=== PATIENT | male | born 1950 | race Caucasian/White ===

== ENCOUNTER 2020-03-05 15:23 | Outpatient (REF) | payer MEDICARE, SELFPAY | END 2020-03-05 15:24 | disposition home or self-care (01) | LOC: HO.BBR 15:23 | PROVIDERS: PCP Internal Medicine; Visit Provider Internal Medicine | DX: D45 Polycythemia vera (principal) | CPT/HCPCS: 36415 ==

== ENCOUNTER 2020-06-04 15:24 | Outpatient (REF) | payer MEDICARE, SELFPAY | END 2020-06-04 15:25 | disposition home or self-care (01) | LOC: HO.BBR 15:24 | PROVIDERS: Visit Provider Internal Medicine | DX: D45 Polycythemia vera (principal) | CPT/HCPCS: 85014; 85018; 99195 ==

== ENCOUNTER 2020-09-24 12:55 | Outpatient (REF) | payer MEDICARE, SELFPAY | END 2020-09-24 12:56 | disposition home or self-care (01) | LOC: HO.BBR 12:55 | PROVIDERS: Visit Provider Internal Medicine | DX: D45 Polycythemia vera (principal) | CPT/HCPCS: 85014; 85018; 99195 ==

== ENCOUNTER 2021-08-13 15:18 | Outpatient (REF) | payer MEDICARE, SELFPAY | END 2021-08-13 15:19 | disposition home or self-care (01) | LOC: HO.BBR 15:18 | PROVIDERS: Visit Provider Internal Medicine | DX: D45 Polycythemia vera (principal) | CPT/HCPCS: 85014; 85018; 99195 ==

== ENCOUNTER 2022-03-05 15:14 | Outpatient (REF) | payer MEDICARE, SELFPAY ==
[2022-03-05 17:00] LABS: Prostate Specific Antigen 0.72 ng/mL (<0.05-4.0)
== END 2022-03-05 15:15 | disposition home or self-care (01) ==
LOC: HO.BBR 15:14
PROVIDERS: Urology; Visit Provider Internal Medicine
DX: R97.20 Elevated prostate specific antigen [PSA] (principal); D45 Polycythemia vera; Z12.5 Encounter for screening for malignant neoplasm of prostate
CPT/HCPCS: 36415; 84153; 85014; 85018; 99195

== ENCOUNTER 2022-05-31 15:28 | Outpatient (REF) | payer MEDICARE, SELFPAY | END 2022-05-31 15:29 | disposition home or self-care (01) | LOC: HO.BBR 15:28 | PROVIDERS: Visit Provider Internal Medicine | DX: D45 Polycythemia vera (principal) | CPT/HCPCS: 85014; 85018; 99195 ==

== ENCOUNTER 2022-09-22 15:15 | Outpatient (REF) | payer MEDICARE, SELFPAY | END 2022-09-22 15:16 | disposition home or self-care (01) | LOC: HO.BBR 15:15 | PROVIDERS: Visit Provider Internal Medicine | DX: D45 Polycythemia vera (principal) | CPT/HCPCS: 85014; 85018; 99195 ==

== ENCOUNTER 2023-01-07 15:17 | Outpatient (REF) | payer MEDICARE, SELFPAY | END 2023-01-07 15:18 | disposition home or self-care (01) | LOC: HO.BBR 15:17 | PROVIDERS: PCP Internal Medicine; Visit Provider Internal Medicine | DX: D45 Polycythemia vera (principal) | CPT/HCPCS: 85018; 99195 ==

== ENCOUNTER 2023-10-17 15:11 | Outpatient (REF) | payer MEDICARE, SELFPAY | END 2023-10-17 15:12 | disposition home or self-care (01) | LOC: HO.BBR 15:11 | PROVIDERS: PCP Internal Medicine; Visit Provider Internal Medicine | DX: D45 Polycythemia vera (principal) | CPT/HCPCS: 85018; 99195 ==

== ENCOUNTER 2024-04-18 11:07 | Outpatient (AMB) | payer MEDICARE, SELFPAY ==
--- NOTE | 2024-04-18 11:47 | HO.NEPHOV ---
Vital Signs 04/18/24 11:51 Height 5 ft 5 in Weight 145 lb 6 oz BMI 24.2 BP 120/60 Blood Pressure Location Rt brachial Position Sitting Pulse 77 Pulse Source Pulse Oximeter Pulse Oximetry (%) 97 Oxygen Delivery Method Room Air Intake Visit Reasons: ENP: ETELVINA - Urgent Referral/ LVM Slubber Tender Required: No Accompanied by: Self / Same As Patient Allergies No Known Allergies Allergy (Verified 04/18/24 11:51) HPI Comments Details: Thank you for referring this delightful gentleman for evaluation of ETELVINA on CKD. He is known to have CAD needing PCI. He also has H/O ischemic cardiomyopathy and has been closely followed up by Dr Vizcaino. He has been on anti platelet medication as well as jardiance as well as Entresto. Recently he had diarrhea with development of hyperkalemia as well as ETELVINA. He was taking Entresto as well as Jardiance at that time. 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 He also has been having edema without any other signs of heart failure. Urine studies at that time showed protein. He has H/O nephritis in the past. He denies hematuria, dysuria, hemoptysis, hemetemesis, melena, sinusitis, recent antibiotics, regular NSAID's, hypercalcemia, new bone pain, H/O malignancies. He continues to have significantly lower GFR and was sent over to me for evaluation. 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 He is concerned about his drop in renal function. [facility] Medical History (Updated 04/18/24 @ 12:18 by Sridhar Hawkins MD) Ischemic cardiomyopathy Atherosclerosis of pilot station coronary artery of pilot station heart without angina pectoris Acne rosacea Elevated serum creatinine Primary osteoarthritis of right knee Right hand weakness Onychomycosis of toenail BPH with obstruction/lower urinary tract symptoms Polycythemia vera Surgical History (Updated 04/18/24 @ 11:48 by Yara Adame MA) H/O repair of rotator cuff Family History (Updated 04/18/24 @ 11:48 by Yara Adame MA) Mother Heart attack Father Colon cancer Social History (Updated 04/18/24 @ 11:47 by Yara Adame MA) Alcohol intake: never Patient Tobacco Use Status: Never used Tobacco Review of Systems Const All systems reviewed & are unremarkable except as noted in HPI and below Physical Exam Vital Signs: Last Vital Signs Pulse 77 04/18/24 11:51 BP 120/60 04/18/24 11:51 Pulse Ox 97 04/18/24 11:51 Oxygen Delivery Method Room Air 04/18/24 11:51 BMI result Body Mass Index 24.2 Const General: comfortable and no acute distress Orientation/consciousness: patient oriented x3 HEENT Head: Yes normocephalic Mouth: Normal oral and palatal mucosa present Eyes EOM: EOMs intact bilaterally Neck Neck: Yes supple Resp Auscultation: clear to auscultation bilaterally Cardio Jugular venous distension: no JVD Rate: regular rate GI Palpation (GI): Soft to palpation Auscultation: normal bowel sounds General: Yes no CVA tenderness Back/Spine/Pelvis Back: no CVA tenderness Skin General skin exam: no rashes or lesions noted Neuro General: patient oriented x3 and moves all extremities Results Reviewed Nephrology Results: Sodium 139 mmol/L (135-145) 05/02/24 Potassium 6.2 mmol/L (3.3-5.1) H* 05/02/24 Chloride 113 mmol/L (96-108) H 05/02/24 Carbon Dioxide 16 mmol/L (22-29) L 05/02/24 BUN 69 mg/dL (9-16) H 05/02/24 Creatinine 4.33 mg/dL (0.5-1.4) H* 05/02/24 Calcium 8.5 mg/dL (8.4-10.2) 05/02/24 Phosphorus 4.9 mg/dL (2.7-4.5) H 05/02/24 PTH Intact 276.0 pg/mL (8.7-77.1) H 05/02/24 Urine Creatinine 56.10 mg/dL 05/02/24 Protein/Creatinin Ratio 6.70 (<0.2) H 05/02/24 Assessment & Plan Assessment & Plan (1) Acute kidney injury superimposed on stage 3a chronic kidney disease: Code(s): N17.9 - Acute kidney failure, unspecified; N18.31 - Chronic kidney disease, stage 3a Category: Medical Plan Pat has CKD likely due to H/O recurrent nephritis as well as vascular disease. He has ETELVINA likely due to a possible combination of exacerbation of GN as well as development of tubular injury due to diarrhea while taking Entresto and Jardiance. His urine output is good. He recently did not have any recent vascular procedures. Cholesterol embolism is unlikely even though he has been on blood thinner. I have ordered detailed work up. He will need renal biopsy. I encouraged him to remain off Entresto and Jardiance for now. He does not take NSAID's. He will need renal imaging if not done already. He does not need renal replacement now but should remain on a low K diet. All these have been explained in detail. Time spent retrieving and reviewing records, encounter and documentation 53 minutes. All questions answered and follow up given Orders: Orders Creatinine 1 Week N17.9 - Acute kidney failure, unspecified, N18.31 - Chronic kidney disease, stage 3a Blood Urea Nitrogen 1 Week N17.9 - Acute kidney failure, unspecified, N18.31 - Chronic kidney disease, stage 3a Immunofixation Pnl, Serum 1 Week N17.9 - Acute kidney failure, unspecified, N18.31 - Chronic kidney disease, stage 3a Vitamin D 25-OH Total 1 Week N17.9 - Acute kidney failure, unspecified, N18.31 - Chronic kidney disease, stage 3a Phosphorus 1 Week N17.9 - Acute kidney failure, unspecified, N18.31 - Chronic kidney disease, stage 3a Proteinase 3 PR3 Antibodies 1 Week N17.9 - Acute kidney failure, unspecified, N18.31 - Chronic kidney disease, stage 3a Anti Glomerular Basement Memb 1 Week N17.9 - Acute kidney failure, unspecified, N18.31 - Chronic kidney disease, stage 3a Complement C3 1 Week N17.9 - Acute kidney failure, unspecified, N18.31 - Chronic kidney disease, stage 3a Complement C4 1 Week N17.9 - Acute kidney failure, unspecified, N18.31 - Chronic kidney disease, stage 3a Electrolytes 1 Week N17.9 - Acute kidney failure, unspecified, N18.31 - Chronic kidney disease, stage 3a Calcium 1 Week N17.9 - Acute kidney failure, unspecified, N18.31 - Chronic kidney disease, stage 3a Immunofixation, Random Urine 1 Week N17.9 - Acute kidney failure, unspecified, N18.31 - Chronic kidney disease, stage 3a Parathyroid Hormone Intact 1 Week N17.9 - Acute kidney failure, unspecified, N18.31 - Chronic kidney disease, stage 3a Anti DNA DS Antibody 1 Week N17.9 - Acute kidney failure, unspecified, N18.31 - Chronic kidney disease, stage 3a Myeloperoxidase Antibody 1 Week N17.9 - Acute kidney failure, unspecified, N18.31 - Chronic kidney disease, stage 3a Phospholipase A2 Receptor Pnl 1 Week N17.9 - Acute kidney failure, unspecified, N18.31 - Chronic kidney disease, stage 3a Prothrombin Time INR 1 Week N17.9 - Acute kidney failure, unspecified, N18.31 - Chronic kidney disease, stage 3a Protein Creatinine Ratio, Ur 1 Week N17.9 - Acute kidney failure, unspecified, N18.31 - Chronic kidney disease, stage 3a Coding Level of Care Code New Pt Level 5 (06297) Diagnoses Acute kidney injury superimposed on stage 3a chronic kidney disease N17.9; N18.31
[2024-04-18 11:51] VITALS: BP 120/60; PULSE 77; O2SAT 97; BMI 24.2
--- OUTSIDE RECORDS SUMMARY | 2024-04-18 12:58 | XMS_ITS | Clinical Summary ---
Author Organization [facility] Facility Address [address] [address] Care Team Providers Care Placing Judge Name Role Phone Unavailable Primary Care Provider Unavailabl e Medications aspirin (ST KEENAN) 81 MG EC tablet Take 81 mg by mouth 1 (one) time each day Active atorvastatin (LIPITOR) 80 MG tablet Take 80 mg by mouth 1 (one) time each day Active finasteride (PROSCAR) 5 MG tablet Take 5 mg by mouth 1 (one) time each day Do not crush, chew, or split. Active metoprolol succinate XL (TOPROL XL) 25 MG 24 hr tablet Take 25 mg by mouth 1 (one) time each day Do not crush or chew. Active tamsulosin (FLOMAX) 0.4 MG 24 hr capsule Take 0.4 mg by mouth 1 (one) time each day Active ticagrelor (BRILINTA) 90 MG tablet Take 90 mg by mouth in the morning and 90 mg in the evening. Active acetaminophen (TYLENOL) 325 MG tablet Take by mouth every 6 (six) hours if needed for mild pain Active Melatonin 3 MG capsule Take by mouth Active ONDANSETRON HCL IJ Inject as directed Active sennosides-docu sate sodium (SENOKOT-S) 8.6-50 MG tablet Take 1 tablet by mouth 1 (one) time each day Active Active Problems Problem Noted Date Diagnosed Date Leukocytosis 12/02/2022 Polycythemia 12/02/2022 Thrombocytosis 12/02/2022 Ischemic cardiomyopathy 12/02/2022 Social History Tobacco Use Types Packs/Day Years Used Date Smoking Tobacco: Never Assessed Sex and Gender Information Value Date Recorded Sex Assigned at Not on file Legal Sex Male 10:46 AM EDT Gender Identity Not on file Sexual Orientation Not on file Plan of Treatment Health Maintenance Due Date Last Done Comments Colorectal Cancer Screening: Annual FOBT 1997 Colorectal Cancer Screening: Colonoscopy 1997 Colorectal Cancer Screening: Sigmoidoscopy 1997 Influenza Vaccine (#1) 2023 2, 01/05/2017, 12/27/2015, Additional history exists Pneumococcal Vaccine: 65+ Years Completed 01/05/2017, 12/27/2015 Hepatitis B Vaccine Aged Out No longe r eligible based on patient's age to complete this topic Insurance [facility]
--- OUTSIDE RECORDS SUMMARY | 2024-04-18 12:59 | XMS_ITS | Encounter Summary ---
Author Organization [facility] Address [phone] [place] [address] Care Team Providers Care Vibrating Screen Operator Name Role Phone Ken Kyle MD Primary Care Provider [phone] Tate Moulton MD Unavailable Tanisha Perkins MD Unavailable [phone] Harsh Ross MD Unavailable [phone] Suellen Mccann MD Unavailable [phone] Chante Vizcaino MD Unavailable [phone] Reason for Referral * Consultation (Within 3 days (urgent)) - Pending Review Specialty Diagnoses / Procedures Referred By Nona leon Referred To Contact Diagnoses Acute kidney injury Ken Kyle MD [address] [facility], [address] [place] [address] Email: Referral ID Status Reason Start Date Expiration Date V isits Requested Visits Authorized [id number] Pending Review 04/08/2024 04/07/2025 1 1 Scheduling Instructions [facility] Reason for Visit * Reason Onset Date Comments Triage 04/06/2024 Yellow - High Po tassium Encounter Details Date Type Department Care Team (Late st Contact Info) Description 04/06/2024 Telephone [employer] [address] [place] [address] Ken Kyle MD [address] [facility], [address] [place] [address] Triage (Yellow - High Potassium) Social History Tobacco Use Types Packs/Day Years Used Date Smoking Tobacco: Never Smokeless Tobacco: Never Alcohol Use Standard Drinks/Week Comments Yes 0 (1 standard drink = 0.6 oz pur e alcohol) occ Education Answer Date Recorded Are you interested in more education? Not on deep e 07/02/2022 Are you concerned about learning? Not on file 07/02/2022 No 07/02/2022 No 07/02/2022 Digital Access Answer Date Recorded No 08/02/2022 No 08/02/2022 Reliable internet access at home? Not on file 08/02/2022 Device with a working camera? Not on file Intimate Partner Violence Answer Date R ecorded Denied Basic Needs Not on file 02/24/2023 In the past 12 months have y ou been in a relationship with a person who hurts, threatens, or tries to control you? No 02/24/2023 Worried food would run out Not on file 02/24 In the past 12 months have y ou been in a relationship with a person who hurts, threatens, or tries to control you? No 02/24/2023 Sex and Gender Information Value Date Recorded Sex Assigned at Not on file Gender Identity Not on file Sexual Orientation Not on file documented as of this encounter Progress Notes * Ken Kyle MD - 04/08/2024 1:27 PM ESTAddended by: KEN KYLE on: 04/08/2024 01:27 PM Modules accepted: Orders * Kodi Sanchez RN - 04/06/2024 2:38 PM ESTAddended by: KODI SANCHEZ on: 04/06/2024 02:38 PM Modules accepted: Orders * Kodi Sanchez RN - 04/06/2024 2:24 PM EST Spoke to Pat, he denies any sx wouldn't even know it if he didn't have blood work . Patient notified of instructions per provider. Verbalizes understanding and agreement Requesting urgent neph referral be sent to [facility], pended. 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 He has appts already Tue and Tue. * Judy Negron - 04/06/2024 12:09 PM EST Pt calling the office per recommendation of Dr. Kyle, He was advised to call the office for triage. He states he is not having any current symptoms, but his Potassium level is high. Please advise. Central Support Director [employer] (Please do not reply to this user; this inbox is not monitored.) Thank you. * Ken Kyle MD - 04/06/2024 11:37 AM EST I called the patient to review his lab results. I left him a message to call back to talk to triage. His kidney function is still very poor and much worse than it was a few months ago, only slightly better than it was a couple days ago when he was in the emergency room. His potassium is also little bit high. This is most likely a side effect from medication. He should stop Entresto and Farxiga immediately. If he is having any trouble with shortness of breath or significant lower extremity edema, he should return to the emergency room immediately. Otherwise see my recommendations below. He can continue his other medication. He should not take any nonsteroidals. He should follow a low-sodium diet closely. He should also avoid high potassium foods such as fruits and fruit juices. He needs an appointment to see nephrology as soon as possible. I have entered a referral. See if wecan get him an appointment next week. You should also follow-up with me as planned next week. documented in this encounter Plan of Treatment Upcoming Encounters Date Type Department Care Team (Late st Contact Info) Description 08/01/2024 1:00 PM EDT Office Visit [address] [address] Ken Kyle MD [address] [place] [address], [address] [place] [address] [email or web address] Scheduled Referrals Name Type Priority Associated Diagnoses Order Schedule Ambulatory referral to External Nephrology Outpatient Referral Routine Acute kidney injury Ordered: 04/08/2024 documented as of this encounter Visit Diagnoses Diagnosis Acute kidney injury- Primary documented in this encounter Additional Health Concerns Assessment Noted Time PHQ-2 Depression Total Score: 0 02/25/20 23 2:54 PM EST documented as of this encounter Care Teams Vibrating Screen Operator Relationship Specialty Start Date End Date Ken Kyle MD [address] [place] [address], [address] [place] [address] PCP - General Internal Medicine 05/15/18 Tate Moulton MD [address] [place] [address], [address] [place] [address] [email or web address] Urology 06/19/18 Tanisha Perkins MD [address] [place] [id number] [email or web address] Oncology 06/19/18 Harsh Ross MD [facility] [address] [facility] [address] [place] [address] Orthopedic Surgery 10/15/19 Suellen Mccann MD [address] [facility] [address] [place] [address] Gastroenterology 10/23/20 Chante Vizcaino MD [address] [place] [id number] [email or web address] Cardiology 11/12/22 documented as of this encounter Additional Source Comments The information contained in this document represents components of the legal health record. It is not the complete legal health record.[facility]
--- OUTSIDE RECORDS SUMMARY | 2024-04-18 12:59 | XMS_ITS | Encounter Summary ---
Author Organization [facility] Address [phone] [facility] [place] [address] Care Team Providers Care Content Architect Name Role Phone Sherman Miller MD Primary Care Provider [phone] Tate Moulton MD Unavailable Tanisha Perkins MD Unavailable [phone] Harsh Ross MD Unavailable Suellen Mccann MD Unavailable [phone] Chante Vizcaino MD Unavailable [phone] Reason for Visit * Reason Onset Date Comments Referral 04/11/2024 Encounter Details Date Type Department Care Team (Late st Contact Info) Description 04/11/20[address] [facility] Medicine [address] [place] [address] [place] [address] Sherman Miller MD [address] [facility], [address] [place] [address] [email or web address] Referral Social History Tobacco Use Types Packs/Day Years [...] as of this encounter Progress Notes * Elle Sherman RN - 04/11/2024 2:46 PM EST This referral was signed by PCP on 04/08 * Lissette Viera - 04/11/2024 2:25 PM EST [facility] Top Smart Phrases: Referral Request Caller stated this is urgent and if an insurance authorization is not received the pt will have to be rescheduled. 1. Name of the office where the patient has been seen/requests to be seen: [facility] 2. Reason for referral/specialist appointment and the diagnosis code: N17.0 2A. Have you seen this provider before for this same problem? YES/NO: N/A 2B. If this is a new problem, is your PCP aware of your symptoms? YES/NO: N/A 3. Date of appointment(s):04/18/24 4. Name of specialist provider: Dr. Sridhar Hawkins 5. NPI number to enter for referral authorization (enter n/a if not available): [id number] 6. Number of visits requested for referral: 6 7. Fax number of specialist office to send referral authorization: [phone] Central Support Cork Cutter (Please do not reply to this user; this inbox is not monitored.) Thank you. documented in this encounter Plan of Treatment Upcoming Encounters Date Type Department Care Team (Late st Contact Info) Description 08/01/2024 1:00 PM EDT Office Visit [address] [address] Sherman Miller MD [address] [place] [address], [address] [place] [address] [email or web address] documented as of this encounter Visit Diagnoses Not on filedocumented in this encounter Additional Health Concerns Assessment Noted Time PHQ-2 Depression Total Score: 0 02/25/20 23 2:54 PM EST documented as of this encounter Care Teams Content Architect Relationship Specialty Start Date End Date Sherman Miller MD [address] [place] [address], [address] [place] [address] [email or web address] PCP - General Internal Medicine 05/15/18 Tate Moulton MD [address] [place] [address], [address] [place] [id number] [email or web address] Urology 06/19/18 Tanisha Perkins MD [address] [place] [id number] [email or web address] Oncology 06/19/18 Harsh Ross MD [facility] [address] [address] Orthopedic Surgery 10/15/19 Suellen Mccann MD [address] [facility] [address] [place] [address] Gastroenterology 10/23/20 Chante Vizcaino MD [address] [place] [address] [email or web address] Cardiology 11/12/22 documented as of this encounter Additional Source Comments The information contained in this document represents components of the legal health record. It is not the complete legal health record.[facility]
--- OUTSIDE RECORDS SUMMARY | 2024-04-18 12:59 | XMS_ITS | Encounter Summary ---
Author Organization [facility] Address [phone] [place] [address] Care Team Providers Care Rotogravure Press Operator Name Role Phone Sherman Miller MD Primary Care Provider [phone] Tate Moulton MD Unavailable Tanisha Perkins MD Unavailable [phone] Harsh Ross MD Unavailable Suellen Mccann MD Unavailable [phone] Chante Vizcaino MD Unavailable [phone] Reason for Visit * Reason Comments ER Encounter Details Date Type Department Care Team (Late st Contact Info) Description 04/10/2024 11:30 AM EST Office Visit [facility] Medicine [address] [place] [address] [place] [address] Sherman Miller MD 22 [facility], [address] [place] [address] [email or web address] Acute kidney injury (Primary Dx); BPH with obstruction/lower urinary tract symptoms; Ischemic cardiomyopathy; Polycythemia vera Social History Tobacco Use Types Packs/Day Years [...] on file documented as of this encounter Last Filed Vital Signs Vital Sign Reading Time Taken Comments Blood Pressure 147/75 04/10/2024 11:34 AM EST Pulse 73 04/10/2024 11:34 AM EST Temperature 36.8 ??C (98.2 ??F) 04/10/2024 11:[address] Respiratory Rate - - Oxygen Saturation 97% 04/10/2024 11:34 AM EST Inhaled Oxygen Concentration - - Weight 65.5 kg (144 lb 6.4 oz) 04/10/2024 11:34 AM EST Height 164.4 cm (5' 4.72 ) 04/10/2024 11:[address] Body Mass Index 24.23 04/10/2024 11:34 AM EST documented in this encounter Progress Notes * Sherman Miller MD - 04/10/2024 11:30 AM EST Subjective: Pauline Sandoval is a 73 y.o. male seen for follow-up of acute kidney injury. His creatinine had jumped up to 5 after he had an acute gastrointestinal illness associated with diarrhea. Recheck of his creatinine last week shows creatinine was down to 4.4. His baseline has been between 1.4 and 1.8. Last week Entresto and Farxiga were discontinued. He has been feeling well. No edema, chest pain, or shortness of breath. He has been feeling well. He has been eating and drinking normally. He is voiding normally. BPH: Ultrasound in the [place] emergency department showed a PVR 500 cc, then down to 200 cc when he tried to void again. He has been taking tamsulosin for over a year. Ultrasound at urology about a year ago showed a PVR of 36 cc per Heart failure has been doing well. No edema, orthopnea, or shortness of breath. Current Outpatient Medications Ordered in [facility] Medication Sig Abbreviated Dosage ascorbic acid, vitamin C, (VITAMIN C) 500 MG tablet Take 500 mg by mouth daily. See instructions for application aspirin 81 MG EC tablet Take 81 mg by mouth. See instructions for application atorvastatin (LIPITOR) 80 MG tablet Take 80 mg by mouth. See instructions for application BRILINTA 90 mg Tab Take 1 tablet by mouth 2 (two) times a day. See instructions for application cholecalciferol (VITAMIN D3) 25 MCG (1,000 unit) tablet Take 1,000 Units by mouth daily. See instructions for application finasteride (PROSCAR) 5 mg tablet Take 5 mg by mouth daily. See instructions for application metoprolol succinate (TOPROL-XL) 25 MG 24 hr tablet Take 25 mg by mouth. See instructions for application nitroglycerin (NITROSTAT) 0.[address] 0.4 mg under the tongue. See instructions for application tamsulosin (FLOMAX) 0.4 mg Cap Take 0.4 mg by mouth 2 (two) times a day. See instructions for application Patient Active Problem List Diagnosis Date Noted Acute kidney injury 10/23/2020 Ischemic cardiomyopathy 02/22/2023 Atherosclerosis of [place] coronary artery of [place] heart without angina pectoris 11/12/2022 Acne rosacea 02/24/2022 Primary osteoarthritis of right knee 10/23/2020 Onychomycosis of toenail 10/15/2019 Right hand weakness 10/15/2019 Polycythemia vera 06/19/2018 BPH with obstruction/lower urinary tract symptoms 06/19/2018 Past Medical History: Diagnosis Date BPH with obstruction/lower urinary tract symptoms 06/19/2018 Bunion of great toe of left foot Bunion of great toe of right foot Elevated blood pressure reading 2017 Resolved 2018, became orthostatic on SHANICE inhibitor. Onychomycosis bilateral Polycythemia vera 06/19/2018 Past Surgical History: Procedure Laterality Date BUNIONECTOMY Right PCI- DRUG ELUTING STENT 10/21/2022 LAD , 2 ARSALAN, Dr Vizcaino, [facility] ROTATOR CUFF REPAIR Right 2012 ROTATOR CUFF REPAIR Left 2008 (Not in a hospital admission) No Known Allergies Social History Tobacco Use Smoking status: Never Smokeless tobacco: Never Substance Use Topics Alcohol use: Yes Comment: occ Family History Problem Relation Age of Onset Aneurysm Mother Colon cancer Father No Known Problems Daughter teacher for [employer] No Known Problems Daughter teacher, [employer] No Known Problems Son IT for [employer] Review of Systems Review of Systems Vitals: 04/10/24 1134 BP: (!) 147/75 BP Location: Right arm Cuff Size: Medium Pulse: 73 Temp: 36.8 ??C (98.2 ??F) SpO2: 97% Weight: 65.5 kg (144 lb 6.4 oz) Height: 164.4 cm (5' 4.72 ) Body mass index is 24.23 kg/m??. Objective: Physical Exam Constitutional: General: He is not in acute distress. Appearance: He is well-developed. Cardiovascular: Rate and Rhythm: Normal rate and regular rhythm. Heart sounds: Normal heart sounds. No murmur heard. No gallop. Pulmonary: [place]: No respiratory distress. Breath sounds: Normal breath sounds. No rales. Musculoskeletal: Right lower leg: No edema. Left lower leg: No edema. Data Review Hospital Outpatient Visit on 04/05/2024 Component Date Value Ref Range Status SODIUM 04/05/2024 133 133 - 146 mmol/L Final CHLORIDE 04/05/2024 100 96 - 108 mmol/L Final POTASSIUM 04/05/2024 5.6 (H) 3.3 - 5.1 mmol/L Final CO2 04/05/2024 22 21 - 35 mmol/L Final BUN 04/05/2024 74 (H) 6 - 19 mg/dL Final CREATININE 04/05/2024 4.40 (H) 0.5 - 1.5 mg/dL Final GLUCOSE 04/05/2024 83 70 - 99 mg/dL Final CALCIUM 04/05/2024 8.0 (L) 8.4 - 10.3 mg/dL Final EGFR 04/05/2024 13 (L) >59 mL/min/1.73m2 Final Estimated glomerular filtration rate calculated using the CKD-EPI refit equation. ANION GAP 04/05/2024 17 10 - 20 mmol/L Final Hospital Outpatient Visit on 03/29/2024 Component Date Value Ref Range Status LIPASE 03/29/2024 42 16 - 63 U/L Final ALKALINE PHOSPHATASE 03/29/2024 146 (H) 39 - 117 U/L Final TOTAL BILIRUBIN 03/29/2024 0.4 0.0 - 1.2 mg/dL Final DIRECT BILIRUBIN 03/29/2024 <0.2 0 - 0.3 mg/dL Final Bilirubin (Indirect) 03/29/2024 NOT CALCULATED 0 - 1.5 mg/dL Final AST 03/29/2024 15 0 - 37 U/L Final ALT 03/29/2024 8 0 - 40 U/L Final TOTAL PROTEIN 03/29/2024 6.3 (L) 6.5 - 8.0 g/dL Final ALBUMIN 03/29/2024 3.3 (L) 3.9 - 4.8 g/dL Final GLOBULIN 03/29/2024 3.0 1 - 4.8 g/dL Final A/G Ratio 03/29/2024 1.10 1.00 - 4.80 RATIO Final SODIUM 03/29/2024 136 133 - 146 mmol/L Final CHLORIDE 03/29/2024 104 96 - 108 mmol/L Final POTASSIUM 03/29/2024 6.4 3.3 - 5.1 mmol/L Final Comment: Critical value: Results called to and read back by: null CO2 03/29/2024 17 (L) 21 - 35 mmol/L Final BUN 03/29/2024 76 (H) 6 - 19 mg/dL Final CREATININE 03/29/2024 5.00 (H) 0.5 - 1.5 mg/dL Final GLUCOSE 03/29/2024 73 70 - 99 mg/dL Final CALCIUM 03/29/2024 7.9 (L) 8.4 - 10.3 mg/dL Final EGFR 03/29/2024 11 (L) >59 mL/min/1.73m2 Final Estimated glomerular filtration rate calculated using the CKD-EPI refit equation. ANION GAP 03/29/2024 21 (H) 10 - 20 mmol/L Final WBC 03/29/2024 26.90 (H) 4.00 - 11.00 K/uL Final RBC 03/29/2024 8.72 (H) 4.50 - 5.90 M/uL Final HGB 03/29/2024 15.8 13.5 - 17.5 g/dL Final HCT 03/29/2024 59.2 (H) 41.0 - 53.0 % Final PLT 03/29/2024 576 (H) 150 - 450 K/uL Final MCV 03/29/2024 67.9 (L) 80.0 - 100.0 fL Final MCH 03/29/2024 18.1 (L) 27.0 - 31.0 pg Final MCHC 03/29/2024 26.7 (L) 32.0 - 36.0 g/dL Final RDW 03/29/2024 22.3 (H) 11.5 - 14.5 % Final MPV 03/29/2024 10.2 8.4 - 12.0 fL Final NRBC 03/29/2024 0.00 0.00 /100 WBCs Final ABSOLUTE NRBC 03/29/2024 0.00 0.00 K/uL Final DIFF METHOD 03/29/2024 Auto Final NEUTS 03/29/2024 87.2 (H) 48.0 - 76.0 % Final LYMPHS 03/29/2024 4.4 (L) 18.0 - 41.0 % Final MONOS 03/29/2024 3.6 (L) 4.0 - 11.0 % Final EOS 03/29/2024 3.7 0.0 - 5.0 % Final BASOS 03/29/2024 0.4 0.0 - 1.5 % Final Granulocytes, immature (%) 03/29/2024 0.7 0.0 - 0.9 % Final ABSOLUTE NEUTS 03/29/2024 23.44 (H) 1.92 - 7.60 K/uL Final ABSOLUTE LYMPHS 03/29/2024 1.18 0.72 - 4.10 K/uL Final ABSOLUTE MONOS 03/29/2024 0.96 0.16 - 1.10 K/uL Final ABSOLUTE EOS 03/29/2024 1.00 (H) 0.00 - 0.50 K/uL Final ABSOLUTE BASOS 03/29/2024 0.12 0.00 - 0.15 K/uL Final Granulocytes, immature 03/29/2024 0.20 (H) 0.00 - 0.09 K/uL Final No results found for any visits on 04/10/24. 1. Acute kidney injury (Primary) Assessment & Plan: Probably multifactorial. We should see a significant improvement since stopping Entresto. There clearly was a component of dehydration, but also may be due to his BPH since he did have a significantly elevated PVR. Referral was already sent to nephrology and the patient is going to schedule an appointment for initial consultation. He also will see urology to review his BPH and elevated PVR. He may need more medication or possibly surgery if his PVR remains high. Orders: - Basic metabolic panel 2. BPH with obstruction/lower urinary tract symptoms 3. Ischemic cardiomyopathy Assessment & Plan: Symptom martin he is doing well since stopping Entresto and farxiga. His blood pressure is a little higher since the medication change. He is going to see cardiology again tomorrow. I like to see what his metabolic panel looks like today. If he significantly better, he possibly could go on a lower dose of an ARB or SHANICE inhibitor. I will leave this up to cardiology. 4. Polycythemia vera Assessment & Plan: Hemoglobin has gone up a little bit. He will follow-up as planned with hematology next month. He islikely going to be due for another phlebotomy. Return in about 1 month (around 05/08/2024). There are no Patient Instructions on file for this visit. I have maintained a long-term longitudinal relationship with this patient, overseeing the care of their chronic medical conditions. This has significantly influenced my decision-making and treatment plans during today's encounter. documented in this encounter Miscellaneous Notes * Assessment & Plan Note - Sherman Miller MD - 04/10/2024 12:04 PM EST Associated Problem(s): Acute kidney injury Probably multifactorial. We should see a significant improvement since stopping Entresto. There clearly was a component of dehydration, but also may be due to his BPH since he did have a significantly elevated PVR. Referral was already sent to nephrology and the patient is going to schedule an appointment for initial consultation. He also will see urology to review his BPH and elevated PVR. He may need more medication or possibly surgery if his PVR remains high. * Assessment & Plan Note - Sherman Miller MD - 04/10/2024 12:03 PM EST Associated Problem(s): Ischemic cardiomyopathy Symptom martin he is doing well since stopping Entresto and farxiga. His blood pressure is a little higher since the medication change. He is going to see cardiology again tomorrow. I like to see what his metabolic panel looks like today. If he significantly better, he possibly could go on a lower dose of an ARB or SHANICE inhibitor. I will leave this up to cardiology. * Assessment & Plan Note - Sherman Miller MD - 04/10/2024 12:02 PM EST Associated Problem(s): Polycythemia vera Hemoglobin has gone up a little bit. He will follow-up as planned with hematology next month. He islikely going to be due for another phlebotomy. documented in this encounter Plan of Treatment Upcoming Encounters Date Type Department Care Team (Late st Contact Info) Description 08/01/2024 1:00 PM EDT Office Visit [facility] Medicine [address] [place] [address] [place] [address] Sherman Miller MD [address] [place] [address], [address] [place] [address] [email or web address] documented as of this encounter Results * (ABNORMAL) Basic metabolic panel (04/10/2024 12:14 PM EST) SODIUM 137 133 - 146 mmol/L [facility] CHLORIDE 105 96 - 108 mmol/L [facility] POTASSIUM 5.7(H) 3.3 - 5.1 mmol/L [facility] CO2 18(L) 21 - 35 mmol/L [facility] BUN 76(H) 6 - 19 mg/dL [facility] CREATININE 4.30(H) 0.5 - 1.5 mg/dL [facility] GLUCOSE 85 70 - 99 mg/dL [facility] CALCIUM 8.0(L) 8.4 - 10.3 mg/dL [facility] EGFR 14(L) >59 mL/min/1.7 3m2 [facility] Comment:Estimated glomerular filtration rate calculated using the CKD-EPI refit equation. ANION GAP 20 10 - 20 mmol/L [facility] Blood 04/10/2024 12:1 4 PM EST 04/10/2024 12:25 PM EST Sherman Miller MD LAB BLOOD ORDERABL ES Performing Organization Address City/State/[facility] [[email or web address]] Co de Phone Number [facility] [address] [place] [address] documented in this encounter Visit Diagnoses Diagnosis Acute kidney injury- Primary BPH with obstruction/lower urinary tract symptoms Ischemic cardiomyopathy Other specified forms of chronic ischemic heart disease Polycythemia vera documented in this encounter Additional Health Concerns Assessment Noted Time PHQ-2 Depression Total Score: 0 02/25/20 23 2:54 PM EST documented as of this encounter Care Teams Rotogravure Press Operator Relationship Specialty Start Date End Date Sherman Miller MD [address] [place] [address], [address] [place] [address] [email or web address] PCP - General Internal Medicine 05/15/18 Tate Moulton MD [address] [place] [address], [address] [place] [address] [email or web address] 06/19/18 Tanisha Perkins MD [address] [place] [address] [email or web address] Oncology 06/19/18 Harsh Ross MD [address] [address] Orthopedic Surgery 10/15/19 Suellen Mccann MD [address] [facility] [address] [place] [address] Gastroenterology 10/23/20 Chante Vizcaino MD [address] [place] [address] Cardiology 11/12/22 documented as of this encounter Additional Source Comments The information contained in this document represents components of the legal health record. It is not the complete legal health record.[facility]
--- OUTSIDE RECORDS SUMMARY | 2024-04-18 12:59 | XMS_ITS | Encounter Summary ---
Author Organization [facility] Address [phone] [email or web address] [address] Care Team Providers Care Solid Waste Landfill Technician Name Role Phone Sherman Miller MD Primary Care Provider [phone] Tate Moulton MD Unavailable Tanisha Perkins MD Unavailable [phone] Harsh Ross MD Unavailable Suellen Mccann MD Unavailable [phone] Chante Vizcaino MD Unavailable [phone] Encounter Details Date Type Department Care Team (Latest Contact Info) Description 04/10/2024 12:01 PM EST - 04/10/2024 11:59 PM EST Hospital Encounter [facility] [address] [place] [address] [place], [place] [id number] Sherman Miller MD [address] [facility] [place] [address] [email or web address] Discharge Disposition: Home or Self Care Social History Tobacco Use Types Packs/Day Years [...] on file documented as of this encounter Medications at Time of Discharge Medication Sig Dispensed Refills Start Date End Date ascorbic acid, vitamin C, (VITAMIN C) 500 MG tablet Take 500 mg by mouth daily. aspirin 81 MG EC tablet Take 81 mg by mouth. atorvastatin (LIPITOR) 80 MG tablet Take 80 mg by mouth. 10/27/2022 BRILINTA 90 mg Tab Take 1 tablet by mouth 2 (two) times a day. 10/27/2022 cholecalciferol (VITAMIN D3) 25 MCG (1,000 unit) tablet Take 1,000 Units by mouth daily. finasteride (PROSCAR) 5 mg tablet Take 5 mg by mouth daily. metoprolol succinate (TOPROL-XL) 25 MG 24 hr tablet Take 25 mg by mouth. 10/27/2022 nitroglycerin (NITROSTAT) 0.[address] 0.4 mg under the tongue. 10/27/2022 tamsulosin (FLOMAX) 0.4 mg Cap Take 0.4 mg by mouth 2 (two) times a day. documented as of this encounter Plan of Treatment Upcoming Encounters Date Type Department Care Team (Late st Contact Info) Description 08/01/2024 1:00 PM EDT Office Visit [facility] [address] [place] [address] [place] [address] Sherman Miller MD [address] [facility] [address] [place] [address] [email or web address] documented as of this encounter Procedures Procedure Name Priority Date/Time Associated Diagnosis Comments BASIC METABOLIC PANEL Routine 04/10/2024 12:14 PM EST Acute kidney injury documented in this encounter Results * (ABNORMAL) Basic metabolic panel (04/10/2024 12:14 PM EST) SODIUM 137 133 - 146 mmol/L [facility] CHLORIDE 105 96 - 108 mmol/L [facility] POTASSIUM 5.7(H) 3.3 - 5.1 mmol/L [facility] CO2 18(L) 21 - 35 mmol/L [facility] BUN 76(H) 6 - 19 mg/dL [facility] CREATININE 4.30(H) 0.5 - 1.5 mg/dL [facility] GLUCOSE 85 70 - 99 mg/dL [facility] CALCIUM 8.0(L) 8.4 - 10.3 mg/dL [facility] EGFR 14(L) >59 mL/min/1.7 3m2 [facility] Comment:Estimated glomerular filtration rate calculated using the CKD-EPI refit equation. ANION GAP 20 10 - 20 mmol/L [facility] Blood 04/10/2024 12:1 4 PM EST 04/10/2024 12:25 PM EST Sherman Miller MD LAB BLOOD ORDERABL ES [address] [address] documented in this encounter Visit Diagnoses Diagnosis Acute kidney injury documented in this encounter Additional Health Concerns Assessment Noted Time PHQ-2 Depression Total Score: 0 02/25/20 23 2:54 PM EST documented as of this encounter Care Teams Solid Waste Landfill Technician Relationship Specialty Start Date End Date Sherman Miller MD [address] [place] [address], [address] [place] [address] [email or web address] PCP - General Internal Medicine 05/15/18 Tate Moulton MD [address] [facility], [address] [place] [address] [email or web address] Urology 06/19/18 Tanisha Perkins MD [address] [place] [address] [email or web address] Oncology 06/19/18 Harsh Ross MD [address] [place] [address] Orthopedic Surgery 10/15/19 Suellen Mccann MD [address] [facility] [address] [place] [address] Gastroenterology 10/23/20 Chante Vizcaino MD [address] [place] [address] [email or web address] Cardiology 11/12/22 documented as of this encounter Additional Source Comments The information contained in this document represents components of the legal health record. It is not the complete legal health record.[facility]
--- OUTSIDE RECORDS SUMMARY | 2024-04-18 12:59 | XMS_ITS | Encounter Summary ---
Author Organization [facility] Address [phone] [place] [address] Care Team Providers Care Skein Yard Drier Name Role Phone Sherman Miller MD Primary Care Provider [phone] Tate Moulton MD Unavailable Tanisha Perkins MD Unavailable [phone] Harsh Ross MD Unavailable [phone] Suellen Mccann MD Unavailable [phone] Chante Vizcaino MD Unavailable [phone] Reason for Referral * Consultation (Within 3 days (urgent)) - Pending Review Specialty Diagnoses / Procedures Referred By Nona leon Referred To Contact Diagnoses Acute kidney injury Sherman Miller MD [address] [facility] [place] [address] Email: [facility] [address] [facility] [place] [address] Referral ID Status Reason Start Date Expiration Date V isits Requested Visits Authorized [id number] Pending Review 04/06/2024 04/06/2025 6 6 Encounter Details Date Type Department Care Team (Late st Contact Info) Description 04/06/2024 Orders Only [address] [place] [address] Sherman Miller MD [address] [place] [address], [address] [place] [address] [email or web address] Acute kidney injury (Primary Dx) Social History Tobacco Use Types Packs/Day Years [...] on file documented as of this encounter Plan of Treatment Upcoming Encounters Date Type Department Care Team (Late st Contact Info) Description 08/01/2024 1:00 PM EDT Office Visit [address] [place] [address] Sherman Miller MD [address] [place] [address], [address] [place] [address] [email or web address] Scheduled Referrals Name Type Priority Associated Diagnoses Order Schedule Ambulatory referral to External Nephrology Outpatient Referral Routine Acute kidney injury Ordered: 04/06/2024 documented as of this encounter Visit Diagnoses Diagnosis Acute kidney injury- Primary documented in this encounter Additional Health Concerns Assessment Noted Time PHQ-2 Depression Total Score: 0 02/25/20 23 2:54 PM EST documented as of this encounter Care Teams Skein Yard Drier Relationship Specialty Start Date End Date Sherman Miller MD [address] [place] [address], [address] [place] [address] [email or web address] PCP - General Internal Medicine 05/15/18 Tate Moulton MD [address] [place] [address], [address] [place] [address] [email or web address] 06/19/18 Tanisha Perkins MD [address] [place] [address] [email or web address] Oncology 06/19/18 Harsh Ross MD [address] [place] [address] Orthopedic Surgery 10/15/19 Suellen Mccann MD [address] [place] [address] Gastroenterology 10/23/20 Chante Vizcaino MD [address] [place] [address] [email or web address] Cardiology 11/12/22 documented as of this encounter Additional Source Comments The information contained in this document represents components of the legal health record. It is not the complete legal health record.[facility]
--- OUTSIDE RECORDS SUMMARY | 2024-04-18 12:59 | XMS_ITS | Encounter Summary ---
Author Organization [facility] Address [phone] [facility] [place] [address] Care Team Providers Care Blind Escort Name Role Phone Sherman Miller MD Primary Care Provider [phone]- [phone] Tate Moulton MD Unavailable Tanisha Perkins MD Unavailable [phone] Harsh Ross MD Unavailable [phone] Suellen Mccann MD Unavailable [phone] Chante Vizcaino MD Unavailable [phone] Reason for Visit * Reason Onset Date Comments Referral 04/02/2024 Kidney care spec ialist question 04/02/2024 Encounter Details Date Type Department Care Team (Late st Contact Info) Description 04/02/2024 Telephone [facility] [address] [place], [place] [phone] Sherman Miller MD [address] [place] [address], [address] [place], [place] [phone] [email or web address] Referral (Kidney manager intensive care ); question Social History Tobacco Use Types Packs/Day Years [...] as of this encounter Progress Notes * Sherman Miller MD - 04/05/2024 2:27 PM EST Will review results to determine if need for nephrology referral. Will discuss with patient at appointment next week * Carolina Corey RN - 04/05/2024 2:17 PM ESTAddended by: CAROLINA COREY on: 04/05/2024 02:17 PM Modules accepted: Orders * Carolina Corey RN - 04/05/2024 2:07 PM EST Spoke to patient, please see PG as there has been updated communication regarding this call. Patient is aware that provider was awaiting documentation from the ED visit, however this was not [facility] ED so it was not clear where to request the documents. Patient states he has already been communicating via [facility] [place], advised to have his labs rechecked before referral to kidney care associated with [facility]. Requested referral be queued regardless and if he does not need to followup with them, he will just cancel. Queued and routed to provider for review and recommendation. * May Huerta - 04/04/2024 2:19 PM EST Pt called in regarding this Pt called kidney assistants and they have not gotten any referral. Please contact and advise pt. Central Support Centrifugal Casting Machine Tender (Please do not reply to this user; this inbox is not monitored.) Thank you. * Sherman Miller MD - 04/03/2024 2:03 PM EST I attempted to call patient and left him a message. Please contact him and see where he is at in terms of getting his acute renal failure and hyperkalemia assessed. It sounds like he went to the emergency department, but was not at [facility]. Please get a copy of the emergency room evaluation. He does have acute renal failure. I am surprised he was not hospitalized unless his renal function was much better in the emergency department. He does need an urgent evaluation by nephrology. * Alva Carpenter - 04/02/2024 9:50 AM EST Pt called stating went to Emergency room over high levels of creatine and potassium over weekend and recommended to kidney specialist.Pt wanted clinical advise from PCP on how to go about this for kidney group [facility] .Please contact and advise. Central Support Centrifugal Casting Machine Tender (Please do not reply to this user; this inbox is not monitored.) Thank you. documented in this encounter Plan of Treatment Upcoming Encounters Date Type Department Care Team (Late st Contact Info) Description 08/01/2024 1:00 PM EDT Office Visit [address] [place] [address] Sherman Miller MD [address] [place] [address], [address] [place] [address] [email or web address] documented as of this encounter Visit Diagnoses Diagnosis Acute kidney injury- Primary documented in this encounter Additional Health Concerns Infection Onset Date Last Indicated Resolved Time CDiff-Risk 03/28/2024 03/28/2024 04/04/2024 1:22 AM EST Assessment Noted Time PHQ-2 Depression Total Score: 0 02/25/20 23 2:54 PM EST documented as of this encounter Care Teams Blind Escort Relationship Specialty Start Date End Date Sherman Miller MD [address] [place] [address], [address] [place] [address] [email or web address] PCP - General Internal Medicine 05/15/18 Tate Moulton MD [address] [place] [address], [address] [place] [address] [email or web address] Urology 06/19/18 Tanisha Perkins MD [address] [place] [address] [email or web address] Oncology 06/19/18 Harsh Ross MD [address] [facility] [address] [place] [address] Orthopedic Surgery 10/15/19 Suellen Mccann MD [address] [facility] [address] [place] [address] Gastroenterology 10/23/20 Chante Vizcaino MD [address] [place] [address] Cardiology 11/12/22 documented as of this encounter Additional Source Comments The information contained in this document represents components of the legal health record. It is not the complete legal health record.[facility]
--- OUTSIDE RECORDS SUMMARY | 2024-04-18 12:59 | XMS_ITS | Encounter Summary ---
Author Organization [facility] Address [phone] [facility] [place] [address] Care Team Providers Care Dispensary Technician Name Role Phone Sherman Miller MD Primary Care Provider [phone] Tate Moulton MD Unavailable Tanisha Perkins MD Unavailable [phone] Harsh Ross MD Unavailable [phone] Suellen Mccann MD Unavailable [phone] Chante Vizcaino MD Unavailable [phone] Encounter Details Date Type Department Care Team (Late st Contact Info) Description 02/23/2024 Orders Only [place] [address] [place], [place] [phone] Provider, MD Eduardo [address] [place] [address] Social History Tobacco Use Types Packs/Day Years [...] Description 08/01/2024 1:00 PM EDT Office Visit [facility] [address] [place] [address] [place] [address] Sherman Miller MD [address] [place] [address], [address] [place] [address] documented as of this encounter Procedures Procedure Name Priority Date/Time Associated Diagnosis Comments OUTSIDE ECHO Routine 02/22/2024 11:27 AM EST documented in this encounter Results * Outside Echo Report Only (02/22/2024 11:27 AM EST) Historical Provider MD ERICA GOODWIN ORDERABLE S documented in this encounter Visit Diagnoses Not on filedocumented in this encounter Additional Health Concerns Assessment Noted Time PHQ-2 Depression Total Score: 0 02/25/20 23 2:54 PM EST documented as of this encounter Care Teams Dispensary Technician Relationship Specialty Start Date End Date Sherman Miller MD [address] [place] [address], [address] [place] [address] PCP - General Internal Medicine 05/15/18 Tate Moulton MD [address] [place] [address], [address] [place] [address] [email or web address] Urology 06/19/18 Tanisha Perkins MD [address] [place] [address] [email or web address] Oncology 06/19/18 Harsh Ross MD [address] [address] Orthopedic Surgery 10/15/19 Suellen Mccann MD [address] [facility] [employer] [address] Gastroenterology 10/23/20 Chante Vizcaino MD [address] [place] [address] [email or web address] Cardiology 11/12/22 documented as of this encounter Additional Source Comments The information contained in this document represents components of the legal health record. It is not the complete legal health record.[facility]
--- OUTSIDE RECORDS SUMMARY | 2024-04-18 12:59 | XMS_ITS | Encounter Summary ---
Author Organization [facility] Address [phone] [facility] [place] [address] Care Team Providers Care Hyster Machine Operator Name Role Phone Sherman Miller MD Primary Care Provider [phone] Tate Moulton MD Unavailable Tanisha Perkins MD Unavailable [phone] Harsh Ross MD Unavailable [phone] Suellen Mccann MD Unavailable [phone] Chante Vizcaino MD Unavailable [phone] Reason for Visit * Reason Onset Date Comments NeuroVirus? 03/23/2024 Encounter Details Date Type Department Care Team (Late st Contact Info) Description 03/23/2024 [address] [facility] [address] [place] [address] Sherman Miller MD [address] [facility], [address] [place] [address] [email or web address] NeuroVirus? Social History Tobacco Use Types Packs/Day Years [...] as of this encounter Progress Notes * Anu Davis RN - 03/23/2024 12:12 PM EST Spoke with Pat, the symptoms are getting better. He states he only vomited once because he drank the gatorade too quick. The stool is now loose, no longer liquid and he is feeling better. Discussed BRAT diet, bland, easily digestible foods, etc. No fever. If symptoms worsen or return, he will call back. * Brenda Parish - 03/23/2024 10:56 AM EST Pt called and LVM requesting a call back. He stated that he thinks he had the Neurovirus for the last few days. Vomiting and Diarrhea for hours and hours. He wants to know if he should make an appointment, if there is something he should be prescribed orif he should just ride it out ? Please call when able and he gave permission for a detailed VM if he does not pickle sorter. Thank you. documented in this encounter Plan of Treatment Upcoming Encounters Date Type Department Care Team (Late st Contact Info) Description 08/01/2024 1:00 PM EDT Office Visit [facility] [address] [place] [address] Sherman Miller MD [address] [facility], [address] [place] [address] [email or web address] documented as of this encounter Visit Diagnoses Not on filedocumented in this encounter Additional Health Concerns Assessment Noted Time PHQ-2 Depression Total Score: 0 02/25/20 23 2:54 PM EST documented as of this encounter Care Teams Hyster Machine Operator Relationship Specialty Start Date End Date Sherman Miller MD [address] [facility], [address] [place] [address] [email or web address] PCP - General Internal Medicine 05/15/18 Tate Moulton MD [address] [place] [address], [address] [place] [address] [email or web address] Urology 06/19/18 Tanisha Perkins MD [address] [place] [phone] [email or web address] Oncology 06/19/18 Harsh Ross MD [address] [address] Orthopedic Surgery 10/15/19 Suellen Mccann MD [address] [facility] [address] [place] [address] Gastroenterology 10/23/20 Chante Vizcaino MD [address] [place] [address] [email or web address] Cardiology 11/12/22 documented as of this encounter Additional Source Comments The information contained in this document represents components of the legal health record. It is not the complete legal health record.[facility]
--- OUTSIDE RECORDS SUMMARY | 2024-04-18 12:59 | XMS_ITS | Encounter Summary ---
Author Organization [facility] Address [phone] [facility] [place] [address] Care Team Providers Care Finished Cloth Checker Name Role Phone Sherman Miller MD Primary Care Provider [phone] Tate Moulton MD Unavailable Tanisha Perkins MD Unavailable [phone] Harsh Ross MD Unavailable [phone] Suellen Mccann MD Unavailable [phone] Chante Vizcaino MD Unavailable [phone] Encounter Details Date Type Department Care Team (Latest Contact Info) Description 04/05/2024 12:27 PM EST - 04/05/2024 11:59 PM EST Hospital Encounter [facility] [address] [place] [address] [place], [place] [phone] Sherman Miller MD [address] [place] [address], [address] [place] [address] [email or web address] Discharge Disposition: Home or Self [...] by mouth 2 (two) times a day. dapagliflozin propanediol (FARXIGA) 5 mg tablet Take 5 mg by mouth daily. 04/06/2024 sacubitril-valsartan 24-26 mg per tablet Take by mouth. 10/27/20222024 documented as of this encounter Plan of Treatment Upcoming Encounters Date Type Department Care Team (Late st Contact Info) Description 08/01/2024 1:00 PM EDT Office Visit [address] [address] Sherman Miller MD [address] [place] [address], [address] [place] [address] [email or web address] documented as of this encounter Procedures Procedure Name Priority Date/Time Associated Diagnosis Comments BASIC METABOLIC PANEL Routine 04/05/2024 1:32 PM EST Acute kidney injury documented in this encounter Results * (ABNORMAL) Basic metabolic panel (04/05/2024 1:32 PM EST) SODIUM 133 133 - 146 mmol/L [facility] CHLORIDE 100 96 - 108 mmol/L [facility] POTASSIUM 5.6(H) 3.3 - 5.1 mmol/L [facility] CO2 22 21 - 35 mmol/L [facility] BUN 74(H) 6 - 19 mg/dL [facility] CREATININE 4.40(H) 0.5 - 1.5 mg/dL [facility] GLUCOSE 83 70 - 99 mg/dL [facility] CALCIUM 8.0(L) 8.4 - 10.3 mg/dL [facility] EGFR 13(L) >59 mL/min/1.7 3m2 [facility] Comment:Estimated glomerular filtration rate calculated using the CKD-EPI refit equation. ANION GAP 17 10 - 20 mmol/L [facility] Blood 04/05/2024 1:32 PM EST 04/05/2024 1:40 PM EST Sherman Miller MD LAB BLOOD ORDERABL ES [facility] [address] [place] [address] documented in this encounter Visit Diagnoses Diagnosis Acute kidney injury documented in this encounter Additional Health Concerns Assessment Noted Time PHQ-2 Depression Total Score: 0 02/25/20 23 2:54 PM EST documented as of this encounter Care Teams Finished Cloth Checker Relationship Specialty Start Date End Date Sherman Miller MD [address] [place] [address], [address] [place] [address] [email or web address] PCP - General Internal Medicine 05/15/18 Tate Moulton MD [facility], [address] [place] [address] [email or web address] Urology 06/19/18 Tanisha Perkins MD [address] [place] [address] [email or web address] Oncology 06/19/18 Harsh Ross MD [address] [facility] [address] [place] [address] Orthopedic Surgery 10/15/19 Suellen Mccann MD [address] [facility] [address] [place] [address] Gastroenterology 10/23/20 Chante Vizcaino MD [address] [place] [address] [email or web address] Cardiology 11/12/22 documented as of this encounter Additional Source Comments The information contained in this document represents components of the legal health record. It is not the complete legal health record.[facility]
--- OUTSIDE RECORDS SUMMARY | 2024-04-18 13:00 | XMS_ITS | Encounter Summary ---
Author Organization [facility] Address [phone] [facility] [place] [address] Care Team Providers Care Principal Java Software Engineer Name Role Phone Sherman Miller MD Primary Care Provider [phone] Tate Moulton MD Unavailable Tanisha Perkins MD Unavailable [phone] Harsh Ross MD Unavailable Suellen Mccann MD Unavailable [phone] Chante Vizcaino MD Unavailable [phone] Reason for Visit * Reason Onset Date Comments Test Results 03/29/2024 After hours call Encounter Details Date Type Department Care Team (Late st Contact Info) Description 03/29/2024 Telephone [facility] [employer] [address] [address] Jess Rausch PA-C 2 [facility] [address] [place] [address] Test Results (After hours call) Social History Tobacco Use Types Packs/Day Years [...] as of this encounter Progress Notes * Jess Rausch PA-C - 03/29/2024 9:10 PM EST After Hours Call Note 03/29/2024 9:10 PM Caller: lab Chief complaint: critical potassium 6.4 HPI: Paged by lab reporting critical K 6.4. No evidence of hemolyzation per tech. Remaining labs including BMP, LFTs, Lipase are pending. Pt seen in office yesterday for h/o diarrhea x2 weeks. Plan: I called pt at home this evening. He continues to endorse intermittent abdominal cramping andloose stool but otherwise feels well. Denies muscle weakness, cramping, palpitations. Reviewed K of6.4. Pt states he is planning to travel out of state tomorrow morning to visit his grandchildren for the weekend. Given degree of hyperkalemia I advised him that this needs to be addressed prior to travel. [facility] and [facility]. Medications prescribed: none documented in this encounter Plan of Treatment Upcoming Encounters Date Type Department Care Team (Late st Contact Info) Description 08/01/2024 1:00 PM EDT Office Visit [facility] [address] [place] [address] Sherman Miller MD [address] [place] [address], [address] [place] [address] [email or web address] documented as of this encounter Visit Diagnoses Not on filedocumented in this encounter Additional Health Concerns Infection Onset Date Last Indicated Resolved Time CDiff-Risk 03/28/2024 03/28/2024 04/04/2024 1:22 AM EST Assessment Noted Time PHQ-2 Depression Total Score: 0 02/25/20 2:54 PM EST documented as of this encounter Care Teams Principal Java Software Engineer Relationship Specialty Start Date End Date Sherman Miller MD [address] [place] [address], [address] [place] [address] [email or web address] PCP - General Internal Medicine 05/15/18 Tate Moulton MD [address] [place] [address], [address] [place] [address] [email or web address] Urology 06/19/18 Tanisha Perkins MD [address] [place] [address] [email or web address] Oncology 06/19/18 Harsh Ross MD [address] [place] [address] Orthopedic Surgery 10/15/19 Suellen Mccann MD [address] [place] [address] Gastroenterology 10/23/20 Chante Vizcaino MD [address] [place] [phone] [email or web address] Cardiology 11/12/22 documented as of this encounter Additional Source Comments The information contained in this document represents components of the legal health record. It is not the complete legal health record.[facility]
--- OUTSIDE RECORDS SUMMARY | 2024-04-18 13:00 | XMS_ITS | Encounter Summary ---
Author Organization [facility] Address [phone] [place] [address] Care Team Providers Care Shoe Shanker Name Role Phone Sherman Miller MD Primary Care Provider [phone] Tate Moulton MD Unavailable Tanisha Perkins MD Unavailable [phone] Harsh Ross MD Unavailable Suellen Mccann MD Unavailable [phone] Chante Vizcaino MD Unavailable [phone] Reason for Visit * Reason Comments Diarrhea Encounter Details Date Type Department Care Team (Late st Contact Info) Description 03/28/2024 3:00 PM EST Office Visit [facility] Medicine [address] [place] [address] [place], [place] [id number] Ga Zapata NP [address] [facility], [address] [place] [address] [email or web address] Diarrhea, unspecified type (Primary Dx) Social History Tobacco Use Types [...] Sign Reading Time Taken Comments Blood Pressure 112/64 03/28/2024 3:04 PM EST Pulse 71 03/28/2024 3:04 PM EST Temperature 36.7 ??C (98.1 ??F) 03/28/2024 3:04 PM ES T Respiratory Rate - - Oxygen Saturation 96% 03/28/2024 3:04 PM EST Inhaled Oxygen Concentration - - Weight 62.1 kg (137 lb) 03/28/2024 3:04 PM EST Height 164.4 cm (5' 4.72 ) 03/28/2024 3:04 PM ES T Body Mass Index 23 03/28/2024 3:04 PM EST documented in this encounter Progress Notes * Ga Zapata NP - 03/28/2024 3:00 PM EST HPI: Pauline is a patient of Dr. Miller who presents for evaluation of diarrhea. Symptoms started 2 weeksago with significant fatigue, loose stool and abdominal cramping. He describes cramping discomfort in the upper abdomen which improves after having BM. Stool has been loose, mostly, but occasionally liquid. There has been no blood or mucus. He has hadbelching and flatus; no bloating. No heartburn. He is urinating normally. No h/o abdominal surgeries. He denies fever or chills or respiratory symptoms. He had a single episode of vomiting 2 days ago after quickly drinking electrolytes. 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 He checked his blood sugar at home a few times and it was, most recently, 98 fasting. Energy has improved slightly. No recent antibiotics. No close contacts who are ill. No recent travel except within [place] for [place]. He has tried to increase his intake of bread, oatmeal, bananas, rice. He has continued to have 4 cups of coffee/day. He does not drink alcohol. 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 He had a closer to formed stool yesterday morning; today it was loosely formed. He had [place] in October of 2022. He has polycythemia vera monitored through [facility] and has regular phlebotomy. Vitals: 03/28/24 1504 BP: 112/64 Pulse: 71 Temp: 36.7 ??C (98.1 ??F) SpO2: 96% Weight: 62.1 kg (137 lb) Height: 164.4 cm (5' 4.72 ) Patient Active Problem List Diagnosis Polycythemia vera BPH with obstruction/lower urinary tract symptoms Onychomycosis of toenail Right hand weakness Primary osteoarthritis of right knee Elevated serum creatinine Acne rosacea Atherosclerosis of [place] coronary artery of [place] heart without angina pectoris Ischemic cardiomyopathy Exam: General appearance: Alert, pleasant, in no acute distress. HEENT: NC/AT. EOMI. Conjunctiva clear. Tongue is slightly dry. Neck: Supple, no adenopathy. Lungs: Clear to auscultation throughout, no wheezes/rhonchi/rales, regular breathing rate and effort. Cardiac: Regular rate and rhythm, no murmurs. Abdomen: +BS x 4. Soft. No guarding. No masses or tenderness. No organomegaly. No rash on the abdomen. Musculoskeletal: Normal gait without assistive devices. Skin: No rash or worrisome skin lesions on exposed skin. Psychological: Affect is normal. Appropriate eye contact. Thought process and insight are normal. A/P: Assessment & Plan Diarrhea, unspecified type Two week history of loose to liquid stool with single episode of vomiting associated with rapid ingestion of water. Check labs today to evaluate for electrolyte/renal abnormalities from GI track losses. Given his work in the ER, check stool culture and c diff tests. Ensure adequate hydration. I asked him to eat a more bland diet, avoid large meals, fatty or acidicfoods, and to reduce caffeine intake. If work up is unremarkable and symptoms persist consider O&P testing, GI consult. Consider Immodium for a couple of days if c diff is negative. Orders: CBC and differential; Future Basic metabolic panel; Future LFTs (hepatic panel); Future Lipase; Future Stool culture; Future Clostridioides (Clostridium) difficile, PCR; Future documented in this encounter Plan of Treatment Upcoming Encounters Date Type Department Care Team (Late st Contact Info) Description 08/01/2024 1:00 PM EDT Office Visit [address] [place] [address] Sherman Miller MD [address] [place] [address], [address] [place], [place] [phone] [email or web address] Scheduled Orders Name Type Priority Associated Diagnoses Orde r Schedule Stool culture Microbiology Routine Diarrhea, unspecified type Expected: 03/28/2024, Expires: 03/28/2025 Clostridioides (Clostridium) difficile, PCR Microbiology Routine Diarrhea, unspecified type Expected: 03/28/2024, Expires: 03/28/2025 documented as of this encounter Results * Lipase (03/29/2024 3:51 PM EST) LIPASE 42 16 - 63 U/L [facility] Blood 03/29/2024 3:51 PM EST 03/29/2024 6:59 PM EST Ga Zapata NP LAB BLOOD ORDERABL ES [facility] [address] [place] [address] * (ABNORMAL) LFTs (hepatic panel) (03/29/2024 3:51 PM EST) ALKALINE PHOSPHATASE 146(H) 39 - 117 U/L [facility] TOTAL BILIRUBIN 0.4 0.0 - 1.2 mg/dL [facility] DIRECT BILIRUBIN <0.2 0 - 0.3 mg/dL [facility] Bilirubin (Indirect) NOT CALCULATED 0 - 1.5 mg/dL [facility] AST 15 0 - 37 U/L [facility] ALT 8 0 - 40 U/L [facility] TOTAL PROTEIN 6.3(L) 6.5 - 8.0 g/dL [facility] ALBUMIN 3.3(L) 3.9 - 4.8 g/dL [facility] GLOBULIN 3.0 1 - 4.8 g/dL [facility] A/G Ratio 1.10 1.00 - 4.80 RATIO [facility] Blood 03/29/2024 3:51 PM EST 03/29/2024 6:59 PM EST Ga Zapata NP LAB BLOOD ORDERABL ES Performing Organization Address City/State/[facility] Co de Phone Number [address] [address] * (ABNORMAL) Basic metabolic panel (03/29/2024 3:51 PM EST) SODIUM 136 133 - 146 mmol/L [facility] CHLORIDE 104 96 - 108 mmol/L [facility] POTASSIUM 6.4 3.3 - 5.1 mmol/L [facility] Comment: Critical value: Results called to and read back by: null CO2 17(L) 21 - 35 mmol/L [facility] BUN 76(H) 6 - 19 mg/dL [facility] CREATININE 5.00(H) 0.5 - 1.5 mg/dL [facility] GLUCOSE 73 70 - 99 mg/dL [facility] CALCIUM 7.9(L) 8.4 - 10.3 mg/dL [facility] EGFR 11(L) >59 mL/min/1.7 3m2 [facility] Comment:Estimated glomerular filtration rate calculated using the CKD-EPI refit equation. ANION GAP 21(H) 10 - 20 mmol/L [facility] Blood 03/29/2024 3:51 PM EST 03/29/2024 6:59 PM EST Ga Covarrubiasivonetran FOUND[facility] DIRECTOR LAB BLOOD ORDERABL ES [address] [address] * (ABNORMAL) CBC and differential (03/29/2024 3:51 PM EST) WBC 26.90(H) 4.00 - 11.00 K/uL [facility] RBC 8.72(H) 4.50 - 5.90 M/uL [facility] HGB 15.8 13.5 - 17.5 g/dL [facility] HCT 59.2(H) 41.0 - 53.0 % [facility] PLT 576(H) 150 - 450 K/uL [facility] MCV 67.9(L) 80.0 - 100.0 fL [facility] MCH 18.1(L) 27.0 - 31.0 pg [facility] MCHC 26.7(L) 32.0 - 36.0 g/dL [facility] RDW 22.3(H) 11.5 - 14.5 % [facility] MPV 10.2 8.4 - 12.0 fL [facility] NRBC 0.00 0.00 /100 WBCs [facility] ABSOLUTE NRBC 0.00 0.00 K/uL [facility] DIFF METHOD Auto [facility] NEUTS 87.2(H) 48.0 - 76.0 % [facility] LYMPHS 4.4(L) 18.0 - 41.0 % [facility] MONOS 3.6(L) 4.0 - 11.0 % [facility] EOS 3.7 0.0 - 5.0 % [facility] BASOS 0.4 0.0 - 1.5 % [facility] Granulocytes, immature (%) 0.7 0.0 - 0.9 % [facility] ABSOLUTE NEUTS 23.44(H) 1.92 - 7.60 K/uL [facility] ABSOLUTE LYMPHS 1.18 0.72 - 4.10 K/uL [facility] ABSOLUTE MONOS 0.96 0.16 - 1.10 K/uL [facility] ABSOLUTE EOS 1.00(H) 0.00 - 0.50 K/uL [facility] ABSOLUTE BASOS 0.12 0.00 - 0.15 K/uL [facility] Granulocytes, immature 0.20(H) 0.00 - 0.09 K/uL [facility] Blood 03/29/2024 3:51 PM EST 03/29/2024 6:59 PM EST Ga Zapata FOUNDATION DIRECTOR LAB BLOOD ORDERABL ES [facility] [address] [place] [address] documented in this encounter Visit Diagnoses Diagnosis Diarrhea, unspecified type- Primary documented in this encounter Additional Health Concerns Infection Onset Date Last Indicated Resolved Time CDiff-Risk 03/28/2024 03/28/2024 04/04/2024 1:22 AM EST Assessment Noted Time PHQ-2 Depression Total Score: 0 02/25/20 23 2:54 PM EST documented as of this encounter Care Teams Shoe Shanker Relationship Specialty Start Date End Date Sherman Miller MD [address] [place] [address], [address] [place] [address] [email or web address] PCP - General Internal Medicine 05/15/18 Tate Moulton MD [address] [place] [address], [address] [place] [address] [email or web address] [email or web address] 06/19/18 Tanisha Perkins MD [address] [place] [phone] [email or web address] Oncology 06/19/18 Harsh Ross MD [address] [place], [place] [address]max Viviane [facility] [email or web address] [address] [place] [address] Orthopedic Surgery 10/15/19 Suellen Mccann MD [facility] Salena Pan [address] [address] Gastroenterology 10/23/20 Chante Vizcaino MD [address] [place] [address] [email or web address] Cardiology 11/12/22 documented as of this encounter Additional Source Comments The information contained in this document represents components of the legal health record. It is not the complete legal health record.[facility]
--- OUTSIDE RECORDS SUMMARY | 2024-04-18 13:00 | XMS_ITS | Encounter Summary ---
Author Organization [facility] Address [phone] [place] [address] Care Team Providers Care Metallurgical Technician Name Role Phone Sherman Miller MD Primary Care Provider [phone] Tate Moulton MD Unavailable Tanisha Perkins MD Unavailable [phone] Harsh Ross MD Unavailable [phone] Suellen Mccann MD Unavailable [phone] Chante Vizcaino MD Unavailable [phone] Encounter Details Date Type Department Care Team (Late st Contact Info) Description 03/26/2024 Nurse Triage [address] [id number] Sherman Miller MD 22 [facility], [address] [place], [place] [phone] [email or web address] Social History Tobacco Use Types Packs/Day Years [...] Progress Notes * Anu Davis RN - 03/28/2024 11:28 AM EST Spoke with Pat, states he has had diarrhea for 2 weeks now. No nausea, vomiting or fever. He has cramping, bloating and a lot of gas. The stool is more loose than diarrhea. Scheduled to be seen todayat 3 p.m. * Judy Negron - 03/28/2024 11:11 AM EST Pt returning call again. He states he is able to come in at 3pm today and will wait by his phone for a return call. He apologizes for missing the calls. Central Support Aircraft Structural Repairer (Please do not reply to this user; this inbox is not monitored.) Thank you. * Anu Davis RN - 03/28/2024 9:11 AM EST Attempted to reach, no answer, lvm for call back with best time to reach Judy Hodges - 03/28/2024 8:47 AM EST Pt returned call. He states he is now available to speak with. Please return call at [phone]. Central Support Aircraft Structural Repairer (Please do not reply to this user; this inbox is not monitored.) Thank you. * Candace Stafford RN - 03/28/2024 8:33 AM EST Attempted to reach patient. LVM to return call for triage. * Judy Negron - 03/27/2024 12:34 PM EST Pt states he just missed a call from the office. Please return call at [phone]. Central Support Aircraft Structural Repairer (Please do not reply to this user; this inbox is not monitored.) Thank you. * Nathan Sosa - 03/27/2024 10:33 AM EST Pt called in, he would like an OV today or tomorrow, please contact and advise. Central Support Aircraft Structural Repairer (Please do not reply to this user; this inbox is not monitored.) Thank you. documented in this encounter Plan of Treatment Upcoming Encounters Date Type Department Care Team (Late st Contact Info) Description 08/01/2024 1:00 PM EDT Office Visit [facility] [address] [place] [address] Sherman Miller MD [address] [place] [address], [address] [place] [address] [email or web address] documented as of this encounter Visit Diagnoses Not on filedocumented in this encounter Additional Health Concerns Assessment Noted Time PHQ-2 Depression Total Score: 0 1221/20 23 2:54 PM EST documented as of this encounter Care Teams Metallurgical Technician Relationship Specialty Start Date End Date Sherman Miller MD [address] [place] [address], [address] [place] [address] [email or web address] PCP - General Internal Medicine 05/15/18 Tate Moulton MD [address] [place] [address], [address] [place] [address] [email or web address] Urology 06/19/18 Tanisha Perkins MD [address] [place] [address] [email or web address] Oncology 06/19/18 Harsh Ross MD [address] [place] [address] Orthopedic Surgery 10/15/19 Suellen Mccann MD [address] [place] [address] Gastroenterology 10/23/20 Chante Vizcaino MD [address] [place] [address] [email or web address] Cardiology 11/12/22 documented as of this encounter Additional Source Comments The information contained in this document represents components of the legal health record. It is not the complete legal health record.[facility]
--- OUTSIDE RECORDS SUMMARY | 2024-04-18 13:00 | XMS_ITS | Clinical Summary ---
Author Organization [facility] Address [address] [place] [address] Phone Care Team Providers Care Forensic Sergeant Name Role Phone Sherman Miller MD Primary Care Provider [phone] Medications finasteride (PROSCAR) 5 mg tablet Take 5 mg by mouth daily. Active tamsulosin (FLOMAX) 0.4 mg 24 hr capsule Take 0.4 mg by mouth daily. Take 30 mins after same meal every day. Active multivitamin (Multiple Vitamins) tablet Take 1 Tab by mouth daily. Active Vitamin-B complex split tablet Take 1 Tab by mouth daily. Active ascorbic acid, vitamin C, 500 mg capsule Take 1 tablet by mouth 1 (one) time each day. Active cholecalciferol (VITAMIN D-3) 25 mcg (1,000 unit) tablet Take 1 tablet (1,000 Units total) by mouth 1 (one) time each day. Active ed0-xab-yam-cod liver-vit A-D3 240-1,000 mg capsule Take 1 Cap by mouth daily. Active magnesium 200 mg tablet Take 1 Tab by mouth daily. Active aspirin 81 mg EC tablet Take 81 mg by mouth daily. Active polyethylene glycol (GoLYTELY) 236-22.74-6.74 -5.86 gram solution Take 4,000 mL by mouth once for 1 dose. Drink half of solution, and rest 4 hours then complete the remaning. 09/27/2018 Active Immunizations Name Administration Dates Next Due Moderna SARS-CoV-2 COVID-19, mRNA, LNP-S, preservative free 04/16/2020,03/19/2020 Surgical History Surgery Date Site/Laterality Comments ANGIOPLASTY PROCEDURE:ANGIOPLASTY Medical History Medical History Date Comments Heart attack (CMS/HCC) DX:Heart attack (HCC) Social History Tobacco Use Types Packs/Day Years Used Date Smoking Tobacco: Never Assessed Sex and Gender Information Value Date Recorded Sex Assigned at Not on file Legal Sex Male 10:42 PM EST Gender Identity Not on file Sexual Orientation Not on file Obstetrics History Last Filed Vital Signs Vital Sign Reading Time Taken Comments Blood Pressure 124/67 01/26/2023 10:03 AM EST Sitting Right arm Pulse 67 01/26/2023 10:03 AM EST Temperature - - Respiratory Rate - - Oxygen Saturation - - Inhaled Oxygen Concentration - - Weight 63.8 kg (140 lb 9.6 oz) 01/26/2023 10:03 AM EST Height - - Body Mass Index - - Plan of Treatment Health Maintenance Due Date Last Done Comments DTaP,Tdap,and Td Vaccines (1 - Tdap) 05/26/1967 Pneumococcal Vaccine: 50+ Years (1 of 2 - PCV) 05/26/1967 Zoster Vaccines (1 of 2) 05/26/1967 COVID-19 Vaccine (3 - Modern a risk series) 05/14/2020 04/16/2020, 03/19/2020 Abdominal Aortic Aneurysm (AAA) Screen 02/07/2022 Cholesterol Screening (Lipid Panel) 02/07/2022 Colorectal Cancer Screening: Colonoscopy 02/07/2022 Depression Screening 02/07/2022 Falls Risk Assessment 02/07/2022 Hepatitis C Screening 02/07/2022 Social Influencers of Health Screening 02/07/2022 RSV Immunization Patients 60 + Years Old (1 - 1-dose 75+ series) 05/26/2023 Influenza Vaccine (#1) 2023 HIB Vaccines Aged Out No longer eligi ble based on patient's age to complete this topic HPV Vaccines Aged Out No longer eligi ble based on patient's age to complete this topic Hepatitis A Vaccines Aged Out No long er eligible based on patient's age to complete this topic Hepatitis B Vaccines Aged Out No long er eligible based on patient's age to complete this topic IPV Vaccines Aged Out No longer eligi ble based on patient's age to complete this topic MMR Vaccines Aged Out No longer eligi ble based on patient's age to complete this topic Meningococcal ACWY Vaccine Aged Out N o longer eligible based on patient's age to complete this topic Meningococcal B Vacine Aged Out No lo nger eligible based on patient's age to complete this topic RSV Immunization Patients Under 20 months Aged Out No longer eligible b ased on patient's age to complete this topic Varicella Vaccines Aged Out No longer eligible based on patient's age to complete this topic Insurance [facility] Care Teams Forensic Sergeant Relationship Specialty Start Date End Date Sherman Miller MD [address] [place] [address] PCP - General Pediatrics 09/19/18
--- OUTSIDE RECORDS SUMMARY | 2024-04-18 13:00 | XMS_ITS | Encounter Summary ---
Author Organization [facility] Address [phone] [facility] [place] [address] Care Team Providers Care Contract Programmer Name Role Phone Sherman Miller MD Primary Care Provider [phone] Tate Moulton MD Unavailable Tanisha Perkins MD Unavailable [phone] Harsh Ross MD Unavailable Suellen Mccann MD Unavailable [phone] Chante Vizcaino MD Unavailable [phone] Reason for Visit * Reason Onset Date Comments Results 03/30/2024 Needs ED eval 03/30/2024 Encounter Details Date Type Department Care Team (Late st Contact Info) Description 03/30/2024 Telephone [facility] [address] [place] [id number] Candace Stafford, RN [address] [place] [address] [email or web address] Results; Needs ED eval Social History Tobacco Use Types Packs/Day Years [...] as of this encounter Progress Notes * Ga Zapata NP - 03/30/2024 2:27 PM EST Chart reviewed. K 5.1 in the ER at [facility]. He was admitted. K today 5.6. Consulted with Dr. Gayle MAIN. Creatinine 4.00 today. * Candace Stafford RN - 03/30/2024 8:03 AM EST Spoke with (on reg and consent). Pat did go to the [facility] ED last night. They took a blood test and said his potassium was not that high but his creatinine was. They have hydrated him and were going to repeat his labs. She does not know the results as she went home to rest. They told her they think his kidneys are failing. She will call in with updates. * Candace Stafford RN - 03/30/2024 7:34 AM EST Images from the original note were not included. Attempted to reach patient at both phone numbers. Left message to return call as he needs to be evaluated in ED based on lab results. Message Received: Today Ga Zapata, DISTRICT MEDICAL EXAMINER P [facility] Rn Please call Pat. Creatinine maximus to 5.00, BUN 76, GFR 11, K 6.4. Results were conveyed to secondary special education teacher provider last night and they recommended ER evaluation. He works at [employer] and polycythemia is managed there and he may have gone there. Please check on him this morning. I do NOT recommend travel. eed documented in this encounter Plan of Treatment Upcoming Encounters Date Type Department Care Team (Late st Contact Info) Description 08/01/2024 1:00 PM EDT Office Visit [address] [place] [address] Sherman Miller MD [address] [place] [address], [address] [place] [address] [email or web address] documented as of this encounter Visit Diagnoses Not on filedocumented in this encounter Additional Health Concerns Infection Onset Date Last Indicated Resolved Time CDiff-Risk 03/28/2024 03/28/2024 04/04/2024 1:22 AM EST Assessment Noted Time PHQ-2 Depression Total Score: 0 02/25/20 23 2:54 PM EST documented as of this encounter Care Teams Contract Programmer Relationship Specialty Start Date End Date Sherman Miller MD [address] [place] [address], [address] [place] [address] PCP - General Internal Medicine 05/15/18 Tate Moulton MD [address] [place] [address], [address] [place] [address] [email or web address] 06/19/18 Tanisha Perkins MD [address] [place] [address] [email or web address] Oncology 06/19/18 Harsh Ross MD [facility] [address] [address] Orthopedic Surgery 10/15/19 Su[facility]ccann MD [facility] [address] [address] Gastroenterology 10/23/20 Chante Vizcaino MD [address] [place] [address] Cardiology 11/12/22 documented as of this encounter Additional Source Comments The information contained in this document represents components of the legal health record. It is not the complete legal health record.[facility]
--- OUTSIDE RECORDS SUMMARY | 2024-04-18 13:01 | XMS_ITS | Encounter Summary ---
Author Organization [employer] Address [address] [place] [address] Care Team Providers Care Dynamicist Name Role Phone Sherman Miller MD Primary Care Provider [phone]- [phone] Encounter Details Date Type Department Care Team (Late st Contact Info) Description 01/09/2024 Telephone [facility] Hematology Oncology [address] [place] [address] Tanisha Perkins MD [address] [place] [address] Social History Tobacco Use Types Packs/Day Years Used Date Smoking Tobacco: Never Assessed Sex and Gender Information Value Date Recorded Sex Assigned at Not on file Legal Sex Male 10:42 PM EST Gender Identity Not on file Sexual Orientation Not on file documented as of this encounter Progress Notes * Hafsa Ahumada MA - 04/11/2024 11:59 AM EST I called and spoke with Lizeth at [facility]. I advised her to please cancel future phlebotomy orders until patient is seen by [facility]/. She is going to note patients chart. * Tanisha Perkins MD - 04/11/2024 9:44 AM EST Please send an order to [facility], canceled ongoing phlebotomy order. Patient was supposedto be seen in the office for an appointment and canceled it. No further phlebotomy orders unless patient is seen in clinic please let them know * Hafsa Ahumada MA - 01/13/2024 1:28 PM EST Phlebotomy order faxed to [facility]. I called patient to let him know and confirmed his follow up appointment with next month. * Jana Becerra - 01/09/2024 4:18 PM EST Patient states its ok to wait until Tuesday when returns * Gretchen Amaro - 01/09/2024 4:14 PM EST Pt states he just missed a call from someone and immediately called back. States he will check to see if a voicemail was left with a name * Jana Becerra - 01/09/2024 2:21 PM EST Patient requesting a new phlebotomy order to [facility] documented in this encounter Plan of Treatment Not on file documented as of this encounter Visit Diagnoses Not on filedocumented in this encounter Care Teams Dynamicist Relationship Specialty Start Date End Date Sherman Miller MD [address] [place] [address] PCP - General Pediatrics 09/19/18 documented as of this encounter
--- OUTSIDE RECORDS SUMMARY | 2024-04-18 13:01 | XMS_ITS | Clinical Summary ---
Author Organization [employer] Address [address] [place] [address] [address] [place] [address] Care Team Providers Care Airfield Manager Name Role Phone Sherman Miller MD Primary Care Provider [phone]- [phone] Allergies No known active allergies Medications Aspirin 81 MG capsule Take 81 mg by mouth. 3 Active ascorbic acid (Vitamin C) 500 MG tablet 1 tablet in the morning and 1 tablet in the evening. Active atorvastatin (Lipitor) 80 MG tablet Take 80 mg by mouth Once per day. Active biotin 5000 MCG capsule 1 capsule in the morning. Active cholecalciferol (Vitamin D-[address]) 25 MCG (1000 UT) tablet Take 1,000 Units by mouth Once per day. Active clopidogrel (Plavix) 75 MG tablet Take 1 tablet by mouth Once per day. 4 Active Cod Liver Oil w/Vit A & D capsule Take 1 Cap by mouth daily. Active Farxiga 5 MG Take 5 mg by mouth Once per day. Active finasteride (Proscar) 5 MG tablet Take 5 mg by mouth Once per day. 1 Active MAGNESIUM PO Take 1 tablet by mouth Once per day. Active metoprolol succinate XL (Toprol-XL) 25 MG 24 hr tablet Take 25 mg by mouth Once per day. Active metroNIDAZOLE (Metrocream) 0.75 % cream Apply topically 2 times daily. 3 Active Multiple Vitamins tablet Take 1 tablet by mouth Once per day. Active Entresto 24-26 MG tablet Take 1 tablet by mouth 2 times daily. Active tamsulosin (Flomax) 0.4 MG 24 hr capsule Take 0.4 mg by mouth daily. Take 30 mins after same meal every day. 1 Active Brilinta 90 MG tablet Take 90 mg by mouth 2 times daily. Active azelastine (Optivar) 0.05 % ophthalmic solution Administer 1 drop into both eyes 2 times daily. 6 mL 3 5 03/08/19 26 Active Active Problems Problem Noted Date Diagnosed Date Asthma 03/08/2024 Ischemic cardiomyopathy 12/02/2022 Overview (03/08/2024): After MRI in 2022. Initial LVEF 30 to 35%. Repeat echocardiogram February 2023, LVEF 40 to 45%. 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 Polycythemia vera 06/19/2018 Overview (03/08/2024): Therapeutic phlebotomies at [facility] Encounters Date Type Department Care Team Description 03/08/2024 2:00 PM EST Office Visit [facility] [address] [place] [address] Sara Odell OD Blepharoconjunctivitis of both eyes, unspecified blepharoconjunctivitis type (Primary Dx) 03/07/2024 Travel 02/21/2024 Telephone [facility] [address] [place], [place] [id number] Cassandra Nicole from Last 3 Months Social History Tobacco Use Types Packs/Day Years Used Date Smoking Tobacco: Never Tobacco Cessation:Counseling Given: Not Answered Sex and Gender Information Value Date Recorded Sex Assigned at Male 11/28/2023 12:40 PM EDT Legal Sex Male 8:32 PM EDT Gender Identity Male 11/28/2023 12:40 PM EDT Sexual Orientation Straight 11/28/2023 12 :40 PM EDT Plan of Treatment Health Maintenance Due Date Last Done Comments CT Colonography 1948 Colonoscopy 1948 Colorectal Cancer Screening 1948 Depression Screening 1948 FIT DNA/Cologuard 1948 FIT 1948 FOBT 1948 Lipid Panel 1948 SDOH Screening 1948 Sigmoidoscopy 1948 Alcohol/Substance Use Screening 1960 Hepatitis C Screening 1966 Zoster Vaccines (1 of 2) 1998 DTaP/Tdap/Td Vaccines (1 - Tdap) 03/04/2006 03/03/2006 RSV Patients and Patients Aged 60 years or older (1 - 1-dose 75+ series) 05/26/2023 COVID-19 Vaccine ( season) 2023 12/17/2022, 01/05/2022, 02/02/2021, Additional history exists Tobacco Screening 03/08/2025 03/08/2024 Pneumococcal Vaccine: 50+ Years Completed 01/13/2023, 01/05/2017, 12/27/2015, Additional history exists Influenza Vaccine Completed 12/08/2023, , 12/22/2021, Additional history exists HIB Vaccines Aged Out No longer eligi [...] patient's age to complete this topic Meningococcal Vaccine Aged Out No daya jericho eligible based on patient's age to complete this topic RSV under 20 months Aged Out No longe r eligible based on patient's age to complete this topic Rotavirus Vaccines Aged Out No longer eligible based on patient's age to complete this [place] [address] [place] [address] [employer] [place] Atten: SUE Rob [id number] [employer] PREFERRED PRIME MEDICARE [place] [employer]REFERRED PRIME [facility] [employer] [place] Care Teams Airfield Manager Relationship Specialty Start Date End Date Sherman Miller MD [address] [place] [address], [address] [place] [address] PCP - General Internal Medicine 12/29/23
== END 2024-04-18 12:25 | disposition home or self-care (01) ==
PROVIDERS: PCP Internal Medicine; Referring Provider Internal Medicine; Visit Provider Internal Medicine Nephrology
DX: N17.9 Acute kidney failure, unspecified (principal); N18.31 Chronic kidney disease, stage 3a
CPT/HCPCS: 99204

== ENCOUNTER → 2024-04-18 11:07 | Outpatient (BNVA) | payer MEDICARE, SELFPAY | PROVIDERS: PCP Internal Medicine; Referring Provider Internal Medicine; Visit Provider Internal Medicine Nephrology | DX: N17.9 Acute kidney failure, unspecified (principal); N18.31 Chronic kidney disease, stage 3a | CPT/HCPCS: 99202 ==

== ENCOUNTER 2024-05-02 12:14 | Outpatient (REF) | payer MEDICARE, SELFPAY ==
[2024-05-02 14:01] LABS: Prothrombin Time 11.9 SEC (10.9-12.4)
[2024-05-02 14:41] LABS: Anion Gap 16 (12-20)
[2024-05-02 14:50] LABS: Blood Urea Nitrogen 69 mg/dL (9-16); Calcium 8.5 mg/dL (8.4-10.2); Carbon Dioxide 16 mmol/L (22-29); Chloride 113 mmol/L (96-108); Estimated Glomerular Filt Rate 13; Phosphorus 4.9 mg/dL (2.7-4.5); Potassium 6.2 mmol/L (3.3-5.1); Sodium 139 mmol/L (135-145)
[2024-05-02 15:07] LABS: Total Protein Urine Random 376 mg/dL (<12)
--- OUTSIDE RECORDS SUMMARY | 2024-05-02 15:10 | XMS_ITS | Encounter Summary ---
Author Organization [facility] Address [phone] [facility] [place] [address] Care Team Providers Care Lending Advisor Name Role Phone Sherman Miller MD Primary Care Provider [phone]- [phone] Tate Moulton MD Unavailable Tanisha Perkins MD Unavailable [phone] Harsh Ross MD Unavailable Suellen Mccann MD Unavailable [phone] Chante Vizcaino MD Unavailable [phone] Reason for Visit * Reason Onset Date Comments Referral 04/11/2024 Encounter Details Date Type Department Care Team (Late st Contact Info) Description 04/11/2024 Telephone [facility] Medicine [address] [place] [address] [place] [address] Sherman Miller MD [address] [facility], [address] [place] [address] [email or web address] Referral Social History Tobacco Use Types Packs/Day [...] Lissette Viera - 04/11/2024 2:25 PM EST [facility] Top Smart Phrases: Referral Request Caller stated this is urgent and if an insurance authorization is not received the pt will have to be rescheduled. 1. Name of the office where the patient has been seen/requests to be seen: [facility] 2. Reason for referral/specialist appointment and the [...] referral authorization (enter n/a if not available): [id number] 6. Number of visits requested for referral: 6 7. Fax number of specialist office to send referral authorization: [phone] Central Support Digital Archivist (Please do not reply to this user; this inbox is not monitored.) Thank you. documented in this encounter Plan of Treatment Upcoming Encounters Date Type Department Care Team (Late st Contact Info) Description 08/01/2024 1:00 PM EDT Office Visit [address] [address] Sherman Miller MD [address] [place] [address], [address] [place] [address] [email or web address] documented as of this encounter Visit Diagnoses Not on filedocumented in this encounter Additional Health Concerns Assessment Noted Time PHQ-2 Depression Total Score: 0 02/25/20 23 2:54 PM EST documented as of this encounter Care Teams Lending Advisor Relationship Specialty Start Date End Date Sherman Miller MD [address] [place] [address], [address] [place] [address] [email or web address] PCP - General Internal Medicine 05/15/18 Tate Moulton MD [address] [place] [address], [address] [place] [address] [email or web address] Urology 06/19/18 Tanisha Perkins MD [address] [place] [address] [email or web address] Oncology 06/19/18 Harsh Ross MD [facility] [address] [address] Orthopedic Surgery 10/15/19 Suellen Mccann MD [address] [facility] [address] [place] [address] Gastroenterology 10/23/20 Chante Vizcaino MD [address] [place] [address] [email or web address] Cardiology 11/12/22 documented as of this encounter Additional Source Comments The information contained in this document represents components of the legal health record. It is not the complete legal health record.[facility]
--- OUTSIDE RECORDS SUMMARY | 2024-05-02 15:10 | XMS_ITS | Encounter Summary ---
Author Organization [facility] Address [phone] [place] [address] Care Team Providers Care Exchange Consultant Name Role Phone Sherman Miller MD Primary Care Provider [phone] Tate Moulton MD Unavailable Tanisha Perkins MD Unavailable [phone] Harsh Ross MD Unavailable Suellen Mccann MD Unavailable [phone] Chante Vizcaino MD Unavailable [phone] Reason for Visit * Reason Comments ER Encounter Details Date Type Department Care Team (Late st Contact Info) Description 04/10/2024 11:30 AM EST Office Visit [facility] Medicine [address] [place] [address] [place] [address] Sherman Miller MD [address] [facility], [address] [place] [address] [email or web address] Acute kidney injury (Primary Dx); [...] is voiding normally. BPH: Ultrasound in the [facility] emergency department showed a PVR 500 cc, [...] injury 10/23/2020 Ischemic cardiomyopathy 02/22/2023 Atherosclerosis of [place] coronary artery of [place] heart without angina pectoris 11/12/2022 Acne rosacea [...] 10/21/2022 LAD , [address], Dr Vizcaino, [facility] ROTATOR CUFF REPAIR Right 2012 ROTATOR CUFF REPAIR Left 2008 (Not in a hospital admission) No Known Allergies Social History Tobacco Use Smoking status: Never Smokeless tobacco: Never Substance Use Topics Alcohol use: Yes Comment: occ Family History Problem Relation Age of Onset Aneurysm Mother Colon cancer Father No Known Problems Daughter teacher for [employer] No Known Problems Daughter teacher, [employer] No Known Problems Son IT for [employer] Review of Systems Review of Systems Vitals: [...] Description 08/01/2024 1:00 PM EDT Office Visit [facility] Medicine [address] [place] [address] [place] [address] Sherman Miller MD [address] [place] [address], [address] [place] [address] [email or web address] documented as of this encounter Results * (ABNORMAL) Basic metabolic panel (04/10/2024 12:14 PM EST) SODIUM 137 133 - 146 mmol/L [facility] CHLORIDE 105 96 - 108 mmol/L [facility] POTASSIUM 5.7(H) 3.3 - 5.1 mmol/L [facility] CO2 18(L) 21 - 35 mmol/L [facility] BUN 76(H) 6 - 19 mg/dL [facility] CREATININE 4.30(H) 0.5 - 1.5 mg/dL [facility] GLUCOSE 85 70 - 99 mg/dL [facility] CALCIUM 8.0(L) 8.4 - 10.3 mg/dL [facility] EGFR 14(L) >59 mL/min/1.7 3m2 [facility] Comment:Estimated glomerular filtration rate calculated using the CKD-EPI refit equation. ANION GAP 20 10 - 20 mmol/L [facility] Blood 04/10/2024 12:1 4 PM EST 04/10/2024 12:25 PM EST Sherman Miller MD LAB BLOOD ORDERABL ES Performing Organization Address City/State/[facility] Co de Phone Number [facility] [address] [place] [address] documented in this encounter Visit Diagnoses Diagnosis Acute kidney injury- Primary BPH with obstruction/lower urinary tract symptoms Ischemic cardiomyopathy Other specified forms of chronic ischemic heart disease Polycythemia vera documented in this encounter Additional Health Concerns Assessment Noted Time PHQ-2 Depression Total Score: 0 02/25/20 23 2:54 PM EST documented as of this encounter Care Teams Exchange Consultant Relationship Specialty Start Date End Date Sherman Miller MD [address] [place] [address], [address] [place] [address] [email or web address] PCP - General Internal Medicine 05/15/18 Tate Moulton MD [address] [place] [address], [address] [place] [address] [email or web address] 06/19/18 Tanisha Perkins MD [address] [place] [address] [email or web address] Oncology 06/19/18 Harsh Ross MD [address] [address] Orthopedic Surgery 10/15/19 Suellen Mccann MD [address] [facility] [address] [place] [address] Gastroenterology 10/23/20 Chante Vizcaino MD [address] [place] [address] Cardiology 11/12/22 documented as of this encounter Additional Source Comments The information contained in this document represents components of the legal health record. It is not the complete legal health record.[facility]
--- OUTSIDE RECORDS SUMMARY | 2024-05-02 15:10 | XMS_ITS | Clinical Summary ---
Author Organization [facility] Address [phone] [facility] [place] [address] Care Team Providers Care Buffer Inflated Pad Name Role Phone Sherman Miller MD Primary Care Provider [phone] Tate Moulton MD Unavailable Tanisha Perkins MD Unavailable [phone] Harsh Ross MD Unavailable [phone] Suellen Mccann MD Unavailable [phone] Chante Vizcaino MD Unavailable [phone] Allergies No known active allergies Medications Medication Sig Dispensed Refills Start Date End Date Status finasteride (PROSCAR) 5 mg tablet Take 5 mg by mouth daily. Active tamsulosin (FLOMAX) 0.4 mg Cap Take 0.4 mg by mouth 2 (two) times a day. Active BRILINTA 90 mg Tab Take 1 tablet by mouth 2 (two) times a day. 10/27/2022 Active atorvastatin (LIPITOR) 80 MG tablet Take 80 mg by mouth. 10/27/2022 Active aspirin 81 MG EC tablet Take 81 mg by mouth. 10/27/2022 Active nitroglycerin (NITROSTAT) 0.[address] 0.4 mg under the tongue. 10/27/2022 Active metoprolol succinate (TOPROL-XL) 25 MG 24 hr tablet Take 25 mg by mouth. 10/27/2022 Active cholecalciferol (VITAMIN D3) 25 MCG (1,000 unit) tablet Take 1,000 Units by mouth daily. Active ascorbic acid, vitamin C, (VITAMIN C) 500 MG tablet Take 500 mg by mouth daily. Active sacubitril-valsarta n 24-26 mg per tablet Take by mouth. 10/27/2022 04/06/2024 Discontinued( Side Effects) dapagliflozin propanediol (FARXIGA) 5 mg tablet Take 5 mg by mouth daily. 04/06/2024 Discontinued( Side Effects) Active Problems Problem Noted Date Diagnosed Date History of nephritis 04/16/2024 Overview (04/16/2024): Treated with steroids when he was 12 years old Ischemic cardiomyopathy 02/22/2023 Overview (02/22/2023): After MRI in 2022. Initial LVEF 30 to 35%. Repeat echocardiogram February 2023, LVEF 40 to 45%. Assessment & Plan (04/10/2024 12:03 PM EST): Symptom martin he is doing well since [...] I will leave this up to cardiology. Atherosclerosis of [place] co ronary artery of [place] heart without angina pectoris 11/12/2022 Overview (11/12/2022): Non-ST elevation DE October 2022, 2 drug-eluting stents to the LAD Assessment & Plan (02/25/2023 10:31 AM EST): Clinically is doing very well. Will check labs today. LDL goal is less than 70. If not at goal we will discuss changing therapy. Continue cardiac rehab. Assessment & Plan (11/12/2022 9:13 AM EDT): Clinically is doing well. He has no anginal or heart failure symptoms. He is tolerating medication well. He is going to start cardiac rehab later this month. I reminded him to get a flu vaccine and COVID booster next month. He will follow- up as planned with cardiology for repeat echocardiogram later this year, and a follow- up with me as scheduled in February. The importance of taking his current medications consistently was reviewed. If he has any abnormal bleeding he should not stop his medication will contact cardiology or our office immediately. Acne rosacea 02/24/2022 Assessment & Plan (02/24/2022 10:46 AM EST): Start metronidazole cream, if not effective he may need a topical steroid Primary osteoarthritis of right knee 10/23/2020 Assessment & Plan (10/23/2020 3:44 PM EDT): Symptoms are mild and likely being exacerbated by playing softball. He can continue using CBD Gummies but I prefer that he try some exercises to see if he can alleviate his pain and reduce the need for medication. Acute kidney injury 10/23/2020 Assessment & Plan (04/10/2024 12:04 PM EST): Probably multifactorial. We should see a significant [...] possibly surgery if his PVR remains high. Onychomycosis of toenail 10/15/2019 Assessment & Plan (02/24/2022 10:46 AM EST): Patient is managing with podiatry Right hand weakness 10/15/2019 Overview (02/24/2022): After right shoulder injury and ulnar nerve September 2019, being evaluated by Dr. Ross. Assessment & Plan (02/24/2022 10:46 AM EST): Gradually getting better but still has some mild weakness. No further intervention needed at this time. Assessment & Plan (02/25/2020 11:54 AM EST): From what he described it sounds like he has a nerve compression. He will follow-up as scheduled with [facility]. Polycythemia vera 06/19/2018 Overview (02/25/2023): Therapeutic phlebotomies at [facility] Assessment & Plan (04/10/2024 12:02 PM EST): Hemoglobin has gone up a little bit. He will follow-up as planned with hematology next month. He is likely going to be due for another phlebotomy. Assessment & Plan (02/25/2023 10:32 AM EST): Doing well, next due to have CBC checked at [facility] in about 6 weeks. Assessment & Plan (02/24/2022 10:45 AM EST): Clinically is doing well. Follow-up as planned with hematology Assessment & Plan (10/23/2020 3:44 PM EDT): Clinically is doing well. Check CBC and copy to his glass novelty maker. Goal is to maintain hemoglobin less than 16. Assessment & Plan (02/25/2020 11:53 AM EST): Well-controlled, he will check his CBC later this month and follow-up as scheduled with hematology. Assessment & Plan (10/15/2019 10:34 AM EDT): Clinically is doing well. Check CBC. Follow-up as scheduled with hematology. Assessment & Plan (06/19/2018 2:04 PM EDT): By patient's history it sounds like he is doing well. Follow-up as scheduled with Dr. De La Fuente. Asked the patient have any labs he has done sent to me as well. BPH with obstruction/lower urinary tract symptom s 06/19/2018 Assessment & Plan (02/25/2023 10:31 AM EST): Well-controlled with current medication. Assessment & Plan (02/24/2022 10:45 AM EST): Clinically doing well, continue current medication and follow-up as planned with urology Assessment & Plan (10/23/2020 3:44 PM EDT): Doing well with his current medication. Check PSA on follow-up as planned with urology. Assessment & Plan (02/25/2020 11:53 AM EST): Well-controlled, continue current medication. Assessment & Plan (10/15/2019 10:34 AM EDT): Well-controlled, continue current medication. Assessment & Plan (06/19/2018 2:06 PM EDT): Doing well since started on medication. He has follow-up scheduled with Dr. Moulton later this year. Resolved Problems Problem Noted Date Diagnosed Date Resolved Date Onychomycosis 11/13/2019 10/23/2020 Essential hypertension 06/19/201809/25 Assessment & Plan (06/19/2018 2:05 PM EDT): Blood pressure does not sound like it was consistently high in the past. He has been on the lower side and mildly symptomatic. He would like to try stopping his medication which I think is reasonable. I asked him to check his blood pressure twice a week with a goal of keeping his blood pressure on average less than 140/90. Is running higher than that he will let me know and we can start him on lisinopril 2.5 mg and see if that helps find a better balance. Encounters Date Type Department Care Team Description 04/11/[address] [place] [address] Sherman Miller MD Referral 04/10/2024 12:01 PM EST - 04/10/2024 11:59 PM EST Hospital Encounter [facility] [address] [place] [address] [place] [address] Sherman Miller MD Discharge Disposition: Home or Self Care 04/10/2024 11:30 AM EST Office Visit [facility] [address] [place] [address] Sherman Miller MD Acute kidney injury (Primary Dx); BPH with obstruction/lower urinary tract symptoms; Ischemic cardiomyopathy; Polycythemia vera 04/06/2024 Orders Only [address] [place] [address] Sherman Miller MD Acute kidney injury (Primary Dx) 04/06/[address] [place] [address] Sherman Miller MD Triage (Yellow - High Potassium) 04/05/2024 12:27 PM EST - 04/05/2024 11:59 PM EST Hospital Encounter [facility] [address] [place] [address] [place] [address] Sherman Miller MD Discharge Disposition: Home or Self Care 04/02/[address] [address] Sherman Miller MD Referral (Kidney home care music therapist ); question 03/30/[address] [place] [address] Candace Stafford, VARSHA Results; Needs ED eval 03/29/2024 3:32 PM EST - 03/29/2024 11:59 PM EST Hospital Encounter [facility] [address] [place] [address] [place] [address] Ga Zapata NP Discharge Disposition: Home or Self Care 03/29/[address] [facility] [address] [place] [address] Jess Rausch PA-C Test Results (After hours call) 03/28/2024 3:00 PM EST Office Visit [address] [place] [id number] Ga Zapata NP Diarrhea, unspecified type (Primary Dx) 03/26/2024 Nurse Triage [address] [place] [address] Sherman Miller MD 03/23/[address] [place] [address] Sherman Miller MD [employer]? 02/23/2024 Orders Only [address] [place] [id number] Provider, MD Eduardo from Last 3 Months Immunizations Name Administration Dates Next Due COVID-19 (Pre-12/27) Moderna Vaccine, mRNA, PF 0 04/16/2020,03/19/2020 Influenza High-Dose Quadrivalent Preservative Fr ee IM 12/12/2020 Influenza High-Dose Trivalent Preservative Free IM 01/05/2015 Influenza Quadrivalent Preservative Free IM 07/2022,12/22/2021 Influenza Trivalent Adjuvanted Preservative free IM 01/05/2017,12/27/2015 Influenza Trivalent Preservative Free IM 024 Pneumococcal conjugate PCV13 12/27/2015 Pneumococcal conjugate PCV20 01/13/2023 Pneumococcal polysaccharide PPSV23 01/05/2017 RSV Vaccine (bivalent) 03/05/2023 Family History Medical History Relation Comments No Known Problems Daughter 1 teacher for [employer] No Known Problems Daughter 2 teacher, [employer] Colon cancer Father Aneurysm Mother No Known Problems Son IT for biotech Relation Status Comments Daughter 1 Alive Daughter 2 Alive Father (Age 56) Grandchild Alive Mother (Age 74) Son Alive Social History Tobacco Use Types Packs/Day Years [...] with a working camera? Not on file 05 / Intimate Partner Violence Answer Date R ecorded [...] on file Sexual Orientation Not on file Last Filed Vital Signs Vital Sign Reading Time Taken Comments Blood Pressure 147/75 04/10/2024 11:34 AM EST Pulse 73 04/10/2024 11:34 AM EST Temperature 36.8 ??C (98.2 ??F) 04/10/2024 11:[address] Respiratory Rate 18 11/12/2022 8:21 AM EDT Oxygen Saturation 97% 04/10/2024 11:34 AM EST Inhaled Oxygen Concentration - - Weight 65.5 kg (144 lb 6.4 oz) 04/10/2024 11:34 AM EST Height 164.4 cm (5' 4.72 ) 04/10/2024 11:[address] Body Mass Index 24.23 04/10/2024 11:34 AM EST Plan of Treatment Upcoming Encounters Date Type Department Care Team (Late st Contact Info) Description 08/01/2024 1:00 PM EDT Office Visit [address] [place] [address] Sherman Miller MD [address] [place] [address], [address] [place] [address] [email or web address] Health Maintenance Due Date Last Done Comments Adult Td,Tdap Booster 1950 HEPATITIS B SCREENING 1968 COVID-19 VACCINE ( season) 2023 12/17/2022, 01/05/2022, 02/02/2021, Additional history exists DEPRESSION SCREENING 02/25/2024 02/24/2023 HEPATITIS C SCREENING Completed 10/15/2019 PNEUMOCOCCAL VACCINES (50+ years) Completed 01/13/2023, 01/05/2017, 12/27/2015 RSV VACCINE Completed 03/05/2023 INFLUENZA VACCINE Completed 12/08/2023, , 12/22/2021, Additional history exists SMOKING STATUS SCREENING (Once After 26 Yrs) Completed 04/10/2024 HEPATITIS A VACCINES Aged Out No long er eligible based on patient's age to complete this topic HEPATITIS B VACCINES Aged Out No long er eligible based on patient's age to complete this topic HIB VACCINES Aged Out No longer eligi ble based on patient's age to complete this topic MENINGOCOCCAL VACCINES (ACWY) Aged Out No longer eligible based on patient's age to complete this topic Medical Devices Not on file Procedures Procedure Name Priority Date/Time Associated Diagnosis Comments BASIC METABOLIC PANEL Routine 04/10/2024 12:14 PM EST Acute kidney injury BASIC METABOLIC PANEL Routine 04/05/2024 1:32 PM EST Acute kidney injury CBC AND DIFFERENTIAL Routine 03/29/2024 3:51 PM EST Diarrhea, unspecified type BASIC METABOLIC PANEL Routine 03/29/2024 3:51 PM EST Diarrhea, unspecified type LFTS (HEPATIC PANEL) Routine 03/29/2024 3:51 PM EST Diarrhea, unspecified type LIPASE Routine 03/29/2024 3:51 PM EST Diarrhea, unspecified type OUTSIDE ECHO Routine 02/22/2024 11:27 AM EST HEPATITIS C ANTIBODY, QUALITATIVE Routine 10/15/2019 10:49 AM EDT Encounter for Medicare annual wellness exam from Last 3 Months or Most Recently Relevant to Health Maintenance Results * (ABNORMAL) Basic metabolic panel (04/10/2024 12:14 PM EST) Only the most recent of3 resultswithin the time period is included. SODIUM 137 133 - 146 mmol/L [facility] CHLORIDE 105 96 - 108 mmol/L [facility] POTASSIUM 5.7(H) 3.3 - 5.1 mmol/L [facility] CO2 18(L) 21 - 35 mmol/L [facility] BUN 76(H) 6 - 19 mg/dL [facility] CREATININE 4.30(H) 0.5 - 1.5 mg/dL [facility] GLUCOSE 85 70 - 99 mg/dL [facility] CALCIUM 8.0(L) 8.4 - 10.3 mg/dL [facility] EGFR 14(L) >59 mL/min/1.7 3m2 [facility] Comment:Estimated glomerular filtration rate calculated using the CKD-EPI refit equation. ANION GAP 20 10 - 20 mmol/L [facility] Blood 04/10/2024 12:1 4 PM EST 04/10/2024 12:25 PM EST Shemran Miller MD LAB BLOOD ORDERABL ES Performing Organization Address City/State/[facility] Co de Phone Number [address] [address] * (ABNORMAL) LFTs (hepatic panel) (03/29/2024 3:51 PM EST) ALKALINE PHOSPHATASE 146(H) 39 - 117 U/L [facility] TOTAL BILIRUBIN 0.4 0.0 - 1.2 mg/dL [facility] DIRECT BILIRUBIN <0.2 0 - 0.3 mg/dL [facility] Bilirubin (Indirect) NOT CALCULATED 0 - 1.5 mg/dL [facility] AST 15 0 - 37 U/L [facility] ALT 8 0 - 40 U/L [facility] TOTAL PROTEIN 6.3(L) 6.5 - 8.0 g/dL [facility] ALBUMIN 3.3(L) 3.9 - 4.8 g/dL [facility] GLOBULIN 3.0 1 - 4.8 g/dL [facility] A/G Ratio 1.10 1.00 - 4.80 RATIO [facility] Blood 03/29/2024 3:51 PM EST 03/29/2024 6:59 PM EST Chalice Santorelli INSPECTOR WATER POLLUTION CONTROL LAB BLOOD ORDERABL ES [facility] [address] [place] [address] * (ABNORMAL) CBC and differential (03/29/2024 3:51 PM EST) WBC 26.90(H) 4.00 - 11.00 K/uL [facility] RBC 8.72(H) 4.50 - 5.90 M/uL [facility] HGB 15.8 13.5 - 17.5 g/dL [facility] HCT 59.2(H) 41.0 - 53.0 % [facility] PLT 576(H) 150 - 450 K/uL [facility] MCV 67.9(L) 80.0 - 100.0 fL [facility] MCH 18.1(L) 27.0 - 31.0 pg [facility] MCHC 26.7(L) 32.0 - 36.0 g/dL [facility] RDW 22.3(H) 11.5 - 14.5 % [facility] MPV 10.2 8.4 - 12.0 fL [facility] NRBC 0.00 0.00 /100 WBCs [facility] ABSOLUTE NRBC 0.00 0.00 K/uL [facility] DIFF METHOD Auto [facility] NEUTS 87.2(H) 48.0 - 76.0 % [facility] LYMPHS 4.4(L) 18.0 - 41.0 % [facility] MONOS 3.6(L) 4.0 - 11.0 % [facility] EOS 3.7 0.0 - 5.0 % [facility] BASOS 0.4 0.0 - 1.5 % [facility] Granulocytes, immature (%) 0.7 0.0 - 0.9 % [facility] ABSOLUTE NEUTS 23.44(H) 1.92 - 7.60 K/uL [facility] ABSOLUTE LYMPHS 1.18 0.72 - 4.10 K/uL [facility] ABSOLUTE MONOS 0.96 0.16 - 1.10 K/uL [facility] ABSOLUTE EOS 1.00(H) 0.00 - 0.50 K/uL [facility] ABSOLUTE BASOS 0.12 0.00 - 0.15 K/uL [facility] Granulocytes, immature 0.20(H) 0.00 - 0.09 K/uL [facility] Blood 03/29/2024 3:51 PM EST 03/29/2024 6:59 PM EST Ga Zapata NP LAB BLOOD ORDERABL ES Performing Organization Address [facility]/ZIP Co de Phone Number [address] [address] * Lipase (03/29/2024 3:51 PM EST) LIPASE 42 16 - 63 U/L [facility] Blood 03/29/2024 3:51 PM EST 03/29/2024 6:59 PM EST Ga Zapata NP LAB BLOOD ORDERABL ES Performing Organization Address [facility] de Phone Number [address] [address] * Outside Echo Report Only (02/22/2024 11:27 AM EST) Historical Provider CV ECHO ORDERABLE S * Hepatitis C antibody, qualitative (10/15/2019 10:49 AM EDT) HCV NON-REACTIV E NON-REACTI VE [facility] Blood 10/15/2019 10:4 9 AM EDT 10/15/2019 11:03 AM EDT Sherman Miller MD LAB BLOOD ORDERABL ES Performing Organization Address [facility] Co de Phone Number [address] [address] from Last 3 Months or Most Recently Relevant to Health Maintenance Care Teams Buffer Inflated Pad Relationship Specialty Start Date End Date Sherman Miller MD [address] [place] [address], [address] [place] [address] [email or web address] PCP - General Internal Medicine 05/15/18 Tate Moulton MD [address] [place] [address], [address] [place] [address] [email or web address] 06/19/18 Tanisha Perkins MD [address] [place] [address] [email or web address] Oncology 06/19/18 Harsh Ross MD [address] [place] [address] Orthopedic Surgery 10/15/19 Suellen Mccann MD [address] [place] [address] Gastroenterology 10/23/20 Chante Vizcaino MD [address] [place] [address] Cardiology 11/12/22 Additional Source Comments The information contained in this document represents components of the legal health record. It is not the complete legal health record.[facility]
--- OUTSIDE RECORDS SUMMARY | 2024-05-02 15:10 | XMS_ITS | Clinical Summary ---
Author Organization [facility] Facility Address [address] [address] Care Team Providers Care Toy Stuffer Name Role Phone Unavailable Primary Care Provider [...] patient's age to complete this topic Insurance [facility]
--- OUTSIDE RECORDS SUMMARY | 2024-05-02 15:10 | XMS_ITS | Encounter Summary ---
Author Organization [facility] Address [phone] Critical access [place] [address] Care Team Providers Care Water Hauler Name Role Phone Sherman Miller MD Primary Care Provider [phone] Tate Moulton MD Unavailable Tanisha Perkins MD Unavailable [phone] Harsh Ross MD Unavailable [phone] Suellen Mccann MD Unavailable [phone] Chante Vizcaino MD Unavailable [phone] Reason for Visit * Reason Onset Date Comments Referral 04/02/2024 Kidney care spec ialist question 04/02/2024 Encounter Details Date Type Department Care Team (Late st Contact Info) Description 04/02/2024 Telephone [facility] [address] [place], [place] [id number] Sherman Miller MD [address] [place] [address], [address] [place], [place] [id number] [email or web address] Referral (Kidney resident care provider ); question Social History Tobacco Use Types [...] he has already been communicating via Patient Maynard, advised to have his labs rechecked before referral to kidney care associated with [facility]. Requested referral be queued regardless and if he does not need to followup with them, he will just cancel. Queued and routed to provider for review and recommendation. * May Huerta - 04/04/2024 2:19 PM EST Pt called in regarding this Pt called kidney assistants and they have not gotten any referral. Please contact and advise pt. Central Support Steamfitter (Please do not reply to this user; [...] the emergency department, but was not at [facility]. Please get a copy of the emergency [...] to go about this for kidney [facility] .Please contact and advise. Central Support Steamfitter (Please do not reply to this user; this inbox is not monitored.) Thank you. documented in this encounter Plan of Treatment Upcoming Encounters Date Type Department Care Team (Late st Contact Info) Description 08/01/2024 1:00 PM EDT Office Visit [address] [place] [address] Sherman Miller MD [address] [place] [address], [address] [place] [address] [email or web address] documented as of this encounter Visit Diagnoses Diagnosis Acute kidney injury- Primary documented in this encounter Additional Health Concerns Infection Onset Date Last Indicated Resolved Time CDiff-Risk 03/28/2024 03/28/2024 04/04/2024 1:22 AM EST Assessment Noted Time PHQ-2 Depression Total Score: 0 02/25/20 23 2:54 PM EST documented as of this encounter Care Teams Water Hauler Relationship Specialty Start Date End Date Sherman Miller MD [address] [place] [address], [address] [place] [address] [email or web address] PCP - General Internal Medicine 05/15/18 Tate Moulton MD [address] [place] [address], [address] [place] [address] [email or web address] 06/19/18 Tanisha Perkins MD [address] [place] [id number] [email or web address] Oncology 06/19/18 Harsh Ross MD [address] [facility] [address] [place] [address] Orthopedic Surgery 10/15/19 Suellen Mccann MD [address] [place] [address] Gastroenterology 10/23/20 Chante Vizcaino MD [address] [place] [address] Cardiology 11/12/22 documented as of this encounter Additional Source Comments The information contained in this document represents components of the legal health record. It is not the complete legal health record.[facility]
--- OUTSIDE RECORDS SUMMARY | 2024-05-02 15:11 | XMS_ITS | Encounter Summary ---
Author Organization [facility] Address [phone] [facility] [place] [address] Care Team Providers Care Conductor Orchestra Name Role Phone Sherman Miller MD Primary Care Provider +1- [phone] Tate Moulton MD Unavailable Tanisha Perkins MD Unavailable [phone] Harsh Ross MD Unavailable [phone] Suellen Mccann MD Unavailable [phone] Chante Vizcaino MD Unavailable [phone] Encounter Details Date Type Department Care Team (Latest Contact Info) Description 04/10/2024 12:01 PM EST - 04/10/2024 11:59 PM EST Hospital Encounter [facility] [address] [place] [address] [place], [place] [id number] Sherman Miller MD [address] [facility], [address] [place] [address] [email or web address] Discharge Disposition: Home or Self Care [...] Description 08/01/2024 1:00 PM EDT Office Visit [facility], located within [facility] [address] [place] [address] [place] [address] Sherman Miller MD 22 [facility], [address] [place] [address] [email or web address] documented as of this encounter Procedures Procedure Name Priority Date/Time Associated Diagnosis Comments BASIC METABOLIC PANEL Routine 04/10/2024 12:14 PM EST Acute kidney injury documented in this encounter Results * (ABNORMAL) Basic metabolic panel (04/10/2024 12:14 PM EST) SODIUM 137 133 - 146 mmol/L [facility] CHLORIDE 105 96 - 108 mmol/L [facility] POTASSIUM 5.7(H) 3.3 - 5.1 mmol/L [facility] CO2 18(L) 21 - 35 mmol/L [facility] BUN 76(H) 6 - 19 mg/dL [facility] CREATININE 4.30(H) 0.5 - 1.5 mg/dL [facility] GLUCOSE 85 70 - 99 mg/dL [facility] CALCIUM 8.0(L) 8.4 - 10.3 mg/dL [facility] EGFR 14(L) >59 mL/min/1.7 3m2 [facility] Comment:Estimated glomerular filtration rate calculated using the CKD-EPI refit equation. ANION GAP 20 10 - 20 mmol/L [facility] Blood 04/10/2024 12:1 4 PM EST 04/10/2024 12:25 PM EST Sherman Miller MD LAB BLOOD ORDERABL ES [address] [address] documented in this encounter Visit Diagnoses Diagnosis Acute kidney injury documented in this encounter Additional Health Concerns Assessment Noted Time PHQ-2 Depression Total Score: 0 02/25/20 23 2:54 PM EST documented as of this encounter Care Teams Conductor Orchestra Relationship Specialty Start Date End Date Sherman Miller MD [address] [place] [address], [address] [place] [address] [email or web address] PCP - General Internal Medicine 05/15/18 Tate Moulton MD [address] [facility], [address] [place] [address] [email or web address] Urology 06/19/18 Tanisha Perkins MD [address] [place] [address] [email or web address] Oncology 06/19/18 Harsh Ross MD [address] [place] [address] Orthopedic Surgery 10/15/19 Suellen Mccann MD [address] [facility] [address] [place] [address] Gastroenterology 10/23/20 Chante Vizcaino MD [address] [place] [address] [email or web address] Cardiology 11/12/22 documented as of this encounter Additional Source Comments The information contained in this document represents components of the legal health record. It is not the complete legal health record.[facility]
--- OUTSIDE RECORDS SUMMARY | 2024-05-02 15:11 | XMS_ITS | Clinical Summary ---
Author Organization [facility] Address [address] [place] [address] Care Team Providers Care Sales Floor Manager Name Role Phone Sherman Miller MD Primary Care Provider [phone] Allergies No known active allergies Medications Medication Sig Dispensed Refills Start Date End Date Status finasteride (PROSCAR) 5 MG tablet Take 1 tablet (5 mg total) by mouth daily. 0 Active tamsulosin (FLOMAX) 0.4 MG CAPS Take 1 capsule (0.4 mg total) by mouth daily. 0 Active vitamin C (ASCORBIC ACID) 500 MG tablet Take 1 tablet (500 mg total) by mouth daily. 0 Active vitamin D3 (VITAMIN D3) 25 MCG (1000 UT) tablet Take 1 tablet (1,000 Units total) by mouth daily. 0 Active Cod Liver Oil 1000 MG CAPS Take 1 capsule by mouth daily. 0 Active Magnesium 250 MG TABS Take 200 mg by mouth daily. 0 Active aspirin EC 81 MG tablet Take 1 tablet (81 mg total) by mouth daily. 0 Active sacubitril-valsartan (ENTRESTO) 24-26 MG per tablet Take 1 tablet by mouth 2 (two) times a day. 0 Active dapagliflozin propanediol (Farxiga) 5 MG tablet Take by mouth. 0 Active ticagrelor (BRILINTA) 90 MG TABS tablet Take by mouth 2 (two) times a day. 0 Active metoprolol tartrate (LOPRESSOR) 25 MG tablet Take by mouth 2 (two) times a day. 0 Active atorvastatin (LIPITOR) tablet 80 mg Take 1 tablet (80 mg total) by mouth daily. 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 Social History Tobacco Use Types Packs/Day Years Used Date Smoking Tobacco: Never Assessed Tobacco Cessation:Counseling Given: Not Answered Sex and Gender Information Value Date Recorded Sex Assigned at Not on file Gender Identity Not on file Sexual Orientation Not on file Job Start Date Occupation Industry Not on file Not on file Not on file Last Filed Vital Signs Vital Sign Reading Time Taken Comments Blood Pressure 124/67 01/26/2023 10:03 AM EST Pulse 67 01/26/2023 10:03 AM EST Temperature 36.7 ??C (98.1 ??F) 01/26/2023 10:[address] Respiratory Rate - - Oxygen Saturation 99% 01/26/2023 10:03 AM EST Inhaled Oxygen Concentration - - Weight 63.8 kg (140 lb 9.6 oz) 01/26/2023 10:03 AM EST Height 167.6 cm (5' 6 ) 01/02/2021 10:39 AM EDT Body Mass Index 22.69 01/02/2021 10:39 AM EDT Plan of Treatment Health Maintenance Due Date Last Done Comments Depression Screening 1960 Preventative Health Evaluation 1966 DTap / Tdap / Td (1 - Tdap) 05/26/1967 Shingrix-Zoster Vaccine (1 of 2) 05/26/1967 Colon Cancer Screening (Colonoscopy) 1993 Fall Risk Assessment 2013 COVID-19 Vaccine (2 - Moderna risk series) 05/14/2020 04/16/2020 RSV Adult > 60+ Yrs or (1 - 1-dose 75+ series) 05/26/2023 Influenza Vaccine (#1) 2023 2, 12/12/2020, 01/05/2017, Additional history exists Pneumococcal Vaccine Completed 01/05/2017, 12/27/19 16 Hepatitis C Screening Completed 10/15/2019 Hepatitis B Vaccines Aged Out No long er eligible based on patient's age to complete this topic RSV Ped < 20 months Aged Out No longe r eligible based on patient's age to complete this topic Care Teams Sales Floor Manager Relationship Specialty Start Date End Date Sherman Miller MD [address] [place] [address] PCP - General Internal Medicine 10/10/19
--- OUTSIDE RECORDS SUMMARY | 2024-05-02 15:11 | XMS_ITS | Encounter Summary ---
Author Organization [facility] Address [phone] [facility] [place] [address] Care Team Providers Care Global Sourcing Manager Name Role Phone Sherman Miller MD Primary Care Provider [phone]- [phone] Tate Moulton MD Unavailable Tanisha Perkins MD Unavailable [phone] Harsh Ross MD Unavailable [phone] Suellen Mccann MD Unavailable [phone] Chante Vizcaino MD Unavailable [phone] Encounter Details Date Type Department Care Team (Latest Contact Info) Description 04/05/2024 12:27 PM EST - 04/05/2024 11:59 PM EST Hospital Encounter [facility] [address] [place] [address] [place], [place] [phone] Sherman Miller MD [address] [place] [address], [address] [place] [address] [email or web address] Discharge Disposition: Home or Self [...] 08/01/2024 1:00 PM EDT Office Visit [address] [address] Sherman Miller MD [address] [place] [address], [address] [place] [address] [email or web address] documented as of this encounter Procedures Procedure Name Priority Date/Time Associated Diagnosis Comments BASIC METABOLIC PANEL Routine 04/05/2024 1:32 PM EST Acute kidney injury documented in this encounter Results * (ABNORMAL) Basic metabolic panel (04/05/2024 1:32 PM EST) SODIUM 133 133 - 146 mmol/L [facility] CHLORIDE 100 96 - 108 mmol/L [facility] POTASSIUM 5.6(H) 3.3 - 5.1 mmol/L [facility] CO2 22 21 - 35 mmol/L [facility] BUN 74(H) 6 - 19 mg/dL [facility] CREATININE 4.40(H) 0.5 - 1.5 mg/dL [facility] GLUCOSE 83 70 - 99 mg/dL [facility] CALCIUM 8.0(L) 8.4 - 10.3 mg/dL [facility] EGFR 13(L) >59 mL/min/1.7 3m2 [facility] Comment:Estimated glomerular filtration rate calculated using the CKD-EPI refit equation. ANION GAP 17 10 - 20 mmol/L [facility] Blood 04/05/2024 1:32 PM EST 04/05/2024 1:40 PM EST Sherman Miller MD LAB BLOOD ORDERABL ES [facility] [address] [place] [address] documented in this encounter Visit Diagnoses Diagnosis Acute kidney injury documented in this encounter Additional Health Concerns Assessment Noted Time PHQ-2 Depression Total Score: 0 02/25/20 23 2:54 PM EST documented as of this encounter Care Teams Global Sourcing Manager Relationship Specialty Start Date End Date Sherman Miller MD [address] [place] [address], [address] [place] [address] [email or web address] PCP - General Internal Medicine 05/15/18 Tate Moulton MD [facility], [address] [place] [address] [email or web address] Urology 06/19/18 Tanisha Perkins MD [address] [place] [address] [email or web address] Oncology 06/19/18 Harsh Ross MD [address] [facility] [address] [place] [address] Orthopedic Surgery 10/15/19 Suellen Mccann MD [address] [facility] [address] [place] [address] Gastroenterology 10/23/20 Chante Vizcaino MD [address] [place] [address] [email or web address] Cardiology 11/12/22 documented as of this encounter Additional Source Comments The information contained in this document represents components of the legal health record. It is not the complete legal health record.[facility]
--- OUTSIDE RECORDS SUMMARY | 2024-05-02 15:11 | XMS_ITS | Encounter Summary ---
Author Organization [facility] Address [phone] [place] [address] Care Team Providers Care Rn Physician Office Name Role Phone Ken Kyle MD Primary Care Provider [phone]- [phone] Tate Moulton MD Unavailable Tanisha Perkins MD Unavailable [phone] Harsh Ross MD Unavailable Suellen Mccann MD Unavailable [phone] Chante Vizcaino MD Unavailable [phone] Reason for Referral * Consultation (Within 3 days (urgent)) - Pending Review Specialty Diagnoses / Procedures Referred By Nona leon Referred To Contact Diagnoses Acute kidney injury Ken Kyle MD [address] [facility], [address] [place] [address] Email: [email or web address] Referral ID Status Reason Start Date Expiration Date V isits Requested Visits Authorized [id number] Pending Review 04/08/2024 04/07/2025 1 1 Scheduling Instructions [facility] Reason for Visit * Reason Onset Date Comments Triage 04/06/2024 Yellow - High Po tassium Encounter Details Date Type Department Care Team (Late st Contact Info) Description 04/06/2024 Telephone [facility] [address] [place] [address] Ken Kyle MD [address] [facility], [address] [place] [address] [email or web address] Triage (Yellow - High Potassium) Social History [...] referral be sent to [facility], pended. Pt asks if we schedule to [...] level is high. Please advise. Central Support Inventory Checker (Please do not reply to this user; [...] Description 08/01/2024 1:00 PM EDT Office Visit [address] [address] Ken Kyle MD [address] [place] [address], [address] [place] [address] [email or web address] Scheduled Referrals Name Type Priority Associated Diagnoses Order Schedule Ambulatory referral to External Nephrology Outpatient Referral Routine Acute kidney injury Ordered: 04/08/2024 documented as of this encounter Visit Diagnoses Diagnosis Acute kidney injury- Primary documented in this encounter Additional Health Concerns Assessment Noted Time PHQ-2 Depression Total Score: 0 02/25/20 23 2:54 PM EST documented as of this encounter Care Teams Rn Physician Office Relationship Specialty Start Date End Date Ken Kyle MD [address] [place] [address], [address] [place] [address] [email or web address] PCP - General Internal Medicine 05/15/18 Tate Moulton MD [address] [place] [address], [address] [place] [address] [email or web address] Urology 06/19/18 Tanisha Perkins MD [address] [place] [address] [email or web address] Oncology 06/19/18 Harsh Ross MD [facility] [address] [facility] [address] [place] [address] Orthopedic Surgery 10/15/19 Suellen Mccann MD [address] [facility] [address] [place] [address] Gastroenterology 10/23/20 Chante Vizcaino MD [address] [place] [address] [email or web address] Cardiology 11/12/22 documented as of this encounter Additional Source Comments The information contained in this document represents components of the legal health record. It is not the complete legal health record.[facility]
--- OUTSIDE RECORDS SUMMARY | 2024-05-02 15:11 | XMS_ITS | Clinical Summary ---
Author Organization [employer] Address [address] [place] [address] 7t [place] [address] Care Team Providers Care Stock Holder Name Role Phone Sherman Miller MD Primary Care Provider [phone]- [phone] Allergies No known active allergies Medications Aspirin [...] 2023, LVEF 40 to 45%. 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 Polycythemia vera 06/19/2018 Overview (03/08/2024): Therapeutic phlebotomies at [facility] Encounters Date Type Department Care Team Description 03/08/2024 2:00 PM EST Office Visit [facility] OPTOMETRY [address] [place] [address] Sara Odell OD Blepharoconjunctivitis of both eyes, unspecified blepharoconjunctivitis type (Primary Dx) 03/07/2024 Travel 02/21/2024 Telephone [facility] OPTOMETRY [address] [place], [place] [phone] Cassandra Nicole from Last 3 Months Social [...] patient's age to complete this topic [place] [address] [address] [place] [address] [place] Atten: SUE Rob [id number] [employer] PREFERRED [employer]IME MEDICARE [place] [employer] PREF[employer]ED [facility] [place] Care Teams Stock Holder Relationship Specialty Start Date End Date Sherman Miller MD [address] [place] [address], [address] [place] [address] PCP - General Internal Medicine 12/29/23
--- OUTSIDE RECORDS SUMMARY | 2024-05-02 15:11 | XMS_ITS | Clinical Summary ---
Author Organization [facility] Address [address] [place] [address] Phone Care Team Providers Care Cosmetician Name Role Phone Sherman Miller MD Primary Care Provider [phone]- [phone] Medications finasteride (PROSCAR) 5 mg tablet Take [...] mouth 1 (one) time each day. Active [id number]-cod liver-vit A-D3 240-1,000 mg capsule Take 1 [...] patient's age to complete this topic Insurance [facility] Care Teams Cosmetician Relationship Specialty Start Date End Date Sherman Miller MD [address] [place] [address] PCP - General Pediatrics 09/19/18
--- OUTSIDE RECORDS SUMMARY | 2024-05-02 15:11 | XMS_ITS | Encounter Summary ---
Author Organization [facility] Address [phone] [place] [address] Care Team Providers Care Early Head Start Director Name Role Phone Sherman Miller MD Primary Care Provider [phone]- [phone] Tate Moulton MD Unavailable Tanisha Perkins MD Unavailable [phone] Harsh Ross MD Unavailable [phone] Suellen Mccann MD Unavailable [phone] Chante Vizcaino MD Unavailable [phone] Reason for Referral * Consultation (Within 3 days (urgent)) - Pending Review Specialty Diagnoses / Procedures Referred By Nona leon Referred To Contact Diagnoses Acute kidney injury Sherman Miller MD 22 [facility], [address] [place] [address] Email: [facility] [address] [facility] [place] [address] Referral ID Status Reason Start Date Expiration Date V isits Requested Visits Authorized [id number] Pending Review 04/06/2024 04/06/2025 6 6 Encounter Details Date Type Department Care Team (Late st Contact Info) Description 04/06/2024 Orders Only [address] [address] Sherman Miller MD [address] [place] [address], [address] [place] [address] [email or web address] Acute kidney injury (Primary Dx) Social History [...] 08/01/2024 1:00 PM EDT Office Visit [address] [place] [address] Sherman Miller MD [address] [place] [address], [address] [place] [address] [email or web address] Scheduled Referrals Name Type Priority Associated Diagnoses Order Schedule Ambulatory referral to External Nephrology Outpatient Referral Routine Acute kidney injury Ordered: 04/06/2024 documented as of this encounter Visit Diagnoses Diagnosis Acute kidney injury- Primary documented in this encounter Additional Health Concerns Assessment Noted Time PHQ-2 Depression Total Score: 0 02/25/20 23 2:54 PM EST documented as of this encounter Care Teams Early Head Start Director Relationship Specialty Start Date End Date Sherman Miller MD [address] [place] [address], [address] [place] [address] [email or web address] PCP - General Internal Medicine 05/15/18 Tate Moulton MD [address] [place] [address], [address] [place] [address] [email or web address] 06/19/18 Tanisha Perkins MD [address] [place] [address] [email or web address] Oncology 06/19/18 Harsh Ross MD [address] [place] [address] Orthopedic Surgery 10/15/19 Suellen Mccann MD [address] [place] [address] Gastroenterology 10/23/20 Chante Vizcaino MD [address] [place] [address] [email or web address] Cardiology 11/12/22 documented as of this encounter Additional Source Comments The information contained in this document represents components of the legal health record. It is not the complete legal health record.[facility]
--- OUTSIDE RECORDS SUMMARY | 2024-05-02 15:11 | XMS_ITS | Encounter Summary ---
Author Organization [employer] Address [address] [place] [address] Care Team Providers Care Barber Stylist Name Role Phone Sherman Miller MD Primary Care Provider [phone]- [phone] Encounter Details Date Type Department Care Team (Late st Contact Info) Description 01/09/[address] [facility] Hematology Oncology [address] [place] [address] Tanisha Perkins MD [address] [place] [address] Social History Tobacco Use Types [...] I called and spoke with Lizeth at [facility]. I advised her to please cancel future phlebotomy orders until patient is seen by tumbler plater/. She is going to note patients chart. * Tanisha Perkins MD - 04/11/2024 9:44 AM EST Please send an order to [facility], canceled ongoing phlebotomy order. Patient was supposedto be seen in the office for an appointment and canceled it. No further phlebotomy orders unless patient is seen in clinic please let them know * Hafsa Ahumada MA - 01/13/2024 1:28 PM EST Phlebotomy order faxed to [facility]. I called patient to let [...] Patient requesting a new phlebotomy order to [place] documented in this encounter Plan of Treatment Not on file documented as of this encounter Visit Diagnoses Not on filedocumented in this encounter Care Teams Barber Stylist Relationship Specialty Start Date End Date Sherman Miller MD [address] [place] [address] PCP - General Pediatrics 09/19/18 documented as of this encounter
[2024-05-03 10:43] LABS: Complement C3 139 mg/dL (82-185)
[2024-05-03 14:44] LABS: IgA 168 mg/dL (70-320); IgG 1312 mg/dL (600-1540); IgM 76 mg/dL (50-300)
[2024-05-04 09:03] LABS: Anti DNA DS Antibody 8 IU/mL; Anti Glomerular Basement Memb <1.0 AI; Myeloperoxidase Antibody <1.0 AI; Proteinase 3 PR3 Antibodies <1.0 AI
[2024-05-09 01:23] LABS: Phospholipase A2 IgG ELISA <4 RU/mL; Phospholipase A2 IgG IFA NEGATIVE (NEGATIVE)
== END 2024-05-02 12:15 | disposition home or self-care (01) ==
LOC: HO.LAB 12:14
PROVIDERS: PCP Internal Medicine; Visit Provider Internal Medicine Nephrology
DX: N17.9 Acute kidney failure, unspecified (principal); N18.31 Chronic kidney disease, stage 3a
CPT/HCPCS: 80051; 82306; 82310; 82565; 82570; 82784; 83520; 83970; 84100; 84156; 84520; 85610; 86021; 86160; 86225; 86255; 86334; 86335

== ENCOUNTER 2024-05-22 11:17 | Day surgery (SDC) | payer MEDICARE, SELFPAY ==
--- OUTSIDE RECORDS SUMMARY | 2024-05-14 11:39 | XMS_ITS | Clinical Summary ---
Author Organization [facility] Address [address] [address] Care Team Providers Care Surgical Sales Representative Name Role Phone Unavailable Primary Care Provider [...] patient's age to complete this topic Insurance [facility]
--- OUTSIDE RECORDS SUMMARY | 2024-05-14 11:39 | XMS_ITS | Clinical Summary ---
Author Organization [facility] Address [address] [place] [address] Phone Care Team Providers Care Digital Production Artist Name Role Phone Sherman Miller MD Primary Care Provider [phone]- [phone] Medications finasteride (PROSCAR) 5 mg tablet Take [...] mouth 1 (one) time each day. Active [id number]-cod liver-vit A-D3 240-1,000 mg capsule Take 1 [...] patient's age to complete this topic Insurance [facility] PL[facility] Care Teams Digital Production Artist Relationship Specialty Start Date End Date Sherman Miller MD [address] [place] [address] PCP - General Pediatrics 09/19/18
--- OUTSIDE RECORDS SUMMARY | 2024-05-14 11:39 | XMS_ITS | Clinical Summary ---
Author Organization [employer] Address [address] [place] [address] 7t [place] [address] Care Team Providers Care Revenue Tax Specialist Name Role Phone Sherman Miller MD Primary Care Provider [phone]- [phone] Allergies No known active allergies Medications Aspirin [...] 2023, LVEF 40 to 45%. 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 Polycythemia vera 06/19/2018 Overview (03/08/2024): Therapeutic phlebotomies at [facility] Encounters Date Type Department Care Team Description 03/08/2024 2:00 PM EST Office Visit [facility] OPTOMETRY [address] [place] [address] Sara Odell OD Blepharoconjunctivitis of both eyes, unspecified blepharoconjunctivitis type (Primary Dx) 03/07/2024 Travel 02/21/2024 Telephone [facility] OPTOMETRY [address] [place], [place] [phone] Cassandra Nicole from Last 3 Months Social [...] patient's age to complete this topic [place] [address] [address] [place] Atten: SUE Rob [id number] [employer] MED[employer] PREFERRED PRIME MEDICARE [place] [employer] PREFERRED [facility]IME [facility] [place] Care Teams Revenue Tax Specialist Relationship Specialty Start Date End Date Sherman Miller MD [address] [place] [address], [address] [place] [address] PCP - General Internal Medicine 12/29/23
--- OUTSIDE RECORDS SUMMARY | 2024-05-14 11:39 | XMS_ITS | Clinical Summary ---
Author Organization [facility] Address [address] [place] [address] Care Team Providers Care Coal Shooter Name Role Phone Sherman Miller MD Primary Care Provider [phone] Allergies No known active allergies Medications Medication [...] age to complete this topic Care Teams Coal Shooter Relationship Specialty Start Date End Date Sherman Miller MD [address] [place] [address] PCP - General Internal Medicine 10/10/19
[2024-05-22] VITALS (14 sets, daily range): BP systolic 124–146; BP diastolic 78–95; PULSE 83–99; RESP 14–20; TEMP 36.1–37.7; O2SAT 93–96; BMI 24.1
--- NOTE | ~2024-05-22 | CT_ITS ---
PROCEDURE: CT GUIDED BIOPSY, KIDNEY CLINICAL INFORMATION: Acute kidney failure COMPARISON: None available. TECHNIQUE: Following explaining CT fluoroscopy-guided kidney biopsy procedure, benefits in risk, a written consent was obtained. An was placed prone on fluoroscopy table and preliminary CT imaging was performed through the mid abdomen. Markers were placed along the skin overlying the lower pole of left kidney. An optimal marker was selected and marked and the skin. The area marked and the skin was cleaned and draped in usual sterile manner with 2% chlorhexidine solution. 1% lidocaine was injected puncture site. 3 small skin incision a 20-gauge biopsy guide was advanced from the skin to the perinephric space of lower pole left kidney. Coaxially a 20-gauge gun was coaxially advanced and a 3 pass core biopsy was obtained. No immediate bleeding seen along the lower pole. Needle was withdrawn and complete hemostasis achieved puncture site. Simple compressive dressing was placed on the skin site. Patient targeted procedure extremely well. Conscious sedation was given for 15 minutes. Patient was observed by nursing and physician during the exam. This CT examination was performed using dose optimization techniques as appropriate, variously including the following: *Automated exposure control *Adjustment of mA and/or kV according to patient size (this includes techniques or standardized protocols for targeted exams where dose is matched to indication/reason for exam; i.e. extremities or head) *Use of iterative reconstruction technique FINDINGS: On preliminary CT imaging visualized kidneys are unremarkable. There is bilateral small pleural effusions gravitated anteriorly with minimal bibasilar compressive atelectasis. The heart size enlarged. Visualized but limited liver spleen, adrenal glands, gallbladder and pancreas appears unremarkable. No retrocrural mass or lymph nodes. A 3pass core biopsy of left kidney lower pole was performed without immediate complications. The trauma scene. CT/CT biopsy renal LT IMPRESSION: Successful CT fluoroscopy guided left kidney lower pole core biopsy performed. Samples collected was sent in formalin to pathology for further evaluation. There is bilateral pleural effusions with underlying bibasilar passive atelectasis. Electronically signed by: Loki Carrion MD 05/22/2024 04:01 PM EDT
[2024-05-22 12:24] LABS: Basophils Absolute Auto 0.3 X10*3/uL (0.0-0.2); Eosinophils Absolute Auto 0.6 X10*3/uL (0.0-0.4); Eosinophils Percent Auto 2.4 % (0-4); Hemoglobin 16.4 g/dl (14.0-18.0); Imm Gran Abs Auto 0.24 X10*3/uL (0.00-0.03); Imm Gran Pct Auto 0.9 % (0.0-0.4); Lymphocytes Absolute Auto 0.8 X10*3/uL (1.2-4.9); Lymphocytes Percent Auto 2.9 % (20-40); MANUAL DIFF FLAG SCAN; Mean Corpuscular HGB Conc 28.3 g/dl (31.0-36.0); Mean Corpuscular Hemoglobin 18.5 pg (27.0-33.0); Mean Corpuscular Volume 65.3 fL (80.0-98.0); Monocytes Absolute Auto 1.2 X10*3/uL (0.1-1.2); Monocytes Percent Auto 4.4 % (2-11); Neutrophils Absolute Auto 23.5 x10*3/uL (2.0-8.3); Neutrophils Percent Auto 88.4 % (45-73); Platelet Count 576 X10*3/uL (160-400); Red Cell Distribution Width 26.3 % (11.0-16.0); SCAN SMEAR FLAG 1; White Blood Count 26.5 X10*3/uL (4.8-10.8)
[2024-05-22 12:40] LABS: Hematocrit 57.9 % (42.0-52.0); Red Blood Count 8.87 X10*6/uL (4.60-5.80)
[2024-05-22 13:02] LABS: SLIDE REVIEW VERIFIED
[2024-05-22] MEDS: Midazolam HCl 2 MG/2 ML VIAL 1 MG IVPUSH (13:30)
[2024-05-22] MEDS: fentaNYL citrate/PF 100 MCG/2 ML VIAL 25 MCG IVPUSH (13:30)
[2024-05-22] MEDS: Lidocaine HCl 1 % MPF 30 ML VIAL 10 ML SUBCUT (14:10)
== END 2024-05-22 16:01 | disposition home or self-care (01) ==
LOC: HO.SSS 11:18
PROVIDERS: Radiology Diagnostic Radiology; PCP Internal Medicine; Visit Provider Internal Medicine Nephrology
DX: N17.9 Acute kidney failure, unspecified (principal); R80.9 Proteinuria, unspecified; N40.1 Benign prostatic hyperplasia with lower urinary tract symptoms; N18.31 Chronic kidney disease, stage 3a; N26.9 Renal sclerosis, unspecified; N28.89 Other specified disorders of kidney and ureter; I25.10 Atherosclerotic heart disease of native coronary artery without angina pectoris; I25.5 Ischemic cardiomyopathy; D45 Polycythemia vera; R60.9 Edema, unspecified; Z79.82 Long term (current) use of aspirin; Z79.02 Long term (current) use of antithrombotics/antiplatelets; Z79.85 Long-term (current) use of injectable non-insulin antidiabetic drugs; Z79.899 Other long term (current) drug therapy
CPT/HCPCS: 36415; 50200; 77012; 85025; 88300; 88305; 88313; 88346; 88348; 88350; 99152; J2003; J2250; J3010

== ENCOUNTER → 2024-05-22 13:08 | Outpatient (BNV) | payer MEDICARE, SELFPAY | PROVIDERS: PCP Internal Medicine; Visit Provider Radiology Diagnostic Radiology | DX: N17.9 Acute kidney failure, unspecified (principal) | CPT/HCPCS: 50200; 77012 ==

== ENCOUNTER 2024-05-31 11:52 | Outpatient (REF) | payer MEDICARE, SELFPAY ==
[2024-05-31 12:39] LABS: Basophils Absolute Auto 0.3 X10*3/uL (0.0-0.2); Eosinophils Absolute Auto 0.3 X10*3/uL (0.0-0.4); Eosinophils Percent Auto 1.2 % (0-4); Hemoglobin 16.5 g/dl (14.0-18.0); Imm Gran Abs Auto 0.22 X10*3/uL (0.00-0.03); Imm Gran Pct Auto 0.9 % (0.0-0.4); Lymphocytes Absolute Auto 0.6 X10*3/uL (1.2-4.9); Lymphocytes Percent Auto 2.4 % (20-40); MANUAL DIFF FLAG SCAN; Mean Corpuscular Hemoglobin 18.6 pg (27.0-33.0); Mean Corpuscular Volume 66.6 fL (80.0-98.0); Monocytes Percent Auto 3.9 % (2-11); Neutrophils Absolute Auto 23.4 x10*3/uL (2.0-8.3); Neutrophils Percent Auto 90.6 % (45-73); Platelet Count 539 X10*3/uL (160-400); Red Blood Count 8.86 X10*6/uL (4.60-5.80); Red Cell Distribution Width 26.1 % (11.0-16.0); SCAN SMEAR FLAG 1; White Blood Count 25.8 X10*3/uL (4.8-10.8)
[2024-05-31 13:06] LABS: Anion Gap 14 (12-20); Blood Urea Nitrogen 69 mg/dL (9-16); Calcium 8.2 mg/dL (8.4-10.2); Carbon Dioxide 21 mmol/L (22-29); Chloride 111 mmol/L (96-108); Estimated Glomerular Filt Rate 16; Iron 19 mcg/dL (45-160); Percent Iron Saturation 8 % (15-50); Phosphorus 4.3 mg/dL (2.7-4.5); Potassium 4.8 mmol/L (3.3-5.1); Sodium 141 mmol/L (135-145); Total Iron Binding Capacity 236 mcg/dL (228-428); Unsaturated Iron Binding 217 ug/dL
[2024-05-31 13:07] LABS: Parathyroid Hormone Intact 361.2 pg/mL (8.7-77.1)
[2024-05-31 13:09] LABS: SLIDE REVIEW VERIFIED
[2024-05-31 13:21] LABS: Ferritin 40 ng/mL (20-250); Vitamin D 25-OH Total 15.1 ng/mL (>30)
== END 2024-05-31 11:53 | disposition home or self-care (01) ==
LOC: HO.LAB 11:52
PROVIDERS: Visit Provider Internal Medicine Nephrology
DX: N17.9 Acute kidney failure, unspecified (principal); N18.31 Chronic kidney disease, stage 3a; R80.9 Proteinuria, unspecified
CPT/HCPCS: 36415; 80051; 82306; 82310; 82565; 82728; 83540; 83970; 84100; 84520; 85025

== ENCOUNTER 2024-06-01 15:36 | Outpatient (AMB) | payer MEDICARE, SELFPAY ==
--- NOTE | 2024-06-01 15:45 | HO.NEPHOV ---
Vital Signs 06/01/24 15:48 Height 5 ft 5 in Weight 154 lb 6 oz BMI 25.7 BP 114/70 Blood Pressure Location Rt brachial Position Sitting Pulse 95 Pulse Source Pulse Oximeter Pulse Oximetry (%) 95 Oxygen Delivery Method Room Air Intake Visit Reasons: Biopsy done [facility] [place] Lining Ironer Required: No Accompanied by: Spouse Allergies No Known Allergies Allergy (Verified 06/01/24 15:48) HPI Comments Details: I had the pleasure of seeing Pat in follow up for his ETELVINA on CKD. He has H/O CAD needing PCI. He also has H/O ischemic cardiomyopathy and has been closely followed up by Dr Vizcaino. He had been on anti platelet medication as well as jardiance as well as Entresto. Recently he had diarrhea with development of hyperkalemia as well as ETELVINA. It was discontinued by his quality improvement coordinator (rn) due to hyperkalemia and ETELVINA . He also has been having edema without any other signs of heart failure. Urine studies at that time showed nephrotic range proteinuria. He has H/O multiple episodes of nephritis in the past. He denies hematuria, dysuria, hemoptysis, hemetemesis, melena, sinusitis, recent antibiotics, regular NSAID's, hypercalcemia, new bone pain, H/O malignancies. He continues to have significantly lower GFR . 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 He under went W/U including renal biopsy. He is here for follow up. He was accompanied by his during this visit. He is concerned about his drop in renal function [facility] Medical History (Updated 06/09/24 @ 18:45 by Sridhar Hawkins MD) Ischemic cardiomyopathy Atherosclerosis of [place] coronary artery of [place] heart without angina pectoris Acne rosacea Elevated serum creatinine Primary osteoarthritis of right knee Right hand weakness Onychomycosis of toenail BPH with obstruction/lower urinary tract symptoms Polycythemia vera Surgical History H/O repair of rotator cuff Family History Mother Heart attack Father Colon cancer Social History Alcohol intake: never Patient Tobacco Use Status: Never used Tobacco Review of Systems Const All systems reviewed & are unremarkable except as noted in HPI and below Physical Exam Vital Signs: Last Vital Signs Pulse 95 06/01/24 15:48 BP 114/70 06/01/24 15:48 Pulse Ox 95 06/01/24 15:48 Oxygen Delivery Method Room Air 06/01/24 15:48 BMI result Body Mass Index 25.7 Const General: comfortable and no acute distress Orientation/consciousness: patient oriented x3 HEENT Head: Yes normocephalic Mouth: Normal oral and palatal mucosa present Eyes EOM: EOMs intact bilaterally Neck Neck: Yes supple Resp Auscultation: clear to auscultation bilaterally Cardio Jugular venous distension: no JVD Rate: regular rate GI Palpation (GI): Soft to palpation Auscultation: normal bowel sounds General: Yes no CVA tenderness Back/Spine/Pelvis Back: no CVA tenderness Skin General skin exam: no rashes or lesions noted Neuro General: patient oriented x3 and moves all extremities Extrem General: Yes no pedal edema Results Reviewed Nephrology Results: Hgb 16.5 g/dl (14.0-18.0) 05/31/24 WBC 25.8 X10*3/uL (4.8-10.8) H 05/31/24 Plt Count 539 X10*3/uL (160-400) H 05/31/24 Sodium 141 mmol/L (135-145) 05/31/24 Potassium 4.8 mmol/L (3.3-5.1) 05/31/24 Chloride 111 mmol/L (96-108) H 05/31/24 Carbon Dioxide 21 mmol/L (22-29) L 05/31/24 BUN 69 mg/dL (9-16) H 05/31/24 Creatinine 3.63 mg/dL (0.5-1.4) H 05/31/24 Calcium 8.2 mg/dL (8.4-10.2) L 05/31/24 Phosphorus 4.3 mg/dL (2.7-4.5) 05/31/24 PTH Intact 361.2 pg/mL (8.7-77.1) H 05/31/24 Urine Creatinine 56.10 mg/dL 05/02/24 Protein/Creatinin Ratio 6.70 (<0.2) H 05/02/24 Assessment & Plan Assessment & Plan (1) Acute kidney injury superimposed on stage 3a chronic kidney disease: Code(s): N17.9 - Acute kidney failure, unspecified; N18.31 - Chronic kidney disease, stage 3a Category: Medical (2) Nephrotic range proteinuria: Code(s): R80.9 - Proteinuria, unspecified Category: Medical (3) Vitamin D deficiency: Code(s): E55.9 - Vitamin D deficiency, unspecified Category: Medical Plan Pat has CKD H/O recurrent nephritis as well as vascular disease. He had ETELVINA likely due to development of tubular injury due to diarrhea while taking Entresto and Jardiance. His urine output is good. He recently did not have any recent vascular procedures. Cholesterol embolism is unlikely even though he has been on blood thinner. 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 His ETELVINA has been resolving . He had some edema and has been initaited on diuretics. He is on Entresto and Jardiance. He does not take NSAID's. He does not need renal replacement now but should remain on a low K diet. I discussed with him that his renal function can potentially worsen with time and will need renal replacement at that time. I started him on Vitamin D as well. F/U labs ordered. All questions answered and follow up given Orders: Orders Creatinine 3 Weeks N17.9 - Acute kidney failure, unspecified, N18.31 - Chronic kidney disease, stage 3a, R80.9 - Proteinuria, unspecified Blood Urea Nitrogen 3 Weeks N17.9 - Acute kidney failure, unspecified, N18.31 - Chronic kidney disease, stage 3a, R80.9 - Proteinuria, unspecified Electrolytes 3 Weeks N17.9 - Acute kidney failure, unspecified, N18.31 - Chronic kidney disease, stage 3a, R80.9 - Proteinuria, unspecified Medications: New cholecalciferol (vitamin D3) 1,250 mcg PO QWEEK 14 caps 1RF Coding Level of Care Code Est Pt Level 4 (24996) Diagnoses Acute kidney injury superimposed on stage 3a chronic kidney disease N17.9; N18.31 Nephrotic range proteinuria R80.9 Vitamin D deficiency E55.9
[2024-06-01 15:48] VITALS: BP 114/70; PULSE 95; O2SAT 95; BMI 25.7
== END 2024-06-01 16:12 | disposition home or self-care (01) ==
LOC: HO.HKA 15:37
PROVIDERS: PCP Internal Medicine; Visit Provider Internal Medicine Nephrology
DX: N17.9 Acute kidney failure, unspecified (principal); N18.31 Chronic kidney disease, stage 3a; R80.9 Proteinuria, unspecified; E55.9 Vitamin D deficiency, unspecified
CPT/HCPCS: 99214

== ENCOUNTER → 2024-06-01 15:36 | Outpatient (BNVA) | payer MEDICARE, SELFPAY | PROVIDERS: PCP Internal Medicine; Visit Provider Internal Medicine Nephrology | DX: N17.9 Acute kidney failure, unspecified (principal); N18.31 Chronic kidney disease, stage 3a; R80.9 Proteinuria, unspecified; E55.9 Vitamin D deficiency, unspecified | CPT/HCPCS: 99212 ==

== ENCOUNTER 2024-06-26 15:10 | Outpatient (REF) | payer MEDICARE, SELFPAY ==
[2024-06-26 17:06] LABS: Anion Gap 16 (12-20); Blood Urea Nitrogen 90 mg/dL (9-16); Carbon Dioxide 23 mmol/L (22-29); Chloride 104 mmol/L (96-108); Estimated Glomerular Filt Rate 12; Potassium 4.2 mmol/L (3.3-5.1); Sodium 139 mmol/L (135-145)
--- OUTSIDE RECORDS SUMMARY | 2024-06-26 18:07 | XMS_ITS | Encounter Summary ---
Author Organization [facility] [place] Address [address] [place] [address] Phone Care Team Providers Care Supervisor Finishing Name Role Phone Sherman Miller MD Primary Care Provider [phone] Tate Moulton MD Unavailable Tanisha Perkins MD Unavailable [phone] Harsh Ross MD Unavailable [phone] Suellen Mccann MD Unavailable [phone] Chante Vizcaino MD Unavailable [phone] Encounter Details Date Type Department Care Team (Late st Contact Info) Description 05/29/2024 Orders Only [place] [address] [place] [address] Provider, MD Eduardo [address] [place] [address] Social History Tobacco Use Types Packs/Day [...] Care Team (Late st Contact Info) Description 07/02/2024 11:30 AM EDT Office Visit [address] [place] [address] Ga Zapata NP [address] [place] [address], [address] [place] [address] documented as of this encounter Procedures Procedure Name Priority Date/Time Associated Diagnosis Comments OUTSIDE LAB Routine 05/02/2024 9:45 AM EST documented in this encounter Results * Outside Lab (05/02/2024 9:45 AM EST) Historical Provider LAB BLOOD ORDERAB LES documented in this encounter Visit Diagnoses Not on filedocumented in this encounter Additional Health Concerns Assessment Noted Time PHQ-2 Depression Total Score: 0 02/25/20 23 2:54 PM EST documented as of this encounter Care Teams Supervisor Finishing Relationship Specialty Start Date End Date Sherman Miller MD [address] [place] [address], [address] [place] [address] PCP - General Internal Medicine 05/15/18 Tate Moulton MD [address] [place] [address], [address] [place] [address] [email or web address] 06/19/18 Tanisha Perkins MD [address] [place] [email or web address] Oncology 06/19/18 Harsh Ross MD [facility] [address] [address] Orthopedic Surgery 10/15/19 Su[facility] Mccann MD [facility] [address] [address] Gastroenterology 10/23/20 Chante Vizcaino MD [address] [place] [id number] [email or web address] Cardiology 11/12/22 documented as of this encounter Additional Source Comments The information contained in this document represents components of the legal health record. It is not the complete legal health record.[facility] [place] [facility]
--- OUTSIDE RECORDS SUMMARY | 2024-06-26 18:07 | XMS_ITS | Clinical Summary ---
Author Organization [facility] Facility Address [address] [address] Care Team Providers Care Exercise Specialist Name Role Phone Unavailable Primary Care Provider [...] Health Maintenance Due Date Last Done Comments Influenza Vaccine (Season Ended) 2024 12/22/2021, 01/05/2017, 12/27/2015, Additional history exists Pneumococcal Vaccine: 50+ Years Completed 01/05/2017, 12/27/2015 Hepatitis B Vaccine Aged Out No longe r eligible based on patient's age to complete this topic Insurance [facility]
--- OUTSIDE RECORDS SUMMARY | 2024-06-26 18:07 | XMS_ITS | Encounter Summary ---
Author Organization [facility] Address [address] [place] [address] Phone Care Team Providers Care Histotechnologist Supervisor Name Role Phone Sherman Miller MD Primary Care Provider [phone] Tate Moulton MD Unavailable Tanisha Perkins MD Unavailable [phone] Harsh Ross MD Unavailable [phone] Suellen Mccann MD Unavailable [phone] Chante Vizcaino MD Unavailable [phone] Reason for Referral * Consultation (Within 2 weeks) - Authorized Specialty Diagnoses / Procedures Referred By Nona leon Referred To Contact Diagnoses [facility] Sherman Miller MD [address] [facility], [address] [place] [address] Email: Angelika Rodriguez MD [address] [place] [address] Referral ID Status Reason Start Date Expiration Date V isits Requested Visits Authorized [id number] Authorized 09/04/2023 09/03/2024 6 6 Encounter Details Date Type Department Care Team (Latest Contact Info) Description 05/11/2024 Transcribe Orders [address] [place] [address] Christie William [address] [place] [address] [email or web address] [facility] (Primary Dx) Social History Tobacco Use Types [...] Description 07/02/2024 11:30 AM EDT Office Visit [facility] [address] [place] [address] Ga Zapata NP [address] [facility], [address] [place] [address] Scheduled Referrals Name Type Priority Associated Diagnoses Order Schedule Ambulatory referral to External Provider Outpatient Referral Routine [facility] Ordered: 05/13/2024 documented as of this encounter Visit Diagnoses Diagnosis [facility]- Primary Other mucopurulent conjunctivitis documented in this encounter Additional Health Concerns Assessment Noted Time PHQ-2 Depression Total Score: 0 12/21/20 23 2:54 PM EST documented as of this encounter Care Teams Histotechnologist Supervisor Relationship Specialty Start Date End Date Sherman Miller MD [address] [place] [address], [address] [place] [address] [email or web address] PCP - General Internal Medicine 05/15/18 Tate Moulton MD [address] [place] [address], [address] [place] [address] [email or web address] Urology 06/19/18 Tanisha Perkins MD [address] [place] [id number] [email or web address] Oncology 06/19/18 Harsh Ross MD [address] [facility] [address] [place] [address] Orthopedic Surgery 10/15/19 Suellen Mccann MD [address] [facility] [address] [place] [address] Gastroenterology 10/23/20 Chante Vizcaino MD [address] [place] [phone] [email or web address] Cardiology 11/12/22 documented as of this encounter Additional Source Comments The information contained in this document represents components of the legal health record. It is not the complete legal health record.[facility]
--- OUTSIDE RECORDS SUMMARY | 2024-06-26 18:07 | XMS_ITS | Clinical Summary ---
Author Organization [facility] Address [address] [place] [address] Care Team Providers Care Bar Assistant Name Role Phone Sherman Miller MD Primary Care Provider [phone] Allergies No known active allergies Medications Medication [...] 05/26/1967 Shingrix-Zoster Vaccine (1 of 2) 05/26/1967 Fall Risk Assessment 2013 COVID-19 Vaccine (2 [...] age to complete this topic Care Teams Bar Assistant Relationship Specialty Start Date End Date Sherman Miller MD [address] [place] [address] PCP - General Internal Medicine 10/10/19
--- OUTSIDE RECORDS SUMMARY | 2024-06-26 18:07 | XMS_ITS | Encounter Summary ---
Author Organization [facility] Address [address] [place] [address] Phone Care Team Providers Care It Program Engagement Director Name Role Phone Sherman Miller MD Primary Care Provider [phone] Tate Moulton MD Unavailable Tanisha Perkins MD Unavailable [phone] Harsh Ross MD Unavailable Suellen Mccann MD Unavailable [phone] Chante Vizcaino MD Unavailable [phone] Encounter Details Date Type Department Care Team (Late st Contact Info) Description 2024 Orders Only [address] [place] [address] Provider, MD Eduardo [address] [place] [address] Social History Tobacco Use Types Packs/Day [...] Description 07/02/2024 11:30 AM EDT Office Visit [address] [place] [address] Ga Zapata NP [address] [place] [address], [address] [place] [address] documented as of this encounter Procedures Procedure Name Priority Date/Time Associated Diagnosis Comments OUTSIDE LAB Routine 05/02/2024 3:04 PM EST documented in this encounter Results * Outside Lab (05/02/2024 3:04 PM EST) Historical Provider LAB BLOOD ORDERAB LES documented in this encounter Visit Diagnoses Not on filedocumented in this encounter Additional Health Concerns Assessment Noted Time PHQ-2 Depression Total Score: 0 02/25/20 23 2:54 PM EST documented as of this encounter Care Teams It Program Engagement Director Relationship Specialty Start Date End Date Sherman Miller MD [address] [place] [address], [address] [place] [address] PCP - General Internal Medicine 05/15/18 Tate Moulton MD [address] [place] [address], [address] [place] [address] [email or web address] Urology 06/19/18 Tanisha Perkins MD [address] [place] [phone] [email or web address] Oncology 06/19/18 Harsh Ross MD [facility] [address] [address] Orthopedic Surgery 10/15/19 Suellen Mccann MD [facility] [address] [address] Gastroenterology 10/23/20 Chante Vizcaino MD [address] [place] [phone] [email or web address] Cardiology 11/12/22 documented as of this encounter Additional Source Comments The information contained in this document represents components of the legal health record. It is not the complete legal health record.[facility]
--- OUTSIDE RECORDS SUMMARY | 2024-06-26 18:07 | XMS_ITS | Clinical Summary ---
Author Organization [facility] Address [address] [place] [address] Phone Care Team Providers Care Rangeland Management Specialist Name Role Phone Sherman Miller MD Primary Care Provider [phone] Tate Moulton MD Unavailable Tanisha Perkins MD Unavailable [phone] Harsh Ross MD Unavailable Suellen Mccann MD Unavailable [phone] Chante Vizcaino MD Unavailable [phone] Allergies No known active allergies Medications [...] Take 500 mg by mouth daily. Active albuterol 90 mcg/actuation inhalerIndication s:Wheezing Inhale 2 puffs into the lungs every 6 (six) hours as needed for wheezing. 18 g 1 05/17/2024 Active torsemide 40 mg Tab Take 40 mg by mouth daily. Active furosemide (LASIX) 40 MG tablet Take 1 tablet by mouth every morning. 05/08/2024 Active benzonatate (TESSALON) 100 MG capsule Take 100 mg by mouth 3 (three) times a day as needed for cough. 05/09/2024 06/18/2024 Discontinued (No longer taking) azithromycin (ZITHROMAX) 250 MG tabletIndications :Acute bacterial bronchitis Take 1 tablet (250 mg total) by mouth as directed. Take 2 tablets on day 1 followed by 1 tablet daily for 4 days 6 tablet 05/17/2024 06/18/2024 Discontinued (No longer taking) guaiFENesin (MUCINEX) 600 mg ER biphasic tabletIndications :Acute bacterial bronchitis Take 1 tablet (600 mg total) by mouth 2 (two) times a day. 20 tablet 2 05/17/2024 06/18/2024 Discontinued (No longer taking) Active Problems Problem Noted Date Diagnosed Date History of nephritis 04/16/2024 Overview (04/16/2024): Treated with steroids when he was 12 years old Assessment & Plan (06/18/2024 2:10 PM EDT): Recurrent sx winter, biopsy reassuring with Dr Shin. Put on high dose VitD per pt. Ischemic cardiomyopathy 02/22/2023 Overview (02/22/2023): After MRI [...] leave this up to cardiology. Atherosclerosis of [place] co ronary artery of [place] heart without angina pectoris 11/12/2022 Overview (11/12/2022): Non-ST elevation [place] October 2022, 2 drug-eluting stents to the [...] compression. He will follow-up as scheduled with [facility]. Polycythemia vera 06/19/2018 Overview (02/25/2023): Therapeutic phlebotomies at [facility] Assessment & Plan (04/10/2024 12:02 PM EST): Hemoglobin has gone up a little bit. He will follow-up as planned with hematology next month. He is likely going to be due for another phlebotomy. Assessment & Plan (02/25/2023 10:32 AM EST): Doing well, next due to have CBC checked at [facility] in about 6 weeks. Assessment & Plan (02/24/2022 10:45 AM EST): Clinically is doing well. Follow-up as planned with hematology Assessment & Plan (10/23/2020 3:44 PM EDT): Clinically is doing well. 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 Goal is to maintain hemoglobin less than [...] Encounters Date Type Department Care Team Description 06/19/2024 Telephone [facility] [address] [place] [address] Sherman Miller MD Imaging Follow Up (Recent chest xray) 06/19/2024 Telephone [facility] [address] [place] [address] Sherman Miller MD Results (Follow up results); urgent appointment 06/18/2024 2:23 PM EDT - 06/18/2024 11:59 PM EDT Hospital Encounter [facility] [address] [place] [address] [place] [address] Rigoberto Schuster MD Discharge Disposition: Home or Self Care 06/18/2024 2:15 PM EDT - 06/18/2024 2:22 PM EDT Hospital Encounter [facility], X-Ray - [address] [place] [address] Rigoberto Schuster MD Discharge Disposition: Home or Self Care 06/18/2024 1:45 PM EDT Office Visit [address] [place] [address] Rigoberto Schuster MD History of nephritis (Primary Dx); Acute pulmonary edema; Bilateral leg edema; Acute kidney injury; Dyspnea, unspecified type 06/18/[address] [place] [address] Sherman Miller MD Triage (Red+SOB and Knee edema) 06/14/2024 Orders Only [address] [place] [address] Eduardo Carver MD 05/29/2024 Orders [place] [address] [place] [address] Eduardo Carver MD 2024 Orders Only [address] [place] [address] Eduardo Carver MD 05/23/[address] [place] [address] Lidia Figueroa LPN Cough 05/17/2024 1:00 PM EDT Office Visit [address] [place] [address] Rigoberto Schuster MD Acute bacterial bronchitis (Primary Dx); Wheezing 05/11/[address] [place] [address] Inna Solis LPN Influenza 05/11/2024 Transcribe Orders [address] [place] [address] Christie William [place] eye (Primary Dx) 04/11/[address] [place] [address] Sherman Miller MD Referral 04/10/2024 12:01 PM EST - 04/10/2024 11:59 PM EST Hospital Encounter [facility] [address] [place] [address] [place] [address] Sherman Miller MD Discharge Disposition: Home or Self Care 04/10/2024 11:30 AM EST Office Visit [address] [place] [address] Sherman Miller MD Acute kidney injury (Primary Dx); BPH with obstruction/lower urinary tract symptoms; Ischemic cardiomyopathy; Polycythemia vera 04/06/2024 Orders Only [address] [place] [address] Sherman Miller MD Acute kidney injury (Primary Dx) 04/06/[address] [place] [address] Sherman Miller MD Triage (Yellow - High Potassium) 04/05/2024 12:27 PM EST - 04/05/2024 11:59 PM EST Hospital Encounter [facility] [address] [place] [address] Sherman Miller MD Discharge Disposition: Home or Self Care 04/02/[address] [address] Sherman Miller MD Referral (Kidney long term care phlebotomist ); question 03/30/[address] [place] [address] Candace Stafford RN Results; Needs ED eval 03/29/2024 3:32 PM EST - 03/29/2024 11:59 PM EST Hospital Encounter [facility] [address] [place] [address] [place] [address] Ga Zapata NP Discharge Disposition: Home or Self Care 03/29/2024 Telephone [facility] [address] [place] [address] Jess Rausch PA-C Test Results (After hours call) 03/28/2024 3:00 PM EST Office Visit [address] [place] [address] Ga Zapata NP Diarrhea, unspecified type (Primary Dx) from Last 3 Months Immunizations Name Administration [...] No Known Problems Daughter 1 teacher for tx af No Known Problems Daughter 2 teacher, [facility] Colon cancer Father Aneurysm Mother No Known [...] Sign Reading Time Taken Comments Blood Pressure 114/70 06/18/2024 1:53 PM EDT Pulse 86 06/18/2024 1:53 PM EDT Temperature 36.7 ??C (98.1 ??F) 06/18/2024 1:53 PM ED T Respiratory Rate 18 11/12/2022 8:21 AM EDT Oxygen Saturation 96% 06/18/2024 1:53 PM EDT Inhaled Oxygen Concentration - - Weight 68.3 kg (150 lb 9.6 oz) 06/18/2024 1:53 P M EDT Height 164.4 cm (5' 4.72 ) 06/18/2024 1:53 PM ED T Body Mass Index 25.28 06/18/2024 1:53 PM EDT Plan of Treatment Upcoming Encounters Date Type Department Care Team (Late st Contact Info) Description 07/02/2024 11:30 AM EDT Office Visit [facility] [address] [place] [address] Ga Zapata NP [address] [facility] [place] [address] [email or web address] Health Maintenance Due Date Last Done Comments Adult Td,Tdap Booster 1950 COVID-19 VACCINE ( season) 2023 12/17/2022, 01/05/2022, 02/02/2021, Additional history exists DEPRESSION SCREENING 02/25/2024 02/24/2023 HEPATITIS C SCREENING Completed 10/15/2019 PNEUMOCOCCAL VACCINES (50+ years) Completed 01/13/2023, 01/05/2017, 12/27/2015 RSV VACCINE Completed 03/05/2023 SMOKING STATUS SCREENING (Once After 26 Yrs) Completed 06/18/2024 HEPATITIS A VACCINES Aged Out No long er eligible based on patient's age to complete this topic HIB VACCINES Aged Out No longer eligi ble based on patient's age to complete this topic MENINGOCOCCAL VACCINES (ACWY) Aged Out No longer eligible based on patient's age to complete this topic Medical Devices Not on file Procedures Procedure Name Priority Date/Time Associated Diagnosis Comments URINE SEDIMENT Routine 06/18/2024 2:45 PM EDT URINALYSIS W/REFLEX URINE CULTURE Routine 06/18/2024 2:45 PM EDT History of nephritis Acute kidney injury BASIC METABOLIC PANEL Routine 06/18/2024 2:42 PM EDT Acute kidney injury MAGNESIUM Routine 06/18/2024 2:42 PM EDT Acute kidney injury XR CHEST PA AND LATERAL 2 VIEWS Urgent/patient waiting 06/18/2024 2:29 PM EDT Acute pulmonary edema Dyspnea, unspecified type OUTSIDE IMAGING Routine 05/22/2024 4:44 PM EDT OUTSIDE LAB Routine 05/02/2024 3:04 PM EST OUTSIDE LAB Routine 05/02/2024 9:45 AM EST BASIC METABOLIC PANEL Routine 04/10/2024 12:14 PM [...] 03/29/2024 3:51 PM EST Diarrhea, unspecified type HEPATITIS C ANTIBODY, QUALITATIVE Routine 10/15/2019 10:49 AM EDT Encounter for Medicare annual wellness exam from Last 3 Months or Most Recently Relevant to Health Maintenance Results * (ABNORMAL) Urinalysis w/reflex Urine Culture (06/18/2024 2:45 PM EDT) COLOR Yellow Yellow [facility] CLARITY Clear [facility] GLUCOSE Negative Negative [facility] BILI Negative Negative [facility] KETONES Negative Negative [facility] SPECIFIC GRAVITY 1.025 1.005 - 1.030 [facility] BLOOD 2+(A) Negative [facility] PH 6.0 5.0 - 8.0 [facility] Protein-UA 3+(A) Negative [facility] NITRITE Negative Negative [facility] Leukocyte esterase, ur Negative Negative [facility] Urine (Urine) 06/18/2024 2:4 5 PM EDT 06/18/2024 2:49 PM EDT Rigoberto Schuster MD URINE ORDERABLES Performing Organization Address [facility] Co de Phone Number [address] [address] * (ABNORMAL) Urine sediment (06/18/2024 2:45 PM EDT) WBC 0-4(A) NONE SEEN /hpf [facility] RBC 21-49(A) NONE SEEN /hpf [facility] URINE EPITHELIAL 0-4(A) NONE SEEN [facility] MUCUS Trace(A) NONE SEEN /hpf [facility] BACTERIA Trace(A) NONE SEEN /hpf [facility] 06/18/2024 2:45 PM EDT 06/18/2024 2:49 PM EDT Rigoberto Schuster MD URINE ORDERABLES Performing Organization Address [facility] Co de Phone Number [address] [address] * Magnesium (06/18/2024 2:42 PM EDT) MAGNESIUM 2.1 1.6 - 2.6 mg/dL [facility] Blood 06/18/2024 2:42 PM EDT 06/18/2024 2:44 PM EDT Rigoberto Schuster MD LAB BLOOD ORDERABLES Performing Organization Address [facility] Co de Phone Number [address] [address] * (ABNORMAL) Basic metabolic panel (06/18/2024 2:42 PM EDT) Only the most recent of4 resultswithin the time period is included. SODIUM 139 133 - 146 mmol/L [facility] CHLORIDE 106 96 - 108 mmol/L [facility] POTASSIUM 5.2(H) 3.3 - 5.1 mmol/L [facility] CO2 22 21 - 35 mmol/L [facility] BUN 71(H) 6 - 19 mg/dL [facility] CREATININE 4.70(H) 0.5 - 1.5 mg/dL [facility] GLUCOSE 82 70 - 99 mg/dL [facility] CALCIUM 8.3(L) 8.4 - 10.3 mg/dL [facility] EGFR 12(L) >59 mL/min/1.7 3m2 [facility] Comment:Estimated glomerular filtration rate calculated using the CKD-EPI refit equation. ANION GAP 16 10 - 20 mmol/L [facility] Blood 06/18/2024 2:42 PM EDT 06/18/2024 2:44 PM EDT Rigoberto Schuster MD LAB BLOOD ORDERABLES Performing Organization Address City/State/[facility] Co de Phone Number [address] [address] * XR CHEST PA AND LATERAL 2 VIEWS (06/18/2024 2:29 PM EDT) Anatomical Region Laterality Modality Chest Computed Radiogr aphy 06/18/2024 2:32 PM EDT Impressions 06/18/2024 2:33 PM EDT Mild to moderate pulmonary edema with trace bilateral pleural effusions. Narrative 06/18/2024 2:33 PM EDT XR CHEST PA AND LATERAL 2 VIEWS Referring clinician's provided indication for this examination in [facility]: Dyspnea (Shortness of Breath) COMPARISON: None available FINDINGS: Devices/Tubes/Lines: None. Lungs: Prominent appearance to the central pulmonary vasculature. Perihilar peribronchial opacities. Right greater than left basilar airspace opacification. Pleura: Trace bilateral pleural effusions. No pneumothoraces. Heart/Mediastinum: Normal size and contour of the cardiomediastinal silhouette. Bones/Soft Tissues: Multilevel spondylosis. Dextroconvex curvature of the thoracic spine. Procedure Note Liz Altamirano MD - 06/18/2024 XR CHEST PA AND LATERAL 2 VIEWS Referring clinician's provided indication for this examination in [facility]:Dyspnea (Shortness of Breath) COMPARISON: None available FINDINGS: Devices/Tubes/Lines: None. Lungs: Prominent appearance to the central pulmonary vasculature.Perihilar peribronchial opacities. Right greater than left basilarairspace opacification. Pleura: Trace bilateral pleural effusions. No pneumothoraces. Heart/Mediastinum: Normal size and contour of the cardiomediastinalsilhouette. Bones/Soft Tissues: Multilevel spondylosis. Dextroconvex curvature of thethoracic spine. IMPRESSION: Mild to moderate pulmonary edema with trace bilateral pleural effusions. Rigoberto Schuster MD IMG XR CHEST * Outside Imaging Report Only (05/22/2024 4:44 PM EDT) Historical Provider IMG XR CHEST * Outside Lab (05/02/2024 3:04 PM EST) Only the most recent of2 resultswithin the time period is included. Historical Provider LAB BLOOD ORDERAB LES * (ABNORMAL) LFTs (hepatic panel) (03/29/2024 3:51 PM EST) ALKALINE PHOSPHATASE 146(H) 39 - 117 U/L [facility] TOTAL BILIRUBIN 0.4 0.0 - 1.2 mg/dL [facility] DIRECT BILIRUBIN <0.2 0 - 0.3 mg/dL [facility] Bilirubin (Indirect) NOT CALCULATED 0 - 1.5 mg/dL [facility] AST 15 0 - 37 U/L [facility] ALT 8 0 - 40 U/L [facility] TOTAL PROTEIN 6.3(L) 6.5 - 8.0 g/dL [facility] ALBUMIN 3.3(L) 3.9 - 4.8 g/dL [facility] GLOBULIN 3.0 1 - 4.8 g/dL [facility] A/G Ratio 1.10 1.00 - 4.80 RATIO [facility] Blood 03/29/2024 3:51 PM EST 03/29/2024 6:59 PM EST [employer] OFFICER LAB BLOOD ORDERABL ES [facility] [address] [place] [address] * (ABNORMAL) CBC and differential (03/29/2024 3:51 PM EST) WBC 26.90(H) 4.00 - 11.00 K/uL [facility] RBC 8.72(H) 4.50 - 5.90 M/uL [facility] HGB 15.8 13.5 - 17.5 g/dL [facility] HCT 59.2(H) 41.0 - 53.0 % [facility] PLT 576(H) 150 - 450 K/uL [facility] MCV 67.9(L) 80.0 - 100.0 fL [facility] MCH 18.1(L) 27.0 - 31.0 pg [facility] MCHC 26.7(L) 32.0 - 36.0 g/dL [facility] RDW 22.3(H) 11.5 - 14.5 % [facility] MPV 10.2 8.4 - 12.0 fL [facility] NRBC 0.00 0.00 /100 WBCs [facility] ABSOLUTE NRBC 0.00 0.00 K/uL [facility] DIFF METHOD Auto [facility] NEUTS 87.2(H) 48.0 - 76.0 % [facility] LYMPHS 4.4(L) 18.0 - 41.0 % [facility] MONOS 3.6(L) 4.0 - 11.0 % [facility] EOS 3.7 0.0 - 5.0 % [facility] BASOS 0.4 0.0 - 1.5 % [facility] Granulocytes, immature (%) 0.7 0.0 - 0.9 % [facility] ABSOLUTE NEUTS 23.44(H) 1.92 - 7.60 K/uL [facility] ABSOLUTE LYMPHS 1.18 0.72 - 4.10 K/uL [facility] ABSOLUTE MONOS 0.96 0.16 - 1.10 K/uL [facility] ABSOLUTE EOS 1.00(H) 0.00 - 0.50 K/uL [facility] ABSOLUTE BASOS 0.12 0.00 - 0.15 K/uL [facility] Granulocytes, immature 0.20(H) 0.00 - 0.09 K/uL [facility] Blood 03/29/2024 3:51 PM EST 03/29/2024 6:59 PM EST Ga Zapata NP LAB BLOOD ORDERABL ES Performing Organization Address City/[facility]/ZIP Co de Phone Number [address] [address] * Lipase (03/29/2024 3:51 PM EST) LIPASE 42 16 - 63 U/L [facility] Blood 03/29/2024 3:51 PM EST 03/29/2024 6:59 PM EST Ga Zapata NP LAB BLOOD ORDERABL ES Performing Organization Address [facility] Co de Phone Number [address] [address] * Hepatitis C antibody, qualitative (10/15/2019 10:49 AM EDT) HCV NON-REACTIV E NON-REACTI VE [facility] Blood 10/15/2019 10:4 9 AM EDT 10/15/2019 11:03 AM EDT Sherman Miller MD LAB BLOOD ORDERABL ES Performing Organization Address City/[facility]/ZIP Co de Phone Number [address] [address] from Last 3 Months or Most Recently Relevant to Health Maintenance Care Teams Rangeland Management Specialist Relationship Specialty Start Date End Date Sherman Miller MD [address] [place] [address], [address] [place] [address] [email or web address] PCP - General Internal Medicine 05/15/18 Tate Moulton MD [address] [place] [address], [address] [place] [id number] [email or web address] 06/19/18 Tanisha Perkins MD [address] [place] [phone] [email or web address] Oncology 06/19/18 Harsh Ross MD [address] [address] Orthopedic Surgery 10/15/19 Suellen Mccann MD [address] [facility] [address] [address] Gastroenterology 10/23/20 Chante Vizcaino MD [address] [place] [phone] Cardiology 11/12/22 Additional Source Comments The information contained in this document represents components of the legal health record. It is not the complete legal health record.[facility]
--- OUTSIDE RECORDS SUMMARY | 2024-06-26 18:07 | XMS_ITS | Clinical Summary ---
Author Organization [employer] Address [address] [place] [address] [address] [place] [address] Care Team Providers Care Tax Appraiser Name Role Phone Sherman Miller MD Primary Care Provider [phone] Allergies No known active allergies Medications Aspirin [...] 2023, LVEF 40 to 45%. Atherosclerosis of [place] co ronary artery of [place] heart without angina pectoris 11/12/2022 Overview (03/08/2024): Non-ST elevation [place] October 2022, 2 drug-eluting stents to the LAD BPH with obstruction/lower urinary tract symptom s 06/19/2018 Polycythemia vera 06/19/2018 Overview (03/08/2024): Therapeutic phlebotomies at [facility] Encounters Date Type Department Care Team Description 05/16/2024 Telephone [facility] MEDICAL [address] [place] [address] Sherman Miller MD medication questions from Last 3 Months Social History Tobacco [...] Due Date Last Done Comments Depression Screening 1950 Lipid Panel 1950 SDOH Screening 1950 Alcohol/Substance Use Screening 1960 Hepatitis C Screening 1966 Zoster Vaccines (1 of 2) 1998 DTaP/Tdap/Td Vaccines (1 - Tdap) 03/04/2006 03/03/2006 RSV Patients and Patients Aged 60 years or older (1 - 1-dose 75+ series) 05/26/2023 COVID-19 Vaccine (2023- season) 2023 12/17/2022, 01/05/2022, 02/02/2021, Additional history [...] patient's age to complete this topic Insurance [employer] [place] [employer] PREFERRED [employer] MED[employer] [place] [employer] PREFERRED [employer]IME [facility] [place] Care Teams Tax Appraiser Relationship Specialty Start Date End Date Sherman Miller MD [address] [place] [address], [address] [place] [address] PCP - General Internal Medicine 12/29/23
--- OUTSIDE RECORDS SUMMARY | 2024-06-26 18:07 | XMS_ITS | Encounter Summary ---
Author Organization [facility] Address [address] [place] [address] Phone Care Team Providers Care Eap Consultant Name Role Phone Sherman Miller MD Primary Care Provider [phone] Tate Moulton MD Unavailable Tanisha Perkins MD Unavailable [phone] Harsh Ross MD Unavailable Suellen Mccann MD Unavailable [phone] Chante Vizcaino MD Unavailable [phone] Reason for Visit * Reason Onset Date Comments Referral 04/11/2024 Encounter Details Date Type Department Care Team (Late st Contact Info) Description 04/11/2024 Telephone [employer] [facility] [address] [place] [phone] Sherman Miller MD [address] [facility] [place] [address] [email or web address] Referral Social History Tobacco Use Types Packs/Day [...] Lissette Viera - 04/11/2024 2:25 PM EST [facility] PEN Top Smart Phrases: Referral Request Caller stated this is urgent and if an insurance authorization is not received the pt will have to be rescheduled. 1. Name of the office where the patient has been seen/requests to be seen: [facility] 2. Reason for referral/specialist appointment and [...] referral authorization (enter n/a if not available): [id number] 6. Number of visits requested for referral: 6 7. Fax number of specialist office to send referral authorization: [phone] [employer] Life Skills Educator (Please do not reply to this user; this inbox is not monitored.) Thank you. documented in this encounter Plan of Treatment Upcoming Encounters Date Type Department Care Team (Late st Contact Info) Description 07/02/2024 11:30 AM EDT Office Visit [address] [address] Ga Zapata NP [address] [facility], [address] [place] [address] [email or web address] documented as of this encounter Visit Diagnoses Not on filedocumented in this encounter Additional Health Concerns Assessment Noted Time PHQ-2 Depression Total Score: 0 02/25/20 23 2:54 PM EST documented as of this encounter Care Teams Eap Consultant Relationship Specialty Start Date End Date Sherman Miller MD [address] [place] [address], [address] [place] [address] [email or web address] PCP - General Internal Medicine 05/15/18 Tate Moulton MD [address] [place] [address], [address] [place] [address] [email or web address] 06/19/18 Tanisha Perkins MD [address] [place] [phone] [email or web address] Oncology 06/19/18 Harsh Ross MD [facility] [address] [facility] [address] [place] [address] Orthopedic Surgery 10/15/19 Suellen Mccann MD [address] [address] Gastroenterology 10/23/20 Chante Vizcaino MD [address] [place] [address] [email or web address] Cardiology 11/12/22 documented as of this encounter Additional Source Comments The information contained in this document represents components of the legal health record. It is not the complete legal health record.[facility]
--- OUTSIDE RECORDS SUMMARY | 2024-06-26 18:07 | XMS_ITS | Encounter Summary ---
Author Organization [facility] Address [address] [place] [address] Phone Care Team Providers Care Remote Sensing Technician Name Role Phone Sherman Miller MD Primary Care Provider [phone] Tate Moulton MD Unavailable Tanisha Perkins MD Unavailable [phone] Harsh Ross MD Unavailable Suellen Mccann MD Unavailable [phone] Chante Vizcaino MD Unavailable [phone] Encounter Details Date Type Department Care Team (Late st Contact Info) Description 06/14/2024 Orders Only [place] [address] [place] [address] Provider, MD Eduardo [address] [place] [address] Social History Tobacco Use Types Packs/Day [...] Description 07/02/2024 11:30 AM EDT Office Visit [address] [place] [address] Ga Zapata NP [address] [place] [address], [address] [place] [address] documented as of this encounter Procedures Procedure Name Priority Date/Time Associated Diagnosis Comments OUTSIDE IMAGING Routine 05/22/2024 4:44 PM EDT documented in this encounter Results * Outside Imaging Report Only (05/22/2024 4:44 PM EDT) Historical Provider IMG XR CHEST documented in this encounter Visit Diagnoses Not on filedocumented in this encounter Additional Health Concerns Assessment Noted Time PHQ-2 Depression Total Score: 0 02/25/20 23 2:54 PM EST documented as of this encounter Care Teams Remote Sensing Technician Relationship Specialty Start Date End Date Sherman Miller MD [address] [place] [address], [address] [place] [address] PCP - General Internal Medicine 05/15/18 Tate Moulton MD [address] [place] [address], [address] [place] [address] [email or web address] Urology 06/19/18 Tanisha Perkins MD [address] [place] [phone] [email or web address] Oncology 06/19/18 Harsh Ross MD [facility] [address] [address] Orthopedic Surgery 10/15/19 Suellen Mccann MD [facility] [address] [address] Gastroenterology 10/23/20 Chante Vizcaino MD [address] [place] [address] [email or web address] Cardiology 11/12/22 documented as of this encounter Additional Source Comments The information contained in this document represents components of the legal health record. It is not the complete legal health record.[facility]
--- OUTSIDE RECORDS SUMMARY | 2024-06-26 18:07 | XMS_ITS | Clinical Summary ---
Author Organization [facility] Address [address] [place] [address] Phone Care Team Providers Care Feed Handler Name Role Phone Sherman Miller MD Primary Care Provider [phone]- [phone] Medications finasteride (PROSCAR) 5 mg tablet Take [...] mouth 1 (one) time each day. Active iy1-tcz-iky-cod liver-vit A-D3 240-1,000 mg capsule Take 1 [...] History Medical History Date Comments Heart attack (CMS/HCC V24, CMS/HCC V28) DX:Heart attack (HCC) Social History Tobacco Use [...] Modern a risk series) 05/14/2020 04/16/2020, 03/19/2020 Cholesterol Screening (Lipid Panel) 02/07/2022 Depression Screening 02/07/2022 Falls Risk Assessment 02/07/2022 Hepatitis C Screening 02/07/2022 Social Influencers of Health Screening 02/07/2022 RSV Immunization Adult Patients (1 - 1-dose 75+ series) 05/26/2023 Influenza Vaccine (Season Ended) 2024 HIB Vaccines Aged Out No longer eligi [...] age to complete this topic Meningococcal B Vaccine Aged Out No l onger eligible based on patient's age to complete this topic RSV Immunization Patients Under 20 months Aged Out No longer eligible b ased on patient's age to complete this topic Varicella Vaccines Aged Out No longer eligible based on patient's age to complete this topic Insurance [facility] Care Teams Feed Handler Relationship Specialty Start Date End Date Sherman Miller MD [address] [place] [address] PCP - General Pediatrics 09/19/18
== END 2024-06-26 15:11 | disposition home or self-care (01) ==
LOC: HO.LAB 15:10
PROVIDERS: PCP Internal Medicine; Visit Provider Internal Medicine Nephrology
DX: N17.9 Acute kidney failure, unspecified (principal); N18.31 Chronic kidney disease, stage 3a; R80.9 Proteinuria, unspecified
CPT/HCPCS: 36415; 80051; 82565; 84520

== ENCOUNTER 2024-06-29 13:37 | Outpatient (AMB) | payer MEDICARE, SELFPAY ==
--- NOTE | 2024-06-29 13:38 | HO.NEPHOV_ITS ---
Vital Signs 06/29/24 13:39 Height 5 ft 5 in Weight 151 lb BMI 25.1 BP 110/68 Blood Pressure Location Lt brachial Position Sitting Pulse 78 Pulse Source Pulse Oximeter Pulse Oximetry (%) 96 Oxygen Delivery Method Room Air Intake Visit Reasons: -[facility] Ammonia Refrigeration Technician Required: No Accompanied by: Spouse Allergies No Known Allergies Allergy (Verified 06/29/24 13:42) Do you need a note to return to daycare/school/sports/work: No HPI Comments Details: Pauline was seen in follow up for his decompensated CKD. He has H/O CAD needing PCI. He also has H/O ischemic cardiomyopathy and has been closely followed up by Dr Vizcaino. He had been on anti platelet medication as well as jardiance as well as Entresto. Recently he had diarrhea with development of hyperkalemia as well as ETELVINA. It was discontinued by his mentally retarded teacher due to hyperkalemia and ETELVINA . He also has been having edema without any other signs of heart failure. Urine studies at that time showed nephrotic range proteinuria. He has H/O multiple episodes of nephritis in the past. He denies hematuria, dysuria, hemoptysis, hemetemesis, melena, sinusitis, recent antibiotics, regular NSAID's, hypercalcemia, new bone pain, H/O malignancies. He continues to have significantly lower GFR . 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 He under went W/U including renal biopsy. He is here for follow up. He was accompanied by his during this visit. He is concerned about his drop in renal function. He has been having edema with SOB. He is not taking Jardiance or Entresto now. [facility] Medical History Ischemic cardiomyopathy Atherosclerosis of [place] coronary artery of [place] heart without angina pectoris Acne rosacea Elevated serum creatinine Primary osteoarthritis of right knee Right hand weakness Onychomycosis of toenail BPH with obstruction/lower urinary tract symptoms Polycythemia vera Surgical History H/O repair of rotator cuff Family History Mother Heart attack Father Colon cancer Social History Alcohol intake: never Patient Tobacco Use Status: Never used Tobacco Review of Systems Const All systems reviewed & are unremarkable except as noted in HPI and below Physical Exam Vital Signs: Last Vital Signs Pulse 78 06/29/24 13:39 BP 110/68 06/29/24 13:39 Pulse Ox 96 06/29/24 13:39 Oxygen Delivery Method Room Air 06/29/24 13:39 BMI result Body Mass Index 25.1 Const General: comfortable and no acute distress Orientation/consciousness: patient oriented x3 HEENT Head: Yes normocephalic Mouth: Normal oral and palatal mucosa present Eyes EOM: EOMs intact bilaterally Neck Neck: Yes supple Resp Auscultation: clear to auscultation bilaterally Cardio Jugular venous distension: no JVD Rate: regular rate GI Palpation (GI): Soft to palpation Auscultation: normal bowel sounds General: Yes no CVA tenderness Back/Spine/Pelvis Back: no CVA tenderness Skin General skin exam: no rashes or lesions noted Neuro General: patient oriented x3 and moves all extremities Extrem General: Yes edema Results Reviewed Nephrology Results: Hgb 16.5 g/dl (14.0-18.0) 05/31/24 WBC 25.8 X10*3/uL (4.8-10.8) H 05/31/24 Plt Count 539 X10*3/uL (160-400) H 05/31/24 Sodium 139 mmol/L (135-145) 06/26/24 Potassium 4.2 mmol/L (3.3-5.1) 06/26/24 Chloride 104 mmol/L (96-108) 06/26/24 Carbon Dioxide 23 mmol/L (22-29) 06/26/24 BUN 90 mg/dL (9-16) H 06/26/24 Creatinine 4.81 mg/dL (0.5-1.4) H* 06/26/24 Calcium 8.2 mg/dL (8.4-10.2) L 05/31/24 Phosphorus 4.3 mg/dL (2.7-4.5) 05/31/24 PTH Intact 361.2 pg/mL (8.7-77.1) H 05/31/24 Urine Creatinine 56.10 mg/dL 05/02/24 Protein/Creatinin Ratio 6.70 (<0.2) H 05/02/24 Assessment & Plan Assessment & Plan (1) Acute kidney injury superimposed on stage 3a chronic kidney disease: Code(s): N17.9 - Acute kidney failure, unspecified; N18.31 - Chronic kidney disease, stage 3a Category: Medical Plan Pat has CKD H/O recurrent nephritis as well as vascular disease. He has decompensated CKD. His urine output is good. 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 He had some edema and I increased lasix to 80 mg bid and added Metolazone 5 mg daily for 7 days. He is f Entresto and Jardiance. He does not take NSAID's. He does not need renal replacement now but should remain on a low K diet. I discussed with him that his renal function can potentially worsen with time and will need renal replacement at that time. He is on Vitamin D as well. F/U labs ordered. All questions answered and follow up given Orders: Orders Electrolytes 1 Week N17.9 - Acute kidney failure, unspecified, N18.31 - Chronic kidney disease, stage 3a Creatinine 1 Week N17.9 - Acute kidney failure, unspecified, N18.31 - Chronic kidney disease, stage 3a Blood Urea Nitrogen 1 Week N17.9 - Acute kidney failure, unspecified, N18.31 - Chronic kidney disease, stage 3a Medications: New metolazone 5 mg PO DAILY 7 tabs 0RF Discontinued sodium bicarbonate Discontinued Reason: Doctor's Order 650 mg PO BID 60 tabs 3RF Coding Level of Care Code Est Pt Level 4 (92895) Diagnoses Acute kidney injury superimposed on stage 3a chronic kidney disease N17.9; N18.31
[2024-06-29 13:39] VITALS: BP 110/68; PULSE 78; O2SAT 96; BMI 25.1
--- OUTSIDE RECORDS SUMMARY | 2024-06-29 14:21 | XMS_ITS | Encounter Summary ---
Author Organization [facility] Address [address] [place] [address] Phone Care Team Providers Care Environmental Sciences Professor Name Role Phone Sherman Miller MD Primary Care Provider [phone] Tate Moulton MD Unavailable Tanisha Perkins MD Unavailable [phone] Harsh Ross MD Unavailable [phone] Suellen Mccann MD Unavailable [phone] Chante Vizcaino MD Unavailable [phone] Encounter Details Date Type Department Care Team (Late st Contact Info) Description 2024 Orders Only [place] [address] [place] [address] Provider, MD Eduardo [address] [place] [address] Social History Tobacco Use Types Packs/Day [...] Description 07/02/2024 11:30 AM EDT Office Visit [address] [place] [address] Ga Zapata NP [address] [place] [address], [address] [place] [address] documented as of this encounter Procedures Procedure [...] documented as of this encounter Care Teams Environmental Sciences Professor Relationship Specialty Start Date End Date Sherman Miller MD [address] [place] [address], [address] [place] [address] PCP - General Internal Medicine 05/15/18 Tate Moulton MD [address] [place] [address], [address] [place] [address] [email or web address] Urology 06/19/18 Tanisha Perkins MD [address] [place] [phone] [email or web address] Oncology 06/19/18 Harsh [facility] MD [facility] [address] [address] Orthopedic Surgery 10/15/19 Suellen [facility]ccann MD [facility] [address] [address] Gastroenterology 10/23/20 Chante Vizcaino MD [address] [place] [address] [email or web address] Cardiology 11/12/22 documented as of this encounter Additional Source Comments The information contained in this document represents components of the legal health record. It is not the complete legal health record.[facility]
--- OUTSIDE RECORDS SUMMARY | 2024-06-29 14:21 | XMS_ITS | Clinical Summary ---
Author Organization [facility] Address [address] [address] Care Team Providers Care Case Technician Name Role Phone Unavailable Primary Care Provider [...] patient's age to complete this topic Insurance [facility]
--- OUTSIDE RECORDS SUMMARY | 2024-06-29 14:21 | XMS_ITS | Encounter Summary ---
Author Organization [facility] Address [address] [place] [address] Phone Care Team Providers Care Celebrity Manager Name Role Phone Sherman Miller MD Primary Care Provider [phone] Tate Moulton MD Unavailable Tanisha Perkins MD Unavailable [phone] Harsh Ross MD Unavailable [phone] Suellen Mccann MD Unavailable [phone] Chante Vizcaino MD Unavailable [phone] Reason for Referral * Consultation (Within 2 weeks) - Authorized Specialty Diagnoses / Procedures Referred By Nona leon Referred To Contact Diagnoses [place] [facility] Sherman Miller MD 22 [facility], [address] [place] [address] Email: Angelika Rodriguez MD [address] [place] [address] Referral ID Status Reason Start Date Expiration Date V isits Requested Visits Authorized [id number] Authorized 09/04/2023 09/03/2024 6 6 Encounter Details Date Type Department Care Team (Latest Contact Info) Description 05/11/2024 Transcribe Orders [address] [place] [address] Christie William [address] [place] [address] [email or web address] [place] [facility] (Primary Dx) Social History Tobacco Use [...] EDT Office Visit [facility] [address] [place] [address] Ga Zapata NP 22 [facility], [address] [place] [address] Scheduled Referrals Name Type Priority Associated Diagnoses Order Schedule Ambulatory referral to External Provider Outpatient Referral Routine [place] [facility] Ordered: 05/13/2024 documented as of this encounter Visit Diagnoses Diagnosis [place] [facility]- Primary Other mucopurulent conjunctivitis documented in this encounter Additional Health Concerns Assessment Noted Time PHQ-2 Depression Total Score: 0 12/21/20 23 2:54 PM EST documented as of this encounter Care Teams Celebrity Manager Relationship Specialty Start Date End Date Sherman Miller MD [address] [place] [address], [address] [place] [address] [email or web address] PCP - General Internal Medicine 05/15/18 Tate Moulton MD [address] [place] [address], [address] [place] [address] [email or web address] Urology 06/19/18 Tansiha Perkins MD [address] [place] [phone] [email or web address] Oncology 06/19/18 Harsh Ross MD [address] [place] [address] Orthopedic Surgery 10/15/19 Suellen Mccann MD [address] [place] [address] Gastroenterology 10/23/20 Chante Vizcaino MD [address] [place] [address] [email or web address] Cardiology 11/12/22 documented as of this encounter Additional Source Comments The information contained in this document represents components of the legal health record. It is not the complete legal health record.[facility]
--- OUTSIDE RECORDS SUMMARY | 2024-06-29 14:21 | XMS_ITS | Encounter Summary ---
Author Organization [facility] Address [address] [place] [address] Phone Care Team Providers Care Regulatory Compliance Specialist Name Role Phone Sherman Miller MD Primary Care Provider [phone] Tate Moulton MD Unavailable Tanisha Perkins MD Unavailable [phone] Harsh Ross MD Unavailable [phone] Suellen Mccann MD Unavailable [phone] Chante Vizcaino MD Unavailable [phone] Encounter Details Date Type Department Care Team (Late st Contact Info) Description 06/14/2024 Orders Only [place] [address] [place] [address] Provider, MD Eduardo [address] [place] [address] Social History Tobacco Use Types Packs/Day [...] Description 07/02/2024 11:30 AM EDT Office Visit [address] [place] [address] Ga Zapata NP [address] [place] [address], [address] [place] [address] documented as of this encounter Procedures Procedure [...] documented as of this encounter Care Teams Regulatory Compliance Specialist Relationship Specialty Start Date End Date Sherman Miller MD [address] [place] [address], [address] [place] [address] PCP - General Internal Medicine 05/15/18 Tate Moulton MD [address] [place] [address], [address] [place] [address] [email or web address] Urology 06/19/18 Tanisha Perkins MD [address] [place] [phone] [email or web address] Oncology 06/19/18 Harsh Ross MD [facility] [address] [address] Orthopedic Surgery 10/15/19 Suellen Mccann MD [facility] [address] [address] Gastroenterology 10/23/20 Chante Vizcaino MD [address] [place] [address] [email or web address] Cardiology 11/12/22 documented as of this encounter Additional Source Comments The information contained in this document represents components of the legal health record. It is not the complete legal health record.[facility]
--- OUTSIDE RECORDS SUMMARY | 2024-06-29 14:21 | XMS_ITS | Encounter Summary ---
Author Organization [facility] Address [address] [place] [address] Phone Care Team Providers Care Technology Teacher Name Role Phone Sherman Miller MD Primary Care Provider [phone] Tate Moulton MD Unavailable Tanisha Perkins MD Unavailable [phone] Harsh Ross MD Unavailable Suellen Mccann MD Unavailable [phone] Chante Vizcaino MD Unavailable [phone] Encounter Details Date Type Department Care Team (Late st Contact Info) Description 05/29/2024 Orders Only [place] [address] [place] [address] Provider, MD Eduardo [address] [place] [address] Social History Tobacco Use Types Packs/Day [...] Description 07/02/2024 11:30 AM EDT Office Visit [address] [place] [address] Ga Zapata NP [address] [place] [address], [address] [place] [address] documented as of this encounter Procedures Procedure [...] documented as of this encounter Care Teams Technology Teacher Relationship Specialty Start Date End Date Sherman Miller MD [address] [place] [address], [address] [place] [address] [email or web address] PCP - General Internal Medicine 05/15/18 Tate Moulton MD [address] [place] [address], [address] [place] [address] [email or web address] Urology 06/19/18 Tanisha Perkins MD [address] [place] [phone] [email or web address] Oncology 06/19/18 Harsh Ross MD 300 [facility] [address] [address] Orthopedic Surgery 10/15/19 Suellen Mccann MD 300 [facility] [address] [address] Gastroenterology 10/23/20 Chante Vizcaino MD [address] [place] [address] [email or web address] Cardiology 11/12/22 documented as of this encounter Additional Source Comments The information contained in this document represents components of the legal health record. It is not the complete legal health record.[facility]
--- OUTSIDE RECORDS SUMMARY | 2024-06-29 14:22 | XMS_ITS | Encounter Summary ---
Author Organization [facility] Address [address] [place] [address] Phone Care Team Providers Care Dance Choreographer Name Role Phone Sherman Miller MD Primary Care Provider [phone] Tate Moulton MD Unavailable Tanisha Perkins MD Unavailable [phone] Harsh Ross MD Unavailable [phone] Suellen Mccann MD Unavailable [phone] Chante Vizcaino MD Unavailable [phone] Reason for Visit * Reason Onset Date Comments Referral 04/11/2024 Encounter Details Date Type Department Care Team (Late st Contact Info) Description 04/11/2024 Telephone [employer] [facility] Medicine [address] [place] [phone] Sherman Miller MD 22 [facility], [address] [place] [address] [email or web address] Referral Social History Tobacco Use Types Packs/Day [...] Lissette Viera - 04/11/2024 2:25 PM EST [facility] P[facility] Top Smart Phrases: Referral Request Caller stated this is urgent and if an insurance authorization is not received the pt will have to be rescheduled. 1. Name of the office where the patient has been seen/requests to be seen: [facility] 2. Reason for referral/specialist appointment and [...] referral authorization (enter n/a if not available): [id number] 6. Number of visits requested for referral: 6 7. Fax number of specialist office to send referral authorization: [phone] Central Support Scallop Raker (Please do not reply to this user; this inbox is not monitored.) Thank you. documented in this encounter Plan of Treatment Upcoming Encounters Date Type Department Care Team (Late st Contact Info) Description 07/02/2024 11:30 AM EDT Office Visit [address] [address] Ga Zapata NP 22 [facility], [address] [place] [address] [email or web address] documented as of this encounter Visit Diagnoses Not on filedocumented in this encounter Additional Health Concerns Assessment Noted Time PHQ-2 Depression Total Score: 0 02/25/20 23 2:54 PM EST documented as of this encounter Care Teams Dance Choreographer Relationship Specialty Start Date End Date Sherman Miller MD [address] [place] [address], [address] [place] [address] [email or web address] PCP - General Internal Medicine 05/15/18 Tate Moulton MD [address] [place] [address], [address] [place] [address] [email or web address] Urology 06/19/18 Tanisha Perkins MD [address] [place] [phone] [email or web address] Oncology 06/19/18 Harsh Ross MD [facility] [address] [facility] [address] [place] [address] Orthopedic Surgery 10/15/19 Suellen Mccann MD [address] [address] Gastroenterology 10/23/20 Chante Vizcaino MD [address] [place] [address] [email or web address] Cardiology 11/12/22 documented as of this encounter Additional Source Comments The information contained in this document represents components of the legal health record. It is not the complete legal health record.[facility]
--- OUTSIDE RECORDS SUMMARY | 2024-06-29 14:22 | XMS_ITS | Encounter Summary ---
Author Organization [facility] Address [address] [place] [address] Phone Care Team Providers Care Steeping Press Tender Name Role Phone Sherman Miller MD Primary Care Provider [phone]- [phone] Tate Moulton MD Unavailable Tanisha Perkins MD Unavailable [phone] Harsh Ross MD Unavailable [phone] Suellen Mccann MD Unavailable [phone] Chante Vizcaino MD Unavailable [phone] Encounter Details Date Type Department Care Team (Late st Contact Info) Description 06/27/2024 Orders Only [place] [address] [place] [address] Provider, MD Eduardo [address] [place] [address] Social History Tobacco Use Types Packs/Day [...] Description 07/02/2024 11:30 AM EDT Office Visit [address] [place] [address] Ga Zapata NP [address] [place] [address], [address] [place] [address] documented as of this encounter Procedures Procedure Name Priority Date/Time Associated Diagnosis Comments OUTSIDE LAB Routine 06/26/2024 3:54 PM EDT documented in this encounter Results * Outside Lab (06/26/2024 3:54 PM EDT) Historical Provider LAB BLOOD ORDERAB LES documented in this encounter Visit Diagnoses Not on filedocumented in this encounter Additional Health Concerns Assessment Noted Time PHQ-2 Depression Total Score: 0 02/25/20 23 2:54 PM EST documented as of this encounter Care Teams Steeping Press Tender Relationship Specialty Start Date End Date Sherman Miller MD [address] [place] [address], [address] [place] [address] PCP - General Internal Medicine 05/15/18 Tate Moulton MD [address] [place] [address], [address] [place] [address] [email or web address] Urology 06/19/18 Tanisha Perkins MD [address] [place] [phone] [email or web address] Oncology 06/19/18 Harsh Ross MD [facility] [address] [address] Orthopedic Surgery 10/15/19 Suellen Mccann MD 300 [facility] [address] [address] Gastroenterology 10/23/20 Chante Vizcaino MD [address] [place] [address] [email or web address] Cardiology 11/12/22 documented as of this encounter Additional Source Comments The information contained in this document represents components of the legal health record. It is not the complete legal health record.[facility]
--- OUTSIDE RECORDS SUMMARY | 2024-06-29 14:22 | XMS_ITS | Clinical Summary ---
Author Organization [employer] Address [address] [place] [address] 7[address] [place] [address] Care Team Providers Care Due Diligence Coordinator Name Role Phone Sherman Miller MD Primary Care Provider [phone]- [phone] Allergies No known active allergies Medications Aspirin [...] 2023, LVEF 40 to 45%. Atherosclerosis of [place] co ronary artery of [place] heart without angina pectoris 11/12/2022 Overview (03/08/2024): Non-ST elevation [place] October 2022, 2 drug-eluting stents to the LAD BPH with obstruction/lower urinary tract symptom s 06/19/2018 Polycythemia vera 06/19/2018 Overview (03/08/2024): Therapeutic phlebotomies at [facility] Encounters Date Type Department Care Team Description 05/16/2024 Telephone [facility][1] MEDICAL [address] [place] [address] Sherman Miller MD medication questions from Last [...] age to complete this topic Insurance [employer] [place] MED[employer] PREFERRED PRIME MEDICARE [place] MED[employer]ARE PREFERRED PRIME [facility] [place] Care Teams Due Diligence Coordinator Relationship Specialty Start Date End Date Sherman Miller MD [address] [place] [address], [address] [place] [address] PCP - General Internal Medicine 12/29/23
--- OUTSIDE RECORDS SUMMARY | 2024-06-29 14:22 | XMS_ITS | Encounter Summary ---
Author Organization [employer] Address [address] [place] [address] Care Team Providers Care Medication Tech Name Role Phone Sherman Miller MD Primary Care Provider [phone] Encounter Details Date Type Department Care Team (Late st Contact Info) Description 06/27/[address] [facility] Hematology Oncology [address] [place] [address] Tanisha Perkins MD [address] [place] [address] Social History Tobacco Use Types Packs/Day Years Used Date Smoking Tobacco: Never Assessed Sex and Gender Information Value Date Recorded Sex Assigned at Not on file Legal Sex Male 10:42 PM EST Gender Identity Not on file Sexual Orientation Not on file documented as of this encounter Progress Notes * Hafsa Ahumada MA - 06/27/2024 2:48 PM EDT I called and explained to Pat that a follow up appointment with is needed before we can renew any phlebotomy orders. He understood. FYI , FOV is scheduled for 07/12/24. * Hafsa Ahumada MA - 06/27/2024 12:22 PM EDT Images from the original note were not included. Per MD previous message, no further orders until patient is seen for a FOV. I will call patient and advise * Jana Becerra - 06/27/2024 11:29 AM EDT Patient needs new phlebotomy order sent to [facility] documented in this encounter Plan of Treatment Upcoming Encounters Date Type Department Care Team (Late st Contact Info) Description 07/12/2024 3:15 PM EDT Office Visit [facility] Hematology Oncology [address] [place] [phone] Tanisha Perkins MD [address] [place] [address] documented as of this encounter Visit Diagnoses Not on filedocumented in this encounter Care Teams Medication Tech Relationship Specialty Start Date End Date Sherman Miller MD [address] [place] [address] PCP - General Pediatrics 09/19/18 documented as of this encounter
--- OUTSIDE RECORDS SUMMARY | 2024-06-29 14:22 | XMS_ITS | Clinical Summary ---
Author Organization [facility] Address [address] [place] [address] Phone Care Team Providers Care Agriculture Inspector Name Role Phone Sherman Miller MD Primary Care Provider [phone]- [phone] Medications finasteride (PROSCAR) 5 mg tablet Take [...] mouth 1 (one) time each day. Active dk0-[id number]-cod liver-vit A-D3 240-1,000 mg capsule Take 1 [...] hours then complete the remaning. 09/27/2018 Active Encounters Date Type Department Care Team Description 06/27/2024 Telephone [facility] Hematology Oncology [address] [place] [address] Tanisha Perkins MD from Last 3 Months Immunizations Name Administration Dates Next Due Moderna [...] Mass Index - - Plan of Treatment Upcoming Encounters Date Type Department Care Team (Late st Contact Info) Description 07/12/2024 3:15 PM EDT Office Visit [facility] Hematology Oncology [address] [place] [address] Tanisha Perkins MD [address] [place] [phone] Health Maintenance Due Date Last Done Comments [...] patient's age to complete this topic Insurance [employer] Care Teams Agriculture Inspector Relationship Specialty Start Date End Date Sherman Miller MD [address] [place] [address] PCP - General Pediatrics 09/19/18
--- OUTSIDE RECORDS SUMMARY | 2024-06-29 14:22 | XMS_ITS | Clinical Summary ---
Author Organization [facility] Address [address] [place] [address] Care Team Providers Care Certified Medical Dosimetrist Name Role Phone Sherman Miller MD Primary Care Provider [phone] Allergies No known active allergies Medications Medication [...] age to complete this topic Care Teams Certified Medical Dosimetrist Relationship Specialty Start Date End Date Sherman Miller MD [address] [place] [address] PCP - General Internal Medicine 10/10/19
== END 2024-06-29 14:09 | disposition home or self-care (01) ==
LOC: HO.HKA 13:37
PROVIDERS: PCP Internal Medicine; Visit Provider Internal Medicine Nephrology
DX: N17.9 Acute kidney failure, unspecified (principal); N18.31 Chronic kidney disease, stage 3a
CPT/HCPCS: 99214

== ENCOUNTER → 2024-06-29 13:37 | Outpatient (BNVA) | payer MEDICARE, SELFPAY | PROVIDERS: PCP Internal Medicine; Visit Provider Internal Medicine Nephrology | DX: N18.31 Chronic kidney disease, stage 3a (principal); N17.9 Acute kidney failure, unspecified; I25.5 Ischemic cardiomyopathy | CPT/HCPCS: 99212 ==

== ENCOUNTER 2024-07-05 15:24 | Outpatient (REF) | payer MEDICARE, SELFPAY ==
[2024-07-05 16:30] LABS: Anion Gap 17 (12-20); Blood Urea Nitrogen 104 mg/dL (9-16); Carbon Dioxide 30 mmol/L (22-29); Chloride 97 mmol/L (96-108); Estimated Glomerular Filt Rate 11; Potassium 4.2 mmol/L (3.3-5.1); Sodium 140 mmol/L (135-145)
--- OUTSIDE RECORDS SUMMARY | 2024-07-05 17:10 | XMS_ITS | Encounter Summary ---
Author Organization [facility] Address [address] [place] [address] Phone Care Team Providers Care Psychodramatist Name Role Phone Sherman Miller MD Primary Care Provider [phone]- [phone] Tate Moulton MD Unavailable Tanisha Perkins MD Unavailable [phone] Harsh Ross MD Unavailable [phone] Suellen Mccann MD Unavailable [phone] Chante Vizcaino MD Unavailable [phone] Reason for Visit * Reason Comments Sleeping Problem Encounter Details Date Type Department Care Team (Late st Contact Info) Description 07/02/2024 11:30 AM EDT Office Visit [facility] [address] [place] [address] [place], [place] [phone] Ga Zapata, PONCHO 22 [facility], [address] [place] [address] [email or web address] Acute insomnia (Primary Dx) Social History Tobacco Use Types [...] Sign Reading Time Taken Comments Blood Pressure 116/60 07/02/2024 11:35 AM EDT Pulse 65 07/02/2024 11:35 AM EDT Temperature 36.7 ??C (98 ??F) 07/02/2024 11:35 AM EDT Respiratory Rate - - Oxygen Saturation 99% 07/02/2024 11:35 AM EDT Inhaled Oxygen Concentration - - Weight 67.6 kg (149 lb) 07/02/2024 11:35 AM EDT Height 164.4 cm (5' 4.72 ) 07/02/2024 11:35 AM E DT Body Mass Index 25.01 07/02/2024 11:35 AM EDT documented in this encounter Progress Notes * aG Zapata NP - 07/02/2024 11:30 AM EDT HPI: Pat presents to discuss sleep difficulty. He states, I've been going through a lot of health issues. My kidneys are slowing down quite a lot. He had norovirus, flu, and bronchitis over a 6 week period this winter. I'm real anxious, I can't sleep. 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 He typically get into bed and has a hard time falling asleep. My mind just races at night. Stupid stuff. He feels nilo antsy, nilo fidgety. He is not able to fall asleep and if he does he sometimes wakes in the night. He estimates that he is getting 3-4 hours of sleep/night. He is not waking at night to urinate. He takes tamsulosin and finasteride for BPH. Last nephrology note reviewed: he is now taking furosemide 80 BID, metolazone 5 mg daily (x 7 days). He is not taking torsemide. He was taken off Entresto and Jardiance. No significant alcohol or caffeine use. He does not use his phone in the night. He states that when he had more fluid overload he was waking throughout the night, moving from chair to couch to bed and was very SOB. He is not experiencing this now but he thinks about it every evening. He feels frustrated about his current health situation but denies significant depression or anxiety. Vitals: 07/02/24 1135 BP: 116/60 Pulse: 65 Temp: 36.7 ??C (98 ??F) SpO2: 99% Weight: 67.6 kg (149 lb) Height: 164.4 cm (5' 4.72 ) Patient Active Problem List Diagnosis Polycythemia vera BPH with obstruction/lower urinary tract symptoms Onychomycosis of toenail Right hand weakness Primary osteoarthritis of right knee Acute kidney injury Acne rosacea Atherosclerosis of [place] coronary artery of [place] heart without angina pectoris Ischemic cardiomyopathy History of nephritis Exam: General appearance: Alert, pleasant, in no acute distress. HEENT: [place]/AT. EOMI. Conjunctiva clear. Lungs: Regular breathing rate and effort. Musculoskeletal: Normal gait without assistive devices. Skin: No rash or worrisome skin lesions on exposed skin. Psychological: Affect is normal. Appropriate eye contact. Thought process and insight are normal. A/P: Assessment & Plan Acute insomnia He is mostly having sleep onset difficulty and is perseverating about how his sleep was previously disrupted. We discussed the importance of considering his age, his other health conditions (including BPH), renal function/dosing, and length of these symptoms when considering medication. Sleep hygiene discussed. He plans to do some raking outside over the next few days (he is scheduled off work) and this might help his sleep. Trial Ramelteon 8 mg within 30 minutes of bedtime for sleep onset difficulty. We discussed using this for 4 weeks or less. TM scheduled with PCP on 07/26 to review. I hope that if his sleep cycle improves now he may not need medication longer term. He agrees. documented in this encounter Plan of Treatment Upcoming Encounters Date Type Department Care Team (Latest Contact Info) Description 07/26/2024 4:15 PM EDT Telemedicine - audio only [facility] [address] [place] [address] Sherman Miller MD 22 [facility], [address] [place] [address] [email or web address] documented as of this encounter Visit Diagnoses Diagnosis Acute insomnia- Primary documented in this encounter Additional Health Concerns Assessment Noted Time PHQ-2 Depression Total Score: 0 02/25/20 23 2:54 PM EST documented as of this encounter Care Teams Psychodramatist Relationship Specialty Start Date End Date Sherman Miller MD 22 [facility], [address] [place] [address] [email or web address] PCP - General Internal Medicine 05/15/18 Tate Moulton MD [address] [place] [address], [address] [place] [address] [email or web address] Urology 06/19/18 Tanisha Perkins MD [address] [place] [phone] [email or web address] Oncology 06/19/18 Harsh Ross MD 300 [address] [facility] [address] [place] [address] Orthopedic Surgery 10/15/19 Suellen Mccann MD [facility] [address] [address] Gastroenterology 10/23/20 Chante Vizcaino MD [address] [place] [address] [email or web address] Cardiology 11/12/22 documented as of this encounter Additional Source Comments The information contained in this document represents components of the legal health record. It is not the complete legal health record.[facility]
--- OUTSIDE RECORDS SUMMARY | 2024-07-05 17:10 | XMS_ITS | Encounter Summary ---
Author Organization [facility] Address [address] [place] [address] Phone Care Team Providers Care Leather Goods Maker Name Role Phone Sherman Miller MD Primary Care Provider [phone]- [phone] Tate Moulton MD Unavailable Tanisha Perkins MD Unavailable [phone] Harsh Rsos MD Unavailable [phone] Suellen Mccann MD Unavailable [phone] Chante Vizcaino MD Unavailable [phone] Encounter Details Date Type Department Care Team (Late st Contact Info) Description 06/14/2024 Orders Only [place] [address] [place] [address] Provider, MD Eduardo [address] [place] [address] Social History Tobacco Use Types Packs/Day [...] 4:15 PM EDT Telemedicine - audio only [address] [address] Sherman Miller MD [address] [place] [address], [address] [place] [address] [email or web address] documented as of this encounter Procedures Procedure [...] documented as of this encounter Care Teams Leather Goods Maker Relationship Specialty Start Date End Date Sherman Miller MD [address] [place] [address], [address] [place] [address] PCP - General Internal Medicine 05/15/18 Tate Moulton MD [address] [place] [address], [address] [place] [address] [email or web address] Urology 06/19/18 Tanisha Perkins MD [address] [place] [phone] [email or web address] Oncology 06/19/18 Harsh Ross MD [facility] [address] [address] Orthopedic Surgery 10/15/19 Suellen Mccann MD [address] [address] Gastroenterology 10/23/20 Chante Vizcaino MD [address] [place] [address] [email or web address] Cardiology 11/12/22 documented as of this encounter Additional Source Comments The information contained in this document represents components of the legal health record. It is not the complete legal health record.[facility]
--- OUTSIDE RECORDS SUMMARY | 2024-07-05 17:10 | XMS_ITS | Clinical Summary ---
Author Organization [facility] Address [address] [address] Care Team Providers Care Orange Grower Name Role Phone Unavailable Primary Care Provider [...] patient's age to complete this topic Insurance [facility]
--- OUTSIDE RECORDS SUMMARY | 2024-07-05 17:10 | XMS_ITS | Encounter Summary ---
Author Organization [facility] Address [address] [place] [address] Phone Care Team Providers Care Firepot Operator And Tender Name Role Phone Sherman Miller MD Primary Care Provider [phone] Tate Moulton MD Unavailable Tanisha Perkins MD Unavailable [phone] Harsh Ross MD Unavailable Suellen Mccann MD Unavailable [phone] Chante Vizcaino MD Unavailable [phone] Reason for Referral * Consultation (Within 2 weeks) - Authorized Specialty Diagnoses / Procedures Referred By Nona leon Referred To Contact Diagnoses [facility] Sherman Miller MD 22 [facility], [address] [place] [address] Email: Angelika Rodriguez MD [address] [place] [address] Referral ID Status Reason Start Date Expiration Date V isits Requested Visits Authorized [id number] Authorized 09/04/2023 09/03/2024 6 6 Encounter Details Date Type Department Care Team (Latest Contact Info) Description 05/11/2024 Transcribe Orders [address] [place] [address] Christie William [address] [place] [address] [email or web address] [facility] (Primary Dx) Social History Tobacco Use [...] 4:15 PM EDT Telemedicine - audio only [facility] Family Medicine [address] [place] [address] Sherman Miller MD 22 [facility], [address] [place] [address] [email or web address] Scheduled Referrals Name Type Priority Associated Diagnoses Order Schedule Ambulatory referral to External Provider Outpatient Referral Routine [facility] Ordered: 05/13/2024 documented as of this encounter Visit Diagnoses Diagnosis [facility] [place] [facility]- Primary Other mucopurulent conjunctivitis documented in this encounter Additional Health Concerns Assessment Noted Time PHQ-2 Depression Total Score: 0 02/25/20 23 2:54 PM EST documented as of this encounter Care Teams Firepot Operator And Tender Relationship Specialty Start Date End Date Sherman Miller MD [address] [place] [address], [address] [place] [address] PCP - General Internal Medicine 05/15/18 Tate Moulton MD [address] [place] [address], [address] [place] [address] [email or web address] Urology 06/19/18 Tanisha Perkins MD [address] [place] [phone] [email or web address] Oncology 06/19/18 Harsh Ross MD [address] [facility] [address] [place] [address] Orthopedic Surgery 10/15/19 Suellen Mccann MD [address] [facility] [address] [place] [address] Gastroenterology 10/23/20 Chante Vizcaino MD [address] [place] [address] [email or web address] Cardiology 11/12/22 documented as of this encounter Additional Source Comments The information contained in this document represents components of the legal health record. It is not the complete legal health record.[facility]
--- OUTSIDE RECORDS SUMMARY | 2024-07-05 17:11 | XMS_ITS | Clinical Summary ---
Author Organization [employer] Address [address] [place] [address] 7[address] [place] [address] Care Team Providers Care Tandem Mill Roller Name Role Phone Sherman Miller MD Primary Care Provider +1- [phone] Allergies No known active allergies Medications Aspirin [...] 2023, LVEF 40 to 45%. Atherosclerosis of [place] co ronary artery of [place] heart without angina pectoris 11/12/2022 Overview (03/08/2024): Non-ST elevation [place] October 2022, 2 drug-eluting stents to the LAD BPH with obstruction/lower urinary tract symptom s 06/19/2018 Polycythemia vera 06/19/2018 Overview (03/08/2024): Therapeutic phlebotomies at [facility] Encounters Date Type Department Care Team Description 05/16/2024 Telephone [facility] MEDICAL [address] [place] [address] Sherman Miller MD medication questions from Last [...] age to complete this topic Insurance [employer] [place] [employer] PREFERRED PR[place] [phone] [place] MEDICARE PREFERRED PRIME [facility] [place] Care Teams Tandem Mill Roller Relationship Specialty Start Date End Date Sherman Miller MD [address] [place] [address], [address] [place] [address] PCP - General Internal Medicine 12/29/23
--- OUTSIDE RECORDS SUMMARY | 2024-07-05 17:11 | XMS_ITS | Encounter Summary ---
Author Organization [facility] Address [address] [place] [address] Phone Care Team Providers Care Grinding Wheel Dresser Name Role Phone Sherman Miller MD Primary Care Provider [phone]- [phone] Tate Moulton MD Unavailable Tanisha Perkins MD Unavailable [phone] Harsh Ross MD Unavailable [phone] Suellen Mccann MD Unavailable [phone] Chante Vizcaino MD Unavailable [phone] Encounter Details Date Type Department Care Team (Late st Contact Info) Description 06/27/2024 Orders Only [place] [address] [place] [address] Provider, MD Eduardo [address] [place] [address] Social History Tobacco Use Types Packs/Day [...] 4:15 PM EDT Telemedicine - audio only [address] [address] Sherman Miller MD [address] [place] [address], [address] [place] [address] [email or web address] documented as of this encounter [...] documented as of this encounter Care Teams Grinding Wheel Dresser Relationship Specialty Start Date End Date Sherman Miller MD [address] [place] [address], [address] [place] [address] PCP - General Internal Medicine 05/15/18 Tate Moulton MD [address] [place] [address], [address] [place] [address] [email or web address] Urology 06/19/18 Tanisha Perkins MD [address] [place] [phone] [email or web address] Oncology 06/19/18 Harsh Ross MD 300 [facility] [address] [address] Orthopedic Surgery 10/15/19 Suellen Mccann MD [address] [facility] [address] [address] Gastroenterology 10/23/20 Chante Vizcaino MD [address] [place] [address] [email or web address] Cardiology 11/12/22 documented as of this encounter Additional Source Comments The information contained in this document represents components of the legal health record. It is not the complete legal health record.[facility]
--- OUTSIDE RECORDS SUMMARY | 2024-07-05 17:11 | XMS_ITS | Encounter Summary ---
Author Organization [facility] Address [address] [place] [address] Phone Care Team Providers Care Research Pharmacist Name Role Phone Sherman Miller MD Primary Care Provider [phone]- [phone] Tate Moulton MD Unavailable Tanisha Perkins MD Unavailable [phone] Harsh Ross MD Unavailable Suellen Mccann MD Unavailable [phone] Chante Vizcaino MD Unavailable [phone] Reason for Visit * Reason Onset Date Comments Referral 04/11/2024 Encounter Details Date Type Department Care Team (Late st Contact Info) Description 04/11/2024 Telephone [employer] [facility] Medicine [address] [place] [address] [phone] Sherman Miller MD 22 [facility], [address] [place] [address] [email or web address] Referral Social History Tobacco Use Types Packs/Day [...] Lissette Viera - 04/11/2024 2:25 PM EST [facility] Top Smart Phrases: Referral Request Caller stated this is urgent and if an insurance authorization is not received the pt will have to be rescheduled. 1. Name of the office where the patient has been seen/requests to be seen: [facility] 2. Reason for referral/specialist appointment and [...] referral authorization (enter n/a if not available): [id number] 6. Number of visits requested for referral: 6 7. Fax number of specialist office to send referral authorization: [phone] Central Support Inorganic Chemistry Teacher (Please do not reply to this user; this inbox is not monitored.) Thank you. documented in this encounter Plan of Treatment Upcoming Encounters Date Type Department Care Team (Latest Contact Info) Description 07/26/2024 4:15 PM EDT Telemedicine - audio only [address] [address] Sherman Miller MD [address] [place] [address], [address] [place] [address] [email or web address] documented as of this encounter Visit Diagnoses Not on filedocumented in this encounter Additional Health Concerns Assessment Noted Time PHQ-2 Depression Total Score: 0 02/25/20 23 2:54 PM EST documented as of this encounter Care Teams Research Pharmacist Relationship Specialty Start Date End Date Sherman Miller MD [address] [place] [address], [address] [place] [address] [email or web address] PCP - General Internal Medicine 05/15/18 Tate Moulton MD [address] [place] [address], [address] [place] [address] [email or web address] Urology 06/19/18 Tanisha Perkins MD [address] [place] [phone] [email or web address] Oncology 06/19/18 Harsh Ross MD [facility] [address] Pan [facility] [address] [place] [address] Orthopedic Surgery 10/15/19 Suellen Mccann MD [address] [facility] [address] [place] [address] Gastroenterology 10/23/20 Chante Vizcaino MD [address] [place] [address] [email or web address] Cardiology 11/12/22 documented as of this encounter Additional Source Comments The information contained in this document represents components of the legal health record. It is not the complete legal health record.[facility]
--- OUTSIDE RECORDS SUMMARY | 2024-07-05 17:11 | XMS_ITS | Clinical Summary ---
Author Organization [facility] Address [address] [place] [address] Care Team Providers Care Planting Machine Operator Name Role Phone Sherman Miller MD Primary Care Provider [phone] Allergies No known active allergies Medications Medication [...] age to complete this topic Care Teams Planting Machine Operator Relationship Specialty Start Date End Date Sherman Miller MD [address] [place] [address] PCP - General Internal Medicine 10/10/19
--- OUTSIDE RECORDS SUMMARY | 2024-07-05 17:11 | XMS_ITS | Clinical Summary ---
Author Organization [facility] Address [address] [place] [address] Phone Care Team Providers Care Catering Sous Chef Name Role Phone Sherman Miller MD Primary Care Provider [phone]- [phone] Medications finasteride (PROSCAR) 5 mg tablet Take [...] mouth 1 (one) time each day. Active ha5-wdg-few-cod liver-vit A-D3 240-1,000 mg capsule Take 1 [...] Type Department Care Team Description 06/27/2024 Telephone [facility] Hematology Oncology [address] [place] [address] Tanisha Perkins MD from Last [...] Description 07/12/2024 3:15 PM EDT Office Visit [facility] Hematology Oncology [address] [place] [address] Tanisha Perkins MD [address] [place] [phone] Health Maintenance Due Date Last Done Comments [...] patient's age to complete this topic Insurance [facility] Care Teams Catering Sous Chef Relationship Specialty Start Date End Date Sherman Miller MD [address] [place] [address] PCP - General Pediatrics 09/19/18
== END 2024-07-05 15:25 | disposition home or self-care (01) ==
LOC: HO.LAB 15:24
PROVIDERS: PCP Internal Medicine; Visit Provider Internal Medicine Nephrology
DX: R80.9 Proteinuria, unspecified (principal); N17.9 Acute kidney failure, unspecified; N18.31 Chronic kidney disease, stage 3a
CPT/HCPCS: 36415; 80051; 82565; 84520

== ENCOUNTER 2024-07-06 15:42 | Outpatient (AMB) | payer MEDICARE, SELFPAY ==
--- OUTSIDE RECORDS SUMMARY | 2024-07-06 15:45 | XMS_ITS | Encounter Summary ---
Author Organization [facility] Address [address] [place] [address] Phone Care Team Providers Care Staff Attorney Name Role Phone Sherman Miller MD Primary Care Provider [phone] Tate Moulton MD Unavailable Tanisha Perkins MD Unavailable [phone] Harsh Ross MD Unavailable [phone] Suellen Mccann MD Unavailable [phone] Chante Vizcaino MD Unavailable [phone] Reason for Referral * Consultation (Within 2 weeks) - Authorized Specialty Diagnoses / Procedures Referred By Nona leon Referred To Contact Diagnoses Papillion eye Sherman Miller MD 22 [facility], [address] [place] [address] Email: Angelika Rodriguez MD [address] [place] [address] Referral ID Status Reason Start Date Expiration Date V isits Requested Visits Authorized [id number] Authorized 09/04/2023 09/03/2024 6 6 Encounter Details Date Type Department Care Team (Latest Contact Info) Description 05/11/2024 Transcribe Orders [address] [place] [address] Christie William [address] [place] [address] [email or web address] Papillion eye (Primary Dx) Social History Tobacco Use [...] 4:15 PM EDT Telemedicine - audio only [facility] Family Medicine [address] [place] [address] Sherman Miller MD 22 [facility], [address] [place] [address] [email or web address] Scheduled Referrals Name Type Priority Associated Diagnoses Order Schedule Ambulatory referral to External Provider Outpatient Referral Routine Papillion eye Ordered: 05/13/2024 documented as of this encounter Visit Diagnoses Diagnosis Papillion eye- Primary Other mucopurulent conjunctivitis documented in this encounter Additional Health Concerns Assessment Noted Time PHQ-2 Depression Total Score: 0 02/25/20 23 2:54 PM EST documented as of this encounter Care Teams Staff Attorney Relationship Specialty Start Date End Date Sherman Miller MD [address] [place] [address], [address] [place] [address] PCP - General Internal Medicine 05/15/18 Tate Moulton MD [address] [place] [address], [address] [place] [address] [email or web address] Urology 06/19/18 Tanisha Perkins MD [address] [place] [phone] [email or web address] Oncology 06/19/18 Harsh Ross MD [address] [facility] [address] [place] [address] Orthopedic Surgery 10/15/19 Suellen Mccann MD [address] [facility] [address] [place] [address] Gastroenterology 10/23/20 Chante Vizcaino MD [address] [place] [address] [email or web address] Cardiology 11/12/22 documented as of this encounter Additional Source Comments The information contained in this document represents components of the legal health record. It is not the complete legal health record.[facility]
--- OUTSIDE RECORDS SUMMARY | 2024-07-06 15:45 | XMS_ITS | Clinical Summary ---
Author Organization [facility] Address [address] [place] [address] Care Team Providers Care Senior Librarian Name Role Phone Sherman Miller MD Primary Care Provider [phone] Allergies No known active allergies Medications Medication [...] age to complete this topic Care Teams Senior Librarian Relationship Specialty Start Date End Date Sherman Miller MD [address] [place] [address] PCP - General Internal Medicine 10/10/19
--- OUTSIDE RECORDS SUMMARY | 2024-07-06 15:45 | XMS_ITS | Encounter Summary ---
Author Organization [facility] Address [address] [place] [address] Phone Care Team Providers Care Parachute Crown Sewer Name Role Phone Sherman Miller MD Primary Care Provider [phone] Tate Moulton MD Unavailable Tanisha Perkins MD Unavailable [phone] Harsh Ross MD Unavailable Suellen Mccann MD Unavailable [phone] Chante Vizcaino MD Unavailable [phone] Encounter Details Date Type Department Care Team (Late st Contact Info) Description 06/27/2024 Orders Only [place] [address] [place] [address] Provider, MD Eduardo [address] [place] [address] Social History Tobacco Use Types Packs/Day [...] 4:15 PM EDT Telemedicine - audio only [address] [address] Sherman Miller MD [address] [place] [address], [address] [place] [address] [email or web address] documented as of this encounter [...] documented as of this encounter Care Teams Parachute Crown Sewer Relationship Specialty Start Date End Date Sherman Miller MD [address] [place] [address], [address] [place] [address] PCP - General Internal Medicine 05/15/18 Tate Moulton MD [address] [place] [address], [address] [place] [address] [email or web address] Urology 06/19/18 Tanisha Perkins MD [address] [place] [phone] [email or web address] Oncology 06/19/18 Harsh Ross MD [facility] [address] [address] Orthopedic Surgery 10/15/19 Suellen Mccann MD [facility] [address] [address] Gastroenterology 10/23/20 Chante Vizcaino MD [address] [place] [address] [email or web address] Cardiology 11/12/22 documented as of this encounter Additional Source Comments The information contained in this document represents components of the legal health record. It is not the complete legal health record.[facility]
--- OUTSIDE RECORDS SUMMARY | 2024-07-06 15:45 | XMS_ITS | Clinical Summary ---
Author Organization [employer] Address [address] [place] [address] 7t [place] [address] Care Team Providers Care Grinder Set Up Operator Jig Name Role Phone Sherman Miller MD Primary Care Provider [phone]- [phone] Allergies No known active allergies Medications Aspirin [...] 2023, LVEF 40 to 45%. Atherosclerosis of cachil dehe co ronary artery of cachil dehe heart without angina pectoris 11/12/2022 Overview (03/08/2024): Non-ST elevation AR October 2022, 2 drug-eluting stents to the LAD BPH with obstruction/lower urinary tract symptom s 06/19/2018 Polycythemia vera 06/19/2018 Overview (03/08/2024): Therapeutic phlebotomies at [facility] Encounters Date Type Department Care Team Description 05/16/[address] [facility] MEDICAL [address] [place] [address] Sherman Miller MD medication questions from Last [...] age to complete this topic Insurance [employer] PREFERRED [employer] [place] [id number] [employer] [facility]ED [facility] Care Teams Grinder Set Up Operator Jig Relationship Specialty Start Date End Date Sherman Miller MD [address] [place] [address], [address] [place] [address] PCP - General Internal Medicine 12/29/23
--- OUTSIDE RECORDS SUMMARY | 2024-07-06 15:45 | XMS_ITS | Clinical Summary ---
Author Organization [facility] Address [address] [address] Care Team Providers Care Mental Health Technician Name Role Phone Unavailable Primary Care [...] patient's age to complete this topic Insurance [facility]
--- OUTSIDE RECORDS SUMMARY | 2024-07-06 15:45 | XMS_ITS | Encounter Summary ---
Author Organization [facility] Address [address] [place] [address] Phone Care Team Providers Care Pharmacy Intern Name Role Phone Sherman Miller MD Primary Care Provider [phone] Tate Moulton MD Unavailable Tanisha Perkins MD Unavailable [phone] Harsh Ross MD Unavailable Suellen Mccann MD Unavailable [phone] Chante Vizcaino MD Unavailable [phone] Encounter Details Date Type Department Care Team (Late st Contact Info) Description 06/14/2024 Orders Only [place] [address] [place] [address] Provider, MD Eduardo [address] [place] [address] Social History Tobacco Use Types Packs/Day [...] 4:15 PM EDT Telemedicine - audio only [address] [address] Sherman Miller MD [address] [place] [address], [address] [place] [address] [email or web address] documented as of this encounter [...] documented as of this encounter Care Teams Pharmacy Intern Relationship Specialty Start Date End Date Sherman Miller MD [address] [place] [address], [address] [place] [address] PCP - General Internal Medicine 05/15/18 Tate Moulton MD [address] [place] [address], [address] [place] [address] [email or web address] Urology 06/19/18 Tanisha Perkins MD [address] [place] [phone] [email or web address] Oncology 06/19/18 Harsh Ross MD [facility] [address] [address] Orthopedic Surgery 10/15/19 Suellen Mccann MD [address] [address] Gastroenterology 10/23/20 Chante Vizcaino MD [address] [place] [address] [email or web address] Cardiology 11/12/22 documented as of this encounter Additional Source Comments The information contained in this document represents components of the legal health record. It is not the complete legal health record.[facility]
--- OUTSIDE RECORDS SUMMARY | 2024-07-06 15:45 | XMS_ITS | Encounter Summary ---
Author Organization [facility] Address [address] [place] [address] Phone Care Team Providers Care Rolled Seat Trimmer Name Role Phone Sherman Miller MD Primary Care Provider [phone] Tate Moulton MD Unavailable Tanisha Perkins MD Unavailable [phone] Harsh Ross MD Unavailable [phone] Suellen Mccann MD Unavailable [phone] Chante Vizcaino MD Unavailable [phone] Reason for Visit * Reason Onset Date Comments Referral 04/11/2024 Encounter Details Date Type Department Care Team (Late st Contact Info) Description 04/11/2024 Telephone [employer] [facility] Medicine [address] [place] [address] [phone] Sherman Miller MD 22 [facility], [address] [place] [address] [email or web address] Referral Social History Tobacco Use Types Packs/Day [...] Lissette Viera - 04/11/2024 2:25 PM EST [facility] Top Smart Phrases: Referral Request Caller stated this is urgent and if an insurance authorization is not received the pt will have to be rescheduled. 1. Name of the office where the patient has been seen/requests to be seen: [facility] 2. Reason for referral/specialist appointment and the [...] referral authorization (enter n/a if not available): [id number] 6. Number of visits requested for referral: 6 7. Fax number of specialist office to send referral authorization: [phone] Central Support Server Engineer (Please do not reply to this user; this inbox is not monitored.) Thank you. documented in this encounter Plan of Treatment Upcoming Encounters Date Type Department Care Team (Latest Contact Info) Description 07/26/2024 4:15 PM EDT Telemedicine - audio only [address] [address] Sherman Miller MD [address] [place] [address], [address] [place] [address] [email or web address] documented as of this encounter Visit Diagnoses Not on filedocumented in this encounter Additional Health Concerns Assessment Noted Time PHQ-2 Depression Total Score: 0 02/25/20 23 2:54 PM EST documented as of this encounter Care Teams Rolled Seat Trimmer Relationship Specialty Start Date End Date Sherman Miller MD [address] [place] [address], [address] [place] [address] [email or web address] PCP - General Internal Medicine 05/15/18 Tate Moulton MD [address] [place] [address], [address] [place] [address] [email or web address] Urology 06/19/18 Tanisha Perkins MD [address] [place] [phone] [email or web address] Oncology 06/19/18 Harsh Ross MD [facility] [address] Pan [facility] [address] [place] [address] Orthopedic Surgery 10/15/19 Suellen Mccann MD [address] [facility] [address] [place] [address] Gastroenterology 10/23/20 Chante Vizcaino MD [address] [place] [address] [email or web address] Cardiology 11/12/22 documented as of this encounter Additional Source Comments The information contained in this document represents components of the legal health record. It is not the complete legal health record.[facility]
--- OUTSIDE RECORDS SUMMARY | 2024-07-06 15:45 | XMS_ITS | Clinical Summary ---
Author Organization [facility] Address [address] [place] [address] Phone Care Team Providers Care Take Up Supervisor Name Role Phone Sherman Miller MD Primary Care Provider [phone] Tate Moulton MD Unavailable Tanisha Perkins MD Unavailable [phone] Harsh Ross MD Unavailable [phone] Suellen Mccann MD Unavailable [phone] Chante Vizcaino MD Unavailable [phone] Allergies No known active allergies Medications [...] by mouth daily. Active albuterol 90 mcg/actuation inhalerIndicati ons:Wheezing Inhale 2 puffs into the lungs every 6 (six) hours as needed for wheezing. 18 g 1 05/17/2024 Active Additional Information Patient not taking.Reported on 07/02/2024 furosemide (LASIX) 40 MG tablet Take 80 mg by mouth 2 (two) times a day. 05/08/2024 Active metOLazone (ZAROXOLYN) 5 MG tablet Take 1 tablet by mouth every morning. For 5 days 06/29/2024 Active ramelteon (ROZEREM) 8 mg tablet Take 1 tablet (8 mg total) by mouth nightly at bedtime. Take within 30 minutes of bedtime 30 tablet 07/02/2024 Active benzonatate (TESSALON) 100 MG capsule Take 100 mg by mouth 3 (three) times a day as needed for cough. 05/09/2024 06/19/19 25 Discontinued(No longer taking) azithromycin (ZITHROMAX) 250 MG tabletIndicatio ns:Acute bacterial bronchitis Take 1 tablet (250 mg total) by mouth as directed. Take 2 tablets on day 1 followed by 1 tablet daily for 4 days 6 tablet 05/17/2024 06/19/19 25 Discontinued(No longer taking) guaiFENesin (MUCINEX) 600 mg ER biphasic tabletIndicatio ns:Acute bacterial bronchitis Take 1 tablet (600 mg total) by mouth 2 (two) times a day. 20 tablet 2 05/17/2024 06/19/19 25 Discontinued(No longer taking) torsemide 40 mg Tab Take 40 mg by mouth daily. 07/03/19 25 Discontinued Active Problems Problem Noted Date Diagnosed Date [...] leave this up to cardiology. Atherosclerosis of [place] co ronary artery of [place] heart without angina pectoris 11/12/2022 Overview (11/12/2022): Non-ST elevation OK October 2022, 2 drug-eluting stents to the [...] compression. He will follow-up as scheduled with [facility]. Polycythemia vera 06/19/2018 Overview (02/25/2023): Therapeutic phlebotomies at [facility] Assessment & Plan (04/10/2024 12:02 PM EST): Hemoglobin has gone up a little bit. He will follow-up as planned with hematology next month. He is likely going to be due for another phlebotomy. Assessment & Plan (02/25/2023 10:32 AM EST): Doing well, next due to have CBC checked at [facility] in about 6 weeks. Assessment & Plan (02/24/2022 10:45 AM EST): Clinically is doing well. Follow-up as planned with hematology Assessment & Plan (10/23/2020 3:44 PM EDT): Clinically is doing well. Check CBC and copy to his nursing tech. Goal is to maintain hemoglobin less than [...] Encounters Date Type Department Care Team Description 07/02/2024 11:30 AM EDT Office Visit [address] [place] [address] Ga Zapata CNP Acute insomnia (Primary Dx) 06/27/2024 Orders Only [address] [place] [address] ProviderEduardo MD 06/19/2024 Telephone [facility] [address] [place] [address] Sherman Miller MD Imaging Follow Up (Recent chest xray) 06/19/2024 Telephone [facility] [address] [place] [address] Sherman Miller MD Results (Follow up results); urgent appointment 06/18/2024 2:23 PM EDT - 06/18/2024 11:59 PM EDT Hospital Encounter [facility] Laboratory [address] [place] [address] [place] [address] Rigoberto Schuster MD Discharge Disposition: Home or Self Care 06/18/2024 2:15 PM EDT - 06/18/2024 2:22 PM EDT Hospital Encounter [facility], X-Ray - [address] [place] [address] Rigoberto Schuster MD Discharge Disposition: Home or Self Care 06/18/2024 1:45 PM EDT Office Visit [address] [place] [address] Rigoberto Schuster MD History of nephritis (Primary Dx); Acute pulmonary edema; Bilateral leg edema; Acute kidney injury; Dyspnea, unspecified type 06/18/[address] [place] [address] Sherman Miller MD Triage (Red+SOB and Knee edema) 06/14/2024 Orders Only [address] [place] [address] Eduardo Carver MD 05/29/2024 Orders Only [address] [place] [address] Eduardo Carver MD 2024 Orders Only [address] [place] [address] Eduardo Carver MD 05/23/[address] [place] [address] Lidia Figueroa LPN Cough 05/17/2024 1:00 PM EDT Office Visit [address] [place] [address] Rigoberto Schuster MD Acute bacterial bronchitis (Primary Dx); Wheezing 05/11/[address] [place] [address] Inna Solis LPN Influenza 05/11/2024 Transcribe Orders [address] [place] [address] Christie William [place] [facility] (Primary Dx) 04/11/2024 Telephone [facility] [address] [place] [address] Sherman Miller MD Referral 04/10/2024 12:01 PM EST - 04/10/2024 11:59 PM EST Hospital Encounter [facility] [address] [place] [address] Sherman Miller MD Discharge Disposition: Home or Self Care 04/10/2024 11:30 AM EST Office Visit [facility] [address] [place] [address] Sherman Miller MD Acute kidney injury (Primary Dx); BPH with obstruction/lower urinary tract symptoms; Ischemic cardiomyopathy; Polycythemia vera from Last 3 Months Immunizations Name Administration [...] No Known Problems Daughter 1 teacher for de af No Known Problems Daughter 2 teacher, [facility] Colon cancer Father Aneurysm Mother No Known [...] ??F) 07/02/2024 11:35 AM EDT Respiratory Rate 18 11/12/2022 8:21 AM EDT Oxygen Saturation 99% 07/02/2024 11:35 AM EDT Inhaled Oxygen Concentration - - Weight 67.6 kg (149 lb) 07/02/2024 11:35 AM EDT Height 164.4 cm (5' 4.72 ) 07/02/2024 11:35 AM E DT Body Mass Index 25.01 07/02/2024 11:35 AM EDT Plan of Treatment Upcoming Encounters Date Type Department Care Team (Latest Contact Info) Description 07/26/2024 4:15 PM EDT Telemedicine - audio only [facility] [address] [place] [address] Sherman Miller MD [address] [facility], [address] [place] [address] [email or web address] Health Maintenance Due Date Last Done Comments Adult Td,Tdap Booster 1950 COVID-19 VACCINE ( season) 2023 12/17/2022, 01/05/2022, 02/02/2021, Additional history exists DEPRESSION SCREENING 02/25/2024 02/24/2023 POTASSIUM LEVEL 06/18/2025 06/18/2024, 02/0 06/2024, 04/05/2024, Additional history exists HEPATITIS C SCREENING Completed 10/15/2019 PNEUMOCOCCAL VACCINES (50+ years) Completed 01/13/2023, 01/05/2017, 12/27/2015 RSV VACCINE Completed 03/05/2023 SMOKING STATUS SCREENING (Once After 26 Yrs) Completed 07/02/2024 HEPATITIS A VACCINES Aged Out No long [...] OUTSIDE LAB Routine 06/26/2024 3:54 PM EDT URINE SEDIMENT Routine 06/18/2024 2:45 PM EDT [...] 04/10/2024 12:14 PM EST Acute kidney injury HEPATITIS C ANTIBODY, QUALITATIVE Routine 10/15/2019 10:49 AM EDT Encounter for Medicare annual wellness exam from Last 3 Months or Most Recently Relevant to Health Maintenance Results * Outside Lab (06/26/2024 3:54 PM EDT) Only the most recent of3 resultswithin the time period is included. Historical Provider LAB BLOOD ORDERAB LES * (ABNORMAL) Urinalysis w/reflex Urine Culture (06/18/2024 2:45 PM EDT) COLOR Yellow Yellow [facility] CLARITY Clear [facility] GLUCOSE Negative Negative [facility] BILI Negative Negative [facility] KETONES Negative Negative [facility] SPECIFIC GRAVITY 1.025 1.005 - 1.030 [facility] BLOOD 2+(A) Negative [facility] PH 6.0 5.0 - 8.0 [facility] Protein-UA 3+(A) Negative [facility] NITRITE Negative Negative [facility] Leukocyte esterase, ur Negative Negative [facility] Urine (Urine) 06/18/2024 2:4 5 PM EDT 06/18/2024 2:49 PM EDT Rigoberto Schuster MD URINE ORDERABLES Performing Organization Address [facility] Co de Phone Number [address] [address] * (ABNORMAL) Urine sediment (06/18/2024 2:45 PM EDT) WBC 0-4(A) NONE SEEN /hpf [facility] RBC 21-49(A) NONE SEEN /hpf [facility] URINE EPITHELIAL 0-4(A) NONE SEEN [facility] MUCUS Trace(A) NONE SEEN /hpf [facility] BACTERIA Trace(A) NONE SEEN /hpf [facility] 06/18/2024 2:45 PM EDT 06/18/2024 2:49 PM EDT Rigoberto Schuster MD URINE ORDERABLES Performing Organization Address [facility] Co de Phone Number [address] [address] * Magnesium (06/18/2024 2:42 PM EDT) MAGNESIUM 2.1 1.6 - 2.6 mg/dL [facility] Blood 06/18/2024 2:42 PM EDT 06/18/2024 2:44 PM EDT Rigoberto Schuster MD LAB BLOOD ORDERABLES [address] [address] * (ABNORMAL) Basic metabolic panel (06/18/2024 2:42 PM EDT) Only the most recent of2 resultswithin the time period is included. SODIUM 139 133 - 146 mmol/L [facility] CHLORIDE 106 96 - 108 mmol/L [facility] POTASSIUM 5.2(H) 3.3 - 5.1 mmol/L [facility] CO2 22 21 - 35 mmol/L [facility] BUN 71(H) 6 - 19 mg/dL [facility] CREATININE 4.70(H) 0.5 - 1.5 mg/dL [facility] GLUCOSE 82 70 - 99 mg/dL [facility] CALCIUM 8.3(L) 8.4 - 10.3 mg/dL [facility] EGFR 12(L) >59 mL/min/1.7 3m2 [facility] Comment:Estimated glomerular filtration rate calculated using the CKD-EPI refit equation. ANION GAP 16 10 - 20 mmol/L [facility] Blood 06/18/2024 2:42 PM EDT 06/18/2024 2:44 PM EDT Rigoberto Schuster MD LAB BLOOD ORDERABLES [address] [address] * XR CHEST PA AND LATERAL 2 VIEWS (06/18/2024 2:29 PM EDT) Anatomical Region Laterality Modality Chest Computed Radiogr aphy 06/18/2024 2:32 PM EDT Impressions 06/18/2024 2:33 PM EDT Mild to moderate pulmonary edema with trace bilateral pleural effusions. Narrative 06/18/2024 2:33 PM EDT XR CHEST PA AND LATERAL 2 VIEWS Referring clinician's provided indication for this examination in [facility]: Dyspnea (Shortness of Breath) COMPARISON: None [...] clinician's provided indication for this examination in [facility]:Dyspnea (Shortness of Breath) COMPARISON: None available [...] trace bilateral pleural effusions. Rigoberto Schuster MD IMA[facility] XR CHEST * Outside Imaging Report Only (05/22/2024 4:44 PM EDT) Historical Provider MD IRWIN XR CHEST * Hepatitis C antibody, qualitative (10/15/2019 10:49 AM EDT) HCV NON-REACTIV E NON-REACTI VE [facility] Blood 10/15/2019 10:4 9 AM EDT 10/15/2019 11:03 AM EDT Sherman Miller MD LAB BLOOD ORDERABL ES [facility] [address] [place] [address] from Last 3 Months or Most Recently Relevant to Health Maintenance Care Teams Take Up Supervisor Relationship Specialty Start Date End Date Moskovitz, Sherman G, MD [address] [place] [address], [address] [place] [address] PCP - General Internal Medicine 05/15/18 Tate Moulton MD [address] [place] [address], [address] [place] [address] [email or web address] U[facility] 06/19/18 Tanisha Perkins MD [address] [place] [phone] [email or web address] Oncology 06/19/18 Harsh Ross MD [address] [place] [address] Orthopedic Surgery 10/15/19 Suellen Mccann MD [address] [place] [address] Gastroenterology 10/23/20 Chante Vizcaino MD [address] [place] [phone] [email or web address] Cardiology 11/12/22 Additional Source Comments The information contained in this document represents components of the legal health record. It is not the complete legal health record.[facility]
--- OUTSIDE RECORDS SUMMARY | 2024-07-06 15:45 | XMS_ITS | Clinical Summary ---
Author Organization [facility] Address [address] [place] [address] Phone Care Team Providers Care E Commerce Developer Name Role Phone Sherman Miller MD Primary Care Provider [phone] Medications finasteride (PROSCAR) 5 mg tablet Take [...] mouth 1 (one) time each day. Active [id number] liver-vit A-D3 240-1,000 mg capsule Take 1 [...] Type Department Care Team Description 06/27/2024 Telephone [facility] Hematology Oncology [address] [place] [address] Tanisha Perkins MD from Last [...] Description 07/12/2024 3:15 PM EDT Office Visit [facility] Hematology Oncology [address] [place] [address] Tanisha Perkins MD [address] [place] [phone] Health Maintenance Due Date Last Done Comments [...] patient's age to complete this topic Insurance [facility] Care Teams E Commerce Developer Relationship Specialty Start Date End Date Sherman Miller MD [address] [place] [address] PCP - General Pediatrics 09/19/18
--- NOTE | 2024-07-06 16:00 | HO.NEPHOV ---
Vital Signs 07/06/24 16:01 Height 5 ft 5 in Weight 141 lb BMI 23.5 BP 102/60 Blood Pressure Location Lt brachial Position Sitting Pulse 77 Pulse Source Pulse Oximeter Pulse Oximetry (%) 96 Oxygen Delivery Method Room Air Intake Visit Reasons: 1wk follow-up w/lab per Senior Front End Web Developer Required: No Accompanied by: Self / Same As Patient Allergies No Known Allergies Allergy (Verified 07/06/24 16:08) Do you need a note to return to daycare/school/sports/work: No HPI Comments Details: Pauline was seen in follow up for his decompensated CKD. He has H/O CAD needing PCI. He also has H/O ischemic cardiomyopathy and has been closely followed up by Dr Vizcaino. He had been on anti platelet medication as well as jardiance as well as Entresto. Recently he had diarrhea with development of hyperkalemia as well as ETELVINA. It was discontinued by his restaurant worker due to hyperkalemia and ETELVINA . He also has been having edema without any other signs of heart failure. Urine studies at that time showed nephrotic range proteinuria. He has H/O multiple episodes of nephritis in the past. He denies hematuria, dysuria, hemoptysis, hemetemesis, melena, sinusitis, recent antibiotics, regular NSAID's, hypercalcemia, new bone pain, H/O malignancies. He continues to have significantly lower GFR . 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 He under went W/U including renal biopsy. He is here for follow up. He is concerned about his drop in renal function. His edema and SOB has resolved. He is not taking Jardiance or Entresto now [facility] Medical History Ischemic cardiomyopathy Atherosclerosis of [place] coronary artery of [place] heart without angina pectoris Acne rosacea Elevated serum creatinine Primary osteoarthritis of right knee Right hand weakness Onychomycosis of toenail BPH with obstruction/lower urinary tract symptoms Polycythemia vera Surgical History H/O repair of rotator cuff Family History Mother Heart attack Father Colon cancer Social History Alcohol intake: never Patient Tobacco Use Status: Never used Tobacco Review of Systems Const All systems reviewed & are unremarkable except as noted in HPI and below Physical Exam Vital Signs: Last Vital Signs Pulse 77 07/06/24 16:01 BP 102/60 07/06/24 16:01 Pulse Ox 96 07/06/24 16:01 Oxygen Delivery Method Room Air 07/06/24 16:01 BMI result Body Mass Index 23.5 Const General: comfortable and no acute distress Orientation/consciousness: patient oriented x3 HEENT Head: Yes normocephalic Mouth: Normal oral and palatal mucosa present Eyes EOM: EOMs intact bilaterally Neck Neck: Yes supple Resp Auscultation: clear to auscultation bilaterally Cardio Jugular venous distension: no JVD Rate: regular rate GI Palpation (GI): Soft to palpation Auscultation: normal bowel sounds General: Yes no CVA tenderness Back/Spine/Pelvis Back: no CVA tenderness Skin General skin exam: no rashes or lesions noted Neuro General: patient oriented x3 and moves all extremities Extrem General: Yes no pedal edema Results Reviewed Nephrology Results: Hgb 16.5 g/dl (14.0-18.0) 05/31/24 WBC 25.8 X10*3/uL (4.8-10.8) H 05/31/24 Plt Count 539 X10*3/uL (160-400) H 05/31/24 Sodium 140 mmol/L (135-145) 07/05/24 Potassium 4.2 mmol/L (3.3-5.1) 07/05/24 Chloride 97 mmol/L (96-108) 07/05/24 Carbon Dioxide 30 mmol/L (22-29) H 07/05/24 BUN 104 mg/dL (9-16) H 07/05/24 Creatinine 5.26 mg/dL (0.5-1.4) H* 07/05/24 Assessment & Plan Assessment & Plan (1) Acute kidney injury superimposed on stage 3a chronic kidney disease: Code(s): N17.9 - Acute kidney failure, unspecified; N18.31 - Chronic kidney disease, stage 3a Category: Medical (2) Nephrotic range proteinuria: Code(s): R80.9 - Proteinuria, unspecified Category: Medical (3) Vitamin D deficiency: Code(s): E55.9 - Vitamin D deficiency, unspecified Category: Medical (4) CKD (chronic kidney disease) stage 5, GFR less than 15 ml/min: Code(s): N18.5 - Chronic kidney disease, stage 5 Category: Medical Plan Pat has CKD H/O recurrent nephritis as well as vascular disease. He has decompensated CKD. His urine output is good. 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 His edema has resolved after I increased lasix to 80 mg bid and added Metolazone 5 mg daily for 7 days. He is off Entresto and Jardiance. He does not take NSAID's. He does not need renal replacement now but should remain on a low K diet. I discussed with him that his renal function can potentially worsen with time and will need renal replacement/transplant at that time. He is on Vitamin D as well. F/U labs ordered. All questions answered and follow up given Orders: Orders Creatinine 6 Weeks E55.9 - Vitamin D deficiency, unspecified, N17.9 - Acute kidney failure, unspecified, N18.31 - Chronic kidney disease, stage 3a, R80.9 - Proteinuria, unspecified Electrolytes 6 Weeks E55.9 - Vitamin D deficiency, unspecified, N17.9 - Acute kidney failure, unspecified, N18.31 - Chronic kidney disease, stage 3a, R80.9 - Proteinuria, unspecified Calcium 6 Weeks E55.9 - Vitamin D deficiency, unspecified, N17.9 - Acute kidney failure, unspecified, N18.31 - Chronic kidney disease, stage 3a, R80.9 - Proteinuria, unspecified Blood Urea Nitrogen 6 Weeks E55.9 - Vitamin D deficiency, unspecified, N17.9 - Acute kidney failure, unspecified, N18.31 - Chronic kidney disease, stage 3a, R80.9 - Proteinuria, unspecified Medications: Discontinued metolazone Discontinued Reason: Doctor's Order 5 mg PO DAILY 7 tabs 0RF Coding Level of Care Code Est Pt Level 4 (24250) Diagnoses Acute kidney injury superimposed on stage 3a chronic kidney disease N17.9; N18.31 Nephrotic range proteinuria R80.9 Vitamin D deficiency E55.9 CKD (chronic kidney disease) stage 5, GFR less than 15 ml/min N18.5
[2024-07-06 16:01] VITALS: BP 102/60; PULSE 77; O2SAT 96; BMI 23.5
== END 2024-07-06 16:29 | disposition home or self-care (01) ==
LOC: HO.HKA 15:42
PROVIDERS: PCP Internal Medicine; Visit Provider Internal Medicine Nephrology
DX: N17.9 Acute kidney failure, unspecified (principal); N18.31 Chronic kidney disease, stage 3a; R80.9 Proteinuria, unspecified; E55.9 Vitamin D deficiency, unspecified; N18.5 Chronic kidney disease, stage 5
CPT/HCPCS: 99214

== ENCOUNTER → 2024-07-06 15:42 | Outpatient (BNVA) | payer MEDICARE, SELFPAY | PROVIDERS: PCP Internal Medicine; Visit Provider Internal Medicine Nephrology | DX: N17.9 Acute kidney failure, unspecified (principal); R80.9 Proteinuria, unspecified; E55.9 Vitamin D deficiency, unspecified; N18.5 Chronic kidney disease, stage 5 | CPT/HCPCS: 99212 ==

== ENCOUNTER 2024-08-30 15:13 | Outpatient (REF) | payer MEDICARE, SELFPAY ==
--- OUTSIDE RECORDS SUMMARY | 2024-08-30 18:26 | XMS_ITS | Clinical Summary ---
Author Organization [facility] Facility Address [address] [address] Care Team Providers Care Smocker Name Role Phone Unavailable Primary Care Provider [...] patient's age to complete this topic Insurance [facility]
== END 2024-08-30 15:14 | disposition home or self-care (01) ==
LOC: HO.BBR 15:13
PROVIDERS: PCP Internal Medicine; Visit Provider Internal Medicine
DX: D45 Polycythemia vera (principal)
CPT/HCPCS: 85014; 85018; 99195

== ENCOUNTER 2024-09-05 15:00 | Outpatient (AMB) | payer MEDICARE, SELFPAY ==
--- NOTE | 2024-09-05 15:02 | A.OFFVIS_ITS ---
Vital Signs 09/05/24 15:27 Height 5 ft 5 in Weight 141 lb BMI 23.5 Intake Visit Reasons: [employer]- RT hip pain, DOI 07/20/24 Intake Note: Pauline is a 74 year old male who presents today for a new patient evaluation of right hip pain, DOI 07/20/24. Patient reports pain in both of his hips after he had a collision with another player while playing softball. He was seen at [facility], x-rays were taken. Patient reports no other treatment due to him being referred to [facility] and his appointment was cancelled. He states his pain has gotten better since injury. Allergies No Known Allergies Allergy (Verified 09/05/24 15:33) Medication List - Last Reconciled 09/05/24 by Brayan Bradley PA-C ascorbic acid (vitamin C) mg PO DAILY aspirin 81 mg PO DAILY atorvastatin 80 mg PO DAILY cholecalciferol (vitamin D3) 1,250 mcg PO QWEEK clopidogrel 75 mg PO DAILY finasteride mg PO DAILY furosemide 80 mg (2 x 40 mg) PO BID metoprolol succinate ER 25 mg PO DAILY tamsulosin mg PO DAILY HPI HPI [employer]- RT hip pain, DOI 07/20/24: Details: 74-year-old gentleman presents to the office today for an injury he sustained to his right hip on 07/20/2024 while playing softball. He states he was running when another player collided into him and landed on top of him. He was seen at an urgent care and continued to rest and modify his activities with some resolution of symptoms however he continues to have some difficulty with lifting the right leg. [facility] Medical History (Updated 09/05/24 @ 15:34 by Brayan Bradley PA-C) Ischemic cardiomyopathy Atherosclerosis of [place] coronary artery of [place] heart without angina pectoris Acne rosacea Elevated serum creatinine Primary osteoarthritis of right knee Right hand weakness Onychomycosis of toenail BPH with obstruction/lower urinary tract symptoms Polycythemia vera Surgical History H/O repair of rotator cuff Family History Mother Heart attack Father Colon cancer Social History (Updated 09/05/24 @ 15:25 by VINCENZO Crowley) Alcohol intake: never Patient Tobacco Use Status: Never used Tobacco 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 No pain with abduction or adduction against resistance. Neurovascularly intact. Results Reviewed Results Reviewed: X-rays of the right hip obtained in the office today and reviewed by me show mild arthritis Assessment & Plan Assessment & Plan (1) Strain of flexor muscle of right hip: Code(s): S76.011A - Strain of muscle, fascia and tendon of right hip, initial encounter Category: Medical Plan: Patient is slowly improving since the date of injury. I do recommend a course of physical therapy to work on stretching and strengthening exercises. He can gradually increase activities as tolerated and if there is any concerns he will contact our office otherwise follow up as needed. Orders: Orders PT Evaluation and Treatment Today S76.011A - Strain of muscle, fascia and tendon of right hip, initial encounter Coding Level of Care Code New Pt Level 3 (55737) Complex EM visit Add On G2211 Diagnoses Strain of flexor muscle of right hip S76.011A
--- OUTSIDE RECORDS SUMMARY | 2024-09-05 15:22 | XMS_ITS | Clinical Summary ---
Author Organization [facility] Facility Address [address] [address] Care Team Providers Care Business Performance Manager Name Role Phone Unavailable Primary Care Provider [...] patient's age to complete this topic Insurance [facility]
--- OUTSIDE RECORDS SUMMARY | 2024-09-05 15:22 | XMS_ITS | Clinical Summary ---
Author Organization [facility] Address [address] [place] [address] Phone Care Team Providers Care Apprentice Photographer Name Role Phone Sherman Miller MD Primary Care Provider +1- [phone] Allergies No known active allergies Medications finasteride (PROSCAR) 5 mg tablet Take [...] mouth 1 (one) time each day. Active [id number] liver-vit A-D3 240-1,000 mg capsule Take 1 [...] hours then complete the remaning. 09/27/2018 Active furosemide (LASIX) 40 mg tablet Take 2 tablets (80 mg total) by mouth 2 (two) times a day. Active Encounters Date Type Department Care Team Description 07/18/2024 10:00 AM EDT Office Visit [facility] Hematology Oncology [address] [place] [address] Tanisha Perez MD Polycythemia vera ([facility] V[facility], [facility] V28) (Primary Dx); Essential thrombocytosis ([facility] V24, [facility] V[facility]) 06/27/2024 Telephone [facility] Hematology Oncology [address] [place] [phone] Tanisha Perez MD from Last 3 Months Immunizations Name Administration Dates Next Due Moderna SARS-CoV-2 COVID-19, mRNA, LNP-S, preservative free 04/16/2020,03/19/2020 Surgical History Surgery Date Site/Laterality Comments ANGIOPLASTY PROCEDURE:ANGIOPLASTY Medical History Medical History Date Comments Heart attack ([facility] V[facility], [facility]) DX:Heart attack ([facility]) Social History Tobacco Use Types Packs/Day Years Used Date Smoking Tobacco: Never Sex and Gender Information Value Date Recorded Sex Assigned at Not on file Legal Sex Male 10:42 PM EST Gender Identity Not on file Sexual Orientation Not on file Obstetrics History Last Filed Vital Signs Vital Sign Reading Time Taken Comments Blood Pressure 112/74 07/18/2024 10:09 AM EDT Pulse 61 07/18/2024 10:09 AM EDT Temperature 36.7 C (98.1 F) 07/18/2024 10:09 AM EDT Respiratory Rate - - Oxygen Saturation 99% 07/18/2024 10:09 AM EDT Inhaled Oxygen Concentration - - Weight 62.6 kg (138 lb) 07/18/2024 10:09 AM EDT Height - - Body Mass Index - - Plan of Treatment Upcoming Encounters Date Type Department Care Team (Late st Contact Info) Description 05/06/2025 10:15 AM EST Office Visit [facility] Hematology Oncology [address] [place] [phone] Tanisha Perkins MD [address] [place] [address] Health Maintenance Due Date Last Done Comments DTaP,Tdap,and Td Vaccines (1 - Tdap) 05/26/1967 Zoster Vaccines (1 of 2) 05/26/1967 Cholesterol Screening (Lipid Panel) 02/07/2022 Depression Screening 02/07/2022 Falls Risk Assessment 02/07/2022 Social Influencers of Health Screening 02/07/2022 COVID-19 Vaccine ( season) 2023 12/17/2022, 01/05/2022, 02/02/2021, Additional history exists Hypertension/CHF/CAD Annual BMP Blood Test 07/18/2025 07/18/2024, 02/25/2023, 01/23/2021, Additional history exists Hepatitis C Screening Completed 10/15/2019 Pneumococcal Vaccine: 50+ Years Completed 01/13/2023, 01/05/2017, 12/27/2015 RSV Immunization Adult Patients Completed 03/05/2023 Influenza Vaccine Completed 12/08/2023, , 12/22/2021, Additional [...] 20 months Aged Out No longer eligible based on patient's age to complete this topic Varicella Vaccines Aged Out No longer eligible based on patient's age to complete this topic Procedures Procedure Name Priority Date/Time Associated Diagnosis Comments MANUAL DIFFERENTIAL - SYSMEX WAM Routine 07/18/2024 10:26 AM EDT Polycythemia vera (CMS/HCC V24, CMS/[facility] V28) CBC WITH AUTO DIFFERENTIAL Routine 07/18/2024 10:26 AM EDT Polycythemia vera (CMS/HCC V24, CMS/HCC V28) IRON AND TIBC Routine 07/18/2024 10:26 AM EDT Polycythemia vera ([facility]/HCC V24, [facility] V28) FERRITIN Routine 07/18/2024 10:26 AM EDT Polycythemia vera ([facility]/HCC V24, [facility]/HCC V28) CBC AND DIFFERENTIAL Routine 07/18/2024 10:26 AM EDT Polycythemia vera ([facility] V24, [facility] V28) COMPREHENSIVE METABOLIC PANEL Routine 07/18/2024 10:26 AM EDT Polycythemia vera ([facility] V24, [facility] V28) from Last 3 Months Results * (ABNORMAL) Manual differential (07/18/2024 10:26 AM EDT) Neutrophils % 93.0 % LAB HEMETOLOGY METHOD 07/18/2024 12:[address] [facility] Lymphocytes % 2.0 % LAB HEMETOLOGY METHOD 07/18/2024 12:[address] [facility] Monocytes % 2.0 % LAB HEMETOLOGY METHOD 07/18/2024 12:[address] [facility] Eosinophils % 2.0 % LAB HEMETOLOGY METHOD 07/18/2024 12:[address] [facility] Basophils % 2.0 % LAB HEMETOLOGY METHOD 07/18/2024 12:[address] [facility] Neutrophils Absolute Manual 25.30(H) 1.50 - 7.00 K/mcL LAB HEMETOLOGY METHOD 07/18/2024 12:[address] [facility] Lymphocytes Absolute 0.54(L) 1.00 - 5.00 K/mcL LAB HEMETOLOGY METHOD 07/18/2024 12:[address] [facility] Monocytes Absolute Manual 0.54 0.20 - 1.00 K/mcL LAB HEMETOLOGY METHOD 07/18/2024 12:45 PM EDT [facility] Eosinophils Absolute Manual 0.54(H) 0.00 - 0.50 K/mcL LAB HEMETOLOGY METHOD 07/18/2024 12:45 PM EDT [facility] Basophils Absolute Manual 0.54(H) 0.00 - 0.20 K/mcL LAB HEMETOLOGY METHOD 07/18/2024 12:45 PM EDT [facility] Rbc Morphology Present( A) Consistent with indices, Normal for [place] LAB HEMETOLOGY METHOD 07/18/2024 12:45 PM EDT [facility] Platelet Morphology - WAM See Note(A) Normal LAB HEMETOLOGY METHOD 07/18/2024 12:45 PM EDT [facility] Comment:PLT: Large platelets seen Polychromasia Present Present( A) (none) LAB HEMETOLOGY METHOD 07/18/2024 12:45 PM EDT [facility] Ovalocytes Present 5 - 10%(A) (none) LAB HEMETOLOGY METHOD 07/18/2024 12:45 PM EDT [facility] Schistocytes Present < 5%(A) (none) LAB HEMETOLOGY METHOD 07/18/2024 12:45 PM EDT [facility] Blood Venous blood specimen / Unknown Venipuncture / Unknown 07/18/2024 10:26 AM EDT 07/18/2024 11:23 AM EDT us Tanisha Perkins MD LAB BLOOD ORDERABLE S Final Result [facility] [address] [place] [address], * (ABNORMAL) CBC auto differential (07/18/2024 10:26 AM EDT) WBC 27.2(H) 4.8 - 10.8 K/mcL LAB HEMETOLOGY [facility] RBC 8.00(H) 4.50 - 5.50 M/mcL LAB HEMETOLOGY METHOD 07/18[facility]2024 [facility] Hemoglobin 15.1 13.5 - 17.5 g/dL LAB HEMETOLOGY METHOD 07/18/2024 12[facility] Hematocrit 56.1(H) 42.0 - 54.0 % LAB HEMETOLOGY METHOD 07/18/2024 12[facility] MCV 70.0(L) 79.0 - 98.0 FL LAB HEMETOLOGY METHOD 07/18/2024 12:[address] [facility] MCH 18.8(L) 27.0 - 32.0 pcg LAB HEMETOLOGY METHOD 07/18/2024 12:[address] [facility] MCHC 26.9(L) 32.0 - 37.0 g/dL LAB HEMETOLOGY METHOD 07/18/2024 12:[address] [facility] RDW 23.0(H) 11.0 - 15.0 % LAB HEMETOLOGY METHOD 07/18/2024 12:[address] [facility] Platelets 661(H) 130 - 400 K/mcL LAB HEMETOLOGY METHOD 07/18/2024 12:45 PM EDT [facility] MPV 9.8 7.0 - 11.0 FL LAB HEMETOLOGY METHOD 07/18/2024 12[facility] NRBC 0.0 <1.0 % LAB HEMETOLOGY METHOD 07/18/2024 12:[facility] NRBC Absolute 0.00 <0.10 K/mcL LAB HEMETOLOGY METHOD 07/18/2024 12:45 PM EDT [facility] Blood Venous blood specimen / Unknown Venipuncture / Unknown 07/18/2024 10:26 AM EDT 07/18/2024 11:23 AM EDT us Tanisha Perkins MD LAB BLOOD ORDERABLE S Final Result Performing Organization Address [facility]/ZIP Co de Phone Number [facility] [address] [place] [address], [place] [phone] * (ABNORMAL) Iron and TIBC (07/18/2024 10:26 AM EDT) Iron 21(L) 50 - 160 mcg/dL LAB CHEMISTRY METHOD 07/18/2024 12:04 PM EDT [facility] TIBC 361 250 - 450 mcg/dL LAB CHEMISTRY METHOD 07/18/2024 12:04 PM EDT [facility] Iron Saturation 6(L) 20 - 50 % LAB CHEMISTRY METHOD 07/18/2024 12:04 PM EDT [facility] Blood Venous blood specimen / Unknown Venipuncture / Unknown 07/18/2024 10:26 AM EDT 07/18/2024 11:23 AM EDT us Tanisha Perkins MD LAB BLOOD ORDERABLE S Final Result Performing Organization Address City/[facility]/ZIP Co de Phone Number [facility] [address] [place] [address], [place] [phone] * Ferritin (07/18/2024 10:26 AM EDT) Ferritin 29 26 - 388 ng/mL LAB CHEMISTRY METHOD 07/18/2024 12:04 PM EDT [facility] Blood Venous blood specimen / Unknown Venipuncture / Unknown 07/18/2024 10:26 AM EDT 07/18/2024 11:23 AM EDT Tanisha Perkins MD LAB BLOOD ORDERABLE S Final Result [facility] [address] [place] [address], * (ABNORMAL) Comprehensive metabolic panel (07/18/2024 10:26 AM EDT) Sodium 133 133 - 145 mmol/L LAB CHEMISTRY METHOD 07/18/2024 12:[address] [facility] Potassium 5.1 3.5 - 5.5 mmol/L LAB CHEMISTRY METHOD 07/18/2024 12:[address] [facility] Chloride 97 96 - 110 mmol/L LAB CHEMISTRY METHOD 07/18/2024 12:[address] [facility] CO2 24 21 - 32 mmol/L LAB CHEMISTRY METHOD 07/18/2024 12:[address] [facility] Anion Gap 12(H) 3 - 11 LAB CHEMISTRY METHOD 07/18/2024 12:[address] [facility] Glucose 86 70 - 100 mg/dL LAB CHEMISTRY METHOD 07/18/2024 12:[address] [facility] BUN 117(H) 5 - 25 mg/dL LAB CHEMISTRY METHOD 07/18/2024 12:[address] [facility] Comment:Results verified by repeat testing Creatinine 6.03(H) 0.70 - 1.30 mg/dL LAB CHEMISTRY METHOD 07/18/2024 12:[address] [facility] Comment:Results verified by repeat testing eGFR 9(L) >=60 mL/min/1. 73m2 LAB CHEMISTRY METHOD 07/18/2024 12:[address] [facility] Comment:Calculation based on the Chronic Kidney Disease Epidemiology Collaboration (CKD-EPI) equation refit without adjustment for race. BUN/Creatinine Ratio 19.4 LAB CHEMISTRY METHOD 07/18/2024 12:21 PM EDT [facility] Calcium 8.6 8.5 - 10.5 mg/dL LAB CHEMISTRY METHOD 07/18/2024 12:21 PM T [facility] AST (SGOT) 16 10 - 42 unit/L LAB CHEMISTRY METHOD 07/18/2024 12:[address] [facility] ALT (SGPT) 14 10 - 60 unit/L LAB CHEMISTRY METHOD 07/18/2024 12:[address] [facility] Alkaline Phosphatase 155(H) 42 - 121 unit/L LAB CHEMISTRY METHOD 07/18/2024 12:[address] [facility] Total Protein 6.8 6.0 - 8.0 g/dL LAB CHEMISTRY METHOD 07/18/2024 12:[address] [facility] Albumin 3.1(L) 3.2 - 5.0 g/dL LAB CHEMISTRY METHOD 07/18/2024 12:[address] [facility] Total Bilirubin 0.5 0.0 - 1.4 mg/dL LAB CHEMISTRY METHOD 07/18/2024 12:[address] [facility] Blood Venous blood specimen / Unknown Venipuncture / Unknown 07/18/2024 10:26 AM EDT 07/18/2024 11:23 AM EDT Tanisha Perkins MD LAB BLOOD ORDERABLE S Final Result [facility] [address] [place] [address], from Last 3 Months Insurance [facility] Care Teams Apprentice Photographer Relationship Specialty [place] [address] [place] [address] PCP - General Pediatrics 09/19/18
--- OUTSIDE RECORDS SUMMARY | 2024-09-05 15:22 | XMS_ITS | Clinical Summary ---
Author Organization [employer] Address [address] [place] [address] [address] [place] [address] Care Team Providers Care Internet Architect Name Role Phone Sherman Miller MD Primary Care Provider [phone]- [phone] Allergies No known active allergies Medications Aspirin [...] 2023, LVEF 40 to 45%. Atherosclerosis of [place] co ronary artery of [place] heart without angina pectoris 11/12/2022 Overview (03/08/2024): Non-ST elevation [place] October 2022, 2 drug-eluting stents to the LAD BPH with obstruction/lower urinary tract symptom s 06/19/2018 Polycythemia vera 06/19/2018 Overview (03/08/2024): Therapeutic phlebotomies at [facility] Social History Tobacco Use Types Packs/Day Years [...] DTaP/Tdap/Td Vaccines (1 - Tdap) 03/04/2006 03/03/2006 COVID-19 Vaccine (6 - season) 2023 12/17/2022, 01/05/2022, 02/02/2021, Additional history exists Tobacco Screening 03/08/2025 03/08/2024 Pneumococcal Vaccine: 50+ Years Completed 01/13/2023, 01/05/2017, 12/27/2015, Additional history exists RSV Patients and Patients Aged 60 years or older Completed 03/05/2023 Influenza Vaccine Completed 12/08/2023, , [...] patient's age to complete this [place] [address] [place] [address] [employer] P[employer] [facility] [employer] Care Teams Internet Architect Relationship Specialty Start Date End Date Sherman Miller MD [address] [place] [address], [address] [place], [place] [phone] PCP - General Internal Medicine 12/29/23
--- OUTSIDE RECORDS SUMMARY | 2024-09-05 15:22 | XMS_ITS | Clinical Summary ---
Author Organization [facility] Address [address] [place] [address] Care Team Providers Care Rivet Spinner Name Role Phone Sherman Miller MD Primary Care Provider [phone] [phone] Allergies No known active allergies Medications Medication [...] 67 01/26/2023 10:03 AM EST Temperature 36.7 C (98.1 F) 01/26/2023 10:03 AM EST Respiratory Rate - - Oxygen Saturation 99% [...] series) 05/26/2023 Influenza Vaccine (Season Ended) 2024 12/22/2021, 12/12/2020, 01/05/2017, Additional history exists Pneumococcal Vaccine Completed 01/05/2017, 12/27/19 16 Hepatitis C Screening Completed 10/15/2019 Hepatitis B Vaccines Aged Out No long er eligible based on patient's age to complete this topic RSV Ped < 20 months Aged Out No longe r eligible based on patient's age to complete this topic Care Teams Rivet Spinner Relationship Specialty Start Date End Date Sherman Miller MD [address] [place] [address] PCP - General Internal Medicine 10/10/19
[2024-09-05 15:27] VITALS: BMI 23.5
== END 2024-09-05 15:36 | disposition home or self-care (01) ==
LOC: HO.HOS 15:00
PROVIDERS: PCP Internal Medicine; Visit Provider Physician Assistant
DX: S76.011A Strain of muscle, fascia and tendon of right hip, initial encounter (principal)
CPT/HCPCS: 99203; G2211

== ENCOUNTER → 2024-09-05 15:06 | Outpatient (BNV) | payer MEDICARE, SELFPAY | PROVIDERS: Absent Provider Internal Medicine Nephrology; Visit Provider Radiology Diagnostic Radiology | DX: M25.551 Pain in right hip (principal) | CPT/HCPCS: 73502 ==

== ENCOUNTER 2024-09-05 15:39 | Outpatient (REF) | payer MEDICARE, SELFPAY ==
--- NOTE | ~2024-09-05 | XR_ITS ---
EXAMINATION: XR HIP 2 OR MORE VIEWS RIGHT HISTORY: M25.552 - Pain in right hip COMPARISON: There are no prior studies available for comparison. FINDINGS: A single AP view of the pelvis and two views of the right hip are submitted. The bones are osteopenic. There is no fracture or dislocation. There is mild joint space narrowing. The soft tissues are unremarkable. XR/XR hip RT min 2V IMPRESSION: Mild joint space narrowing. Electronically signed by: Armin Maxwell MD 09/05/2024 03:52 PM EDT
[2024-09-05 17:04] LABS: Anion Gap 19 (12-20); Blood Urea Nitrogen 101 mg/dL (9-16); Calcium 7.8 mg/dL (8.4-10.2); Carbon Dioxide 24 mmol/L (22-29); Chloride 96 mmol/L (96-108); Estimated Glomerular Filt Rate 11; Potassium 4.5 mmol/L (3.3-5.1); Sodium 134 mmol/L (135-145)
== END 2024-09-05 15:40 | disposition home or self-care (01) ==
LOC: HO.HOSX 15:39
PROVIDERS: Absent Provider Internal Medicine Nephrology; Visit Provider Physician Assistant
DX: S76.011A Strain of muscle, fascia and tendon of right hip, initial encounter (principal); N17.9 Acute kidney failure, unspecified; N18.31 Chronic kidney disease, stage 3a; R80.9 Proteinuria, unspecified; E55.9 Vitamin D deficiency, unspecified
CPT/HCPCS: 36415; 73502; 80051; 82310; 82565; 84520; 99202

== ENCOUNTER 2024-09-12 15:43 | Outpatient (AMB) | payer MEDICARE, SELFPAY ==
--- OUTSIDE RECORDS SUMMARY | 2024-09-12 15:46 | XMS_ITS | Clinical Summary ---
Author Organization [facility] Address [address] [place] [address] Care Team Providers Care Buttonholer Name Role Phone Sherman Miller MD Primary Care Provider [phone] [phone] Allergies No known active allergies Medications Medication [...] 1-dose 75+ series) 05/26/2023 Influenza Vaccine (#1) 2024 2, 12/12/2020, 01/05/2017, Additional history exists Pneumococcal Vaccine Completed 01/05/2017, 12/27/19 16 Hepatitis C Screening Completed 10/15/2019 Hepatitis B Vaccines Aged Out No long er eligible based on patient's age to complete this topic RSV Ped < 20 months Aged Out No longe r eligible based on patient's age to complete this topic Care Teams Buttonholer Relationship Specialty Start Date End Date Sherman Miller MD [address] [place] [address] PCP - General Internal Medicine 10/10/19
--- OUTSIDE RECORDS SUMMARY | 2024-09-12 15:46 | XMS_ITS | Clinical Summary ---
Author Organization [email or web address] Address [address] [place] [address] [address] [place] [address] Care Team Providers Care Asphalt Paver Name Role Phone Sherman Miller MD Primary Care Provider [phone]- [phone] Allergies No known active allergies Medications Aspirin [...] 2023, LVEF 40 to 45%. Atherosclerosis of [place] co ronary artery of [place] heart without angina pectoris 11/12/2022 Overview (03/08/2024): [place]ST elevation [place] October 2022, 2 drug-eluting stents to the LAD BPH with obstruction/lower urinary tract symptom s 06/19/2018 Polycythemia vera 06/19/2018 Overview (03/08/2024): [facility]bot[facility] at [facility] Social History Tobacco Use Types Packs/Day Years [...] 2023 12/17/2022, 01/05/2022, 02/02/2021, Additional history exists Influenza Vaccine (#1) 2024 , 12/09/2022, 12/22/2021, Additional history exists Tobacco Screening 03/08/2025 03/08/2024 Pneumococcal Vaccine: 50+ Years Completed 01/13/2023, 01/05/2017, 12/27/2015, Additional history exists RSV Patients and Patients Aged 60 years or older Completed 03/05/2023 HIB Vaccines Aged Out No longer eligi [...] patient's age to complete this topic Insurance [employer] [id number] [employer] [facility] [employer] Care Teams Asphalt Paver Relationship Specialty Start Date End Date Sherman Miller MD [address] [place] [address], [address] [place] [address] PCP - General Internal Medicine 12/29/23
--- OUTSIDE RECORDS SUMMARY | 2024-09-12 15:46 | XMS_ITS | Clinical Summary ---
Author Organization [facility] Address [address] [place] [address] Phone Care Team Providers Care Pathologist Name Role Phone Sherman Miller MD Primary Care Provider [phone]- [phone] Allergies No known active allergies Medications finasteride [...] mouth 1 (one) time each day. Active [id number] liver-vit A-D3 240-1,000 mg capsule Take 1 [...] Description 07/18/2024 10:00 AM EDT Office Visit [facility] Hematology Oncology [address] [place] [address] Tanisha Perez MD Polycythemia vera ([facility] V24, [facility] V28) (Primary Dx); Essential thrombocytosis ([facility] V24, [facility] V28) 06/27/2024 Telephone [facility] Hematology Oncology [address] [place] [phone] Tanisha Perez MD from Last 3 Months Immunizations Name Administration Dates Next Due Moderna SARS-CoV-2 COVID-19, mRNA, LNP-S, preservative free 04/16/2020,03/19/2020 Surgical History Surgery Date Site/Laterality Comments ANGIOPLASTY PROCEDURE:ANGIOPLASTY Medical History Medical History Date Comments Heart attack ([facility] V24, [facility] V28) DX:Heart attack ([facility]) Social History Tobacco Use Types Packs/Day Years [...] Description 05/06/2025 10:15 AM EST Office Visit [facility] Hematology Oncology [address] [place] [phone] Tanisha Perkins MD [address] [place] [address] Health Maintenance Due Date Last Done Comments DTaP,Tdap,and Td Vaccines (1 - Tdap) 05/26/1967 Zoster Vaccines (1 of 2) 05/26/1967 Cholesterol Screening (Lipid Panel) 02/07/2022 Depression Screening 02/07/2022 Falls Risk Assessment 02/07/2022 Social Influencers of Health Screening 02/07/2022 COVID-19 Vaccine ( season) 2023 12/17/2022, 01/05/2022, 02/02/2021, Additional history exists Influenza Vaccine (#1) 2024 , 12/09/2022, 12/22/2021, Additional history exists Hypertension/CHF/CAD Annual BMP Blood Test 07/18/2025 07/18/2024, 02/25/2023, 01/23/2021, Additional history exists Hepatitis C Screening Completed 10/15/2019 Pneumococcal Vaccine: 50+ Years Completed 01/13/2023, 01/05/2017, 12/27/2015 RSV Immunization Adult Patients Completed 03/05/2023 HIB Vaccines Aged Out No [...] Routine 07/18/2024 10:26 AM EDT Polycythemia vera ([facility] V24, [facility] V28) CBC WITH AUTO DIFFERENTIAL Routine 07/18/2024 10:26 AM EDT Polycythemia vera (CMS/HCC V24, CMS/HCC V28) IRON AND TIBC Routine 07/18/2024 10:26 AM EDT Polycythemia vera ([facility] V24, [facility] V28) FERRITIN Routine 07/18/2024 10:26 AM EDT Polycythemia vera ([facility] V24, [facility] V28) CBC AND DIFFERENTIAL Routine 07/18/2024 10:26 AM EDT Polycythemia vera ([facility] V24, [facility] V28) COMPREHENSIVE METABOLIC PANEL Routine 07/18/2024 10:26 AM EDT Polycythemia vera ([facility] V24, [facility] V28) from Last 3 Months Results * (ABNORMAL) Manual differential (07/18/2024 10:26 AM EDT) Neutrophils % 93.0 % LAB HEMETOLOGY METHOD 07/18/2024 12:45 PM [facility] Lymphocytes % 2.0 % LAB HEMETOLOGY METHOD 07/18/2024 12:45 PM [facility] Monocytes % 2.0 % LAB HEMETOLOGY METHOD 07/18/2024 12:45 PM [facility] Eosinophils % 2.0 % LAB HEMETOLOGY METHOD 07/18/2024 12:45 PM [facility] Basophils % 2.0 % LAB HEMETOLOGY METHOD 07/18/2024 12:45 PM [facility] Neutrophils Absolute Manual 25.30(H) 1.50 - 7.00 K/mcL LAB HEMETOLOGY METHOD 07/18/2024 12:45 PM [facility] Lymphocytes Absolute 0.54(L) 1.00 - 5.00 K/mcL LAB HEMETOLOGY METHOD 07/18/2024 12:45 PM [facility] Monocytes Absolute Manual 0.54 0.20 - 1.00 K/mcL LAB HEMETOLOGY METHOD 07/18/2024 12:45 PM EDT [facility] Eosinophils Absolute Manual 0.54(H) 0.00 - 0.50 K/mcL LAB HEMETOLOGY METHOD 07/18/2024 12:45 PM EDT [facility] Basophils Absolute Manual 0.54(H) 0.00 - 0.20 K/mcL [facility] 07/18/2024 12:45 PM EDT [facility] Rbc Morphology Present( A) Consistent with indices, Normal for LAB [facility] 07/18/2024 12:45 PM EDT [facility] Platelet Morphology - W[facility] See Note(A) Normal [facility] 07/18/2024 12:45 PM EDT [facility] Comment:PLT: Large platelets seen Polychromasia Present Present( A) (none) LAB HEMETOLOGY METHOD 07/18/2024 12:45 PM EDT [facility] Ovalocytes Present 5 - 10%(A) (none) LAB HEMETOLOGY METHOD 07/18/2024 12:45 PM EDT [facility] Schistocytes Present < 5%(A) (none) LAB HEMETOLOGY METHOD 07/18/2024 12:45 PM EDT [facility] Blood Venous blood specimen / Unknown Venipuncture / Unknown 07/18/2024 10:26 AM EDT 07/18/2024 11:23 AM EDT us Subramony SubJustice CATHERINE LAB BLOOD ORDERABLE S Final Result [facility] [address] [place] [address], * (ABNORMAL) CBC auto differential (07/18/2024 10:26 AM EDT) WBC 27.2(H) 4.8 - 10.8 K/mcL [facility] RBC 8.00(H) 4.50 - 5.50 M/mcL LAB [facility]Y [facility] Hemoglobin 15.1 13.5 - 17.5 g/dL LAB [facility]OLOGY METHOD 07/18[facility]2024 [facility] Hematocrit 56.1(H) 42.0 - 54.0 % LAB HEMETOLOGY METHOD 07/18/2024 12:45 PM [facility] MCV 70.0(L) 79.0 - 98.0 FL LAB HEMETOLOGY METHOD 07/18/2024 12:45 PM [facility] MCH 18.8(L) 27.0 - 32.0 pcg LAB HEMETOLOGY METHOD 07/18[facility]2024 [facility] MCHC 26.9(L) 32.0 - 37.0 g/dL LAB HEMETOLOGY METHOD 07/18/2024 12:45 PM [facility] RDW 23.0(H) 11.0 - 15.0 % LAB HEMETOLOGY METHOD 07/18/2024 12:45 PM [facility] Platelets 661(H) 130 - 400 K/mcL LAB HEMETOLOGY METHOD 07/18/2024 12[facility] MPV 9.8 7.0 - 11.0 FL LAB HEMETOLOGY METHOD 07/18/2024 12[facility] NRBC 0.0 <1.0 % LAB H[facility]OLOGY METHOD [facility]/18[facility]24 [facility] NRBC Absolute 0.00 <0.10 K/mcL LAB HEMETOLOGY METHOD 07/18/2024 12:45 PM EDT [facility] Blood Venous blood specimen / Unknown Venipuncture / Unknown 07/18/2024 10:26 AM EDT 07/18/2024 11:23 AM EDT us Tanisha Perkins MD LAB BLOOD ORDERABLE S Final Result Performing Organization Address [facility]/ZIP Co de Phone Number [facility] [address] [place] [address], [place] [phone] * (ABNORMAL) Iron and TIBC (07/18/2024 10:26 AM EDT) Iron 21(L) 50 - 160 mcg/dL LAB CHEMISTRY METHOD 07/18/2024 12:04 PM EDT [facility] TIBC 361 250 - 450 mcg/dL LAB CHEMISTRY METHOD 07/18/2024 12:04 PM EDT [facility] Iron Saturation 6(L) 20 - 50 % LAB CHEMISTRY METHOD 07/18/2024 12:04 PM EDT [facility] Blood Venous blood specimen / Unknown Venipuncture / Unknown 07/18/2024 10:26 AM EDT 07/18/2024 11:23 AM EDT us Tanisha Perkins MD LAB BLOOD ORDERABLE S Final Result Performing Organization Address [facility] de Phone Number [facility] [address] [place] [address], [place] [phone] * Ferritin (07/18/2024 10:26 AM EDT) Ferritin 29 26 - 388 ng/mL LAB CHEMISTRY METHOD 07/18/2024 12:04 PM EDT [facility] Blood Venous blood specimen / Unknown Venipuncture / Unknown 07/18/2024 10:26 AM EDT 07/18/2024 11:23 AM EDT Tanisha Perkins MD LAB BLOOD ORDERABLE S Final Result [facility] [address] [place] [address], [place] [phone] * (ABNORMAL) Comprehensive metabolic panel (07/18/2024 10:26 AM EDT) Sodium 133 133 - 145 mmol/L LAB CHEMISTRY METHOD 07/18/2024 12:21 PM [facility] Potassium 5.1 3.5 - 5.5 mmol/L LAB CHEMISTRY METHOD 07/18/2024 12:21 PM [facility] Chloride 97 96 - 110 mmol/L LAB CHEMISTRY METHOD 07/18/2024 12:21 PM [facility] CO2 24 21 - 32 mmol/L LAB CHEMISTRY METHOD 07/18/2024 12:21 PM [facility] Anion Gap 12(H) 3 - 11 LAB CHEMISTRY METHOD 07/18/2024 12:21 PM [facility] Glucose 86 70 - 100 mg/dL LAB CHEMISTRY METHOD 07/18/2024 12:21 PM [facility] BUN 117(H) 5 - 25 mg/dL LAB CHEMISTRY METHOD 07/18/2024 12:21 PM [facility] Comment:Results verified by repeat testing Creatinine 6.03(H) 0.70 - 1.30 mg/dL LAB CHEMISTRY METHOD 07/18/2024 12:21 PM [facility] Comment:Results verified by repeat testing eGFR 9(L) >=60 mL/min/1. 73m2 LAB CHEMISTRY METHOD 07/18/2024 12:21 PM [facility] Comment:Calculation based on the Chronic Kidney Disease Epidemiology Collaboration (CKD-EPI) equation refit without adjustment for race. BUN/Creatinine Ratio 19.4 LAB CHEMISTRY METHOD 07/18/2024 12:21 PM [facility] Calcium 8.6 8.5 - 10.5 mg/dL LAB CHEMISTRY METHOD 07/18/2024 12:21 PM [facility] AST (SGOT) 16 10 - 42 unit/L LAB CHEMISTRY METHOD 07/18/2024 12:21 PM [facility] ALT (SGPT) 14 10 - 60 unit/L LAB CHEMISTRY METHOD 07/18/2024 12:21 PM [facility] Alkaline Phosphatase 155(H) 42 - 121 unit/L LAB CHEMISTRY METHOD 07/18/2024 12:21 PM [facility] Total Protein 6.8 6.0 - 8.0 g/dL LAB CHEMISTRY METHOD 07/18/2024 12:21 PM [facility] Albumin 3.1(L) 3.2 - 5.0 g/dL LAB CHEMISTRY METHOD 07/18/2024 12:21 PM [facility] Total Bilirubin 0.5 0.0 - 1.4 mg/dL LAB CHEMISTRY METHOD 07/18/2024 12:21 PM [facility] Blood Venous blood specimen / Unknown Venipuncture / Unknown 07/18/2024 10:26 AM EDT 07/18/2024 11:23 AM EDT us Subramony SubJustice CATHERINE LAB BLOOD ORDERABLE S Final Result [facility] [address] [place] [address], from Last 3 Months Insurance [facility] [employer] Care Teams Pathologist Relationship Specialty Start Date End Date Sherman Miller MD [address] [place] [address] PCP - General Pediatrics 09/19/18
--- OUTSIDE RECORDS SUMMARY | 2024-09-12 15:46 | XMS_ITS | Clinical Summary ---
Author Organization [facility] Facility Address [address] [address] Care Team Providers Care Cutter Barrel Drum Name Role Phone Unavailable Primary Care Provider [...] Due Date Last Done Comments Influenza Vaccine (#1) 2024 2, 01/05/2017, 12/27/2015, Additional history exists Pneumococcal Vaccine: 50+ Years Completed 01/05/2017, 12/27/2015 Hepatitis B Vaccine Aged Out No longe r eligible based on patient's age to complete this topic Insurance [facility]
--- NOTE | 2024-09-12 16:10 | HO.NEPHOV ---
Vital Signs 09/12/24 16:12 Height 5 ft 5 in Weight 140 lb BMI 23.3 BP 102/60 Blood Pressure Location Lt brachial Position Sitting Intake Visit Reasons: FU-LVM Accompanied by: Self / Same As Patient Allergies No Known Allergies Allergy (Verified 09/12/24 16:11) HPI Comments Details: Pat was seen in follow up for his decompensated CKD. He has H/O CAD needing PCI. He also has H/O ischemic cardiomyopathy and has been closely followed up by Dr Vizcaino. He had been on anti platelet medication as well as jardiance as well as Entresto. Recently he had diarrhea with development of hyperkalemia as well as ETELVINA. It was discontinued by his curber due to hyperkalemia and ETELVINA . He also has been having edema without any other signs of heart failure. Urine studies at that time showed nephrotic range proteinuria. He has H/O multiple episodes of nephritis in the past. He denies hematuria, dysuria, hemoptysis, hemetemesis, melena, sinusitis, recent antibiotics, regular NSAID's, hypercalcemia, new bone pain, H/O malignancies. He continues to have significantly lower GFR . 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 He under went W/U including renal biopsy. He is here for follow up. He is concerned about his drop in renal function. His edema and SOB has resolved. He is not taking Jardiance or Entresto now [facility] Medical History (Updated 09/05/24 @ 15:34 by Brayan Bradley PA-C) Ischemic cardiomyopathy Atherosclerosis of [place] coronary artery of [place] heart without angina pectoris Acne rosacea Elevated serum creatinine Primary osteoarthritis of right knee Right hand weakness Onychomycosis of toenail BPH with obstruction/lower urinary tract symptoms Polycythemia vera Surgical History H/O repair of rotator cuff Family History Mother Heart attack Father Colon cancer Social History Alcohol intake: never Patient Tobacco Use Status: Never used Tobacco 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 Review of Systems Const All systems reviewed & are unremarkable except as noted in HPI and below Physical Exam Vital Signs: Last Vital Signs BP 102/60 09/12/24 16:12 BMI result Body Mass Index 23.3 Const General: comfortable and no acute distress Orientation/consciousness: patient oriented x3 HEENT Head: Yes normocephalic Mouth: Normal oral and palatal mucosa present Eyes EOM: EOMs intact bilaterally Neck Neck: Yes supple Resp Auscultation: clear to auscultation bilaterally Cardio Jugular venous distension: no JVD Rate: regular rate GI Palpation (GI): Soft to palpation Auscultation: normal bowel sounds General: Yes no CVA tenderness Back/Spine/Pelvis Back: no CVA tenderness Skin General skin exam: no rashes or lesions noted Neuro General: patient oriented x3 and moves all extremities Extrem General: Yes no pedal edema Results Reviewed Nephrology Results: Hgb, (14.0-18.0) 16.5 g/dl 05/31/24 WBC, (4.8-10.8) 25.8 X10*3/uL H 05/31/24 Plt Count, (160-400) 539 X10*3/uL H 05/31/24 Sodium, (135-145) 134 mmol/L L 09/05/24 Potassium, (3.3-5.1) 4.5 mmol/L 09/05/24 Chloride, (96-108) 96 mmol/L 09/05/24 Carbon Dioxide, (22-29) 24 mmol/L 09/05/24 BUN, (9-16) 101 mg/dL H 09/05/24 Creatinine, (0.5-1.4) 4.98 mg/dL H* 09/05/24 Calcium, (8.4-10.2) 7.8 mg/dL L 09/05/24 Phosphorus, (2.7-4.5) 4.3 mg/dL 05/31/24 PTH Intact, (8.7-77.1) 361.2 pg/mL H 05/31/24 Assessment & Plan Assessment & Plan (1) CKD (chronic kidney disease) stage 5, GFR less than 15 ml/min: Code(s): N18.5 - Chronic kidney disease, stage 5 Category: Medical Plan: Pat has CKD H/O recurrent nephritis as well as vascular disease. He has decompensated CKD. His urine output is good. 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 His edema has resolved after I increased lasix to 80 mg bid and added Metolazone 5 mg daily for 7 days. He is off Entresto and Jardiance. He does not take NSAID's. He does not need renal replacement now but should remain on a low K diet. I reduced his lasix to 80 mg bid alternating with 80 mg daily every other day & discussed with him that his renal function can potentially worsen with time and will need renal replacement/transplant at that time. He is on Vitamin D as well. Arranged dialysis education. F/U labs ordered. All questions answered and follow up given Orders: Orders Blood Urea Nitrogen 6 Weeks N18.5 - Chronic kidney disease, stage 5 PSA,Total (Free>4and<10) 3 Weeks N17.9 - Acute kidney failure, unspecified, N18.31 - Chronic kidney disease, stage 3a Creatinine 6 Weeks N18.5 - Chronic kidney disease, stage 5 Electrolytes 6 Weeks N18.5 - Chronic kidney disease, stage 5 Calcium 6 Weeks N18.5 - Chronic kidney disease, stage 5 Coding Level of Care Code Est Pt Level 4 (54504) Diagnoses CKD (chronic kidney disease) stage 5, GFR less than 15 ml/min N18.5
[2024-09-12 16:12] VITALS: BP 102/60; BMI 23.3
== END 2024-09-12 16:27 | disposition home or self-care (01) ==
LOC: HO.HKA 15:44
PROVIDERS: PCP Internal Medicine; Visit Provider Internal Medicine Nephrology
DX: N18.5 Chronic kidney disease, stage 5 (principal)
CPT/HCPCS: 99214

== ENCOUNTER → 2024-09-12 15:43 | Outpatient (BNVA) | payer MEDICARE, SELFPAY | PROVIDERS: PCP Internal Medicine; Visit Provider Internal Medicine Nephrology | DX: N18.5 Chronic kidney disease, stage 5 (principal) | CPT/HCPCS: 99212 ==

== ENCOUNTER 2024-09-20 12:57 | Outpatient (RCR) | payer MEDICARE, SELFPAY ==
--- NOTE | 2024-09-20 13:45 | MHC.PT.EP ---
[facility] [place] Office [place] Office [place] Office [address] Gabriela Pan [address] [phone] F: [phone] F: [phone] F: [phone] F: [phone] Physical Therapy Plan of Care Date of Evaluation: 09/20/24 Date of Surgery: NA Diagnosis: Strain of flexor muscle of R hip Assessment: Pat is a 74 year old male who is referred to PT for strain of flexor muscle of R hip . He reports of injuring his R hip while playing soft ball on 07/20/24. His symptoms have gotten better but still present. On PT examination he presents with TTP over R hip ASIS- superior aspect, 7/10 pain with stair negotiation, walking up and down hill and running, decreased R hip ROM, decreased R hip strength, altered posture and gait. He lives with his and is independent with all ADLS but has pain with them and modifies them. 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 He would benefit from skilled PT to address the aforementioned impairments and improve tolerance to functional activities. Frequency and Duration: The patient will be seen 2/week for 5 weeks Short Term Goals: 1. Pt will have 50% decrease in pain which will enable him to wake up in the morning without pain in 2 weeks 2. Pt will be able to move his hip through all planes of motion without pain which will enable him to negotiate stairs without pain in 3 weeks Long-Term Goals: 1. Pt will demonstrate an increase in muscle strength by 1 grade which will enable him to walk up and down hill without pain in 5 weeks 2. Pt will be independent with all HEP and return to PLOF in 5 weeks Treatment Plan: Modalities to reduce pain, spasms and effusion. Manual therapy to restore motion and function. Therapeutic exercise to improve strength and flexibility. Neuromuscular re-education for posture and balance. Therapeutic activities to return to functional activities of daily living. Electronically signed by: Please sign and return to therapist. Thank you for your referral.
--- NOTE | 2024-10-29 08:26 | MHC.PT.DC ---
[facility] [place] Office [place] Office [place] Office [address] [phone] F: [phone] F: [phone] F: [phone] F: [phone] Physical Therapy Discharge Report Diagnosis: Strain of flexor muscle of R hip Date of Surgery: NA Date of Evaluation: 09/20/24 Date of Discharge: 10/29/24 Treatments to Date: 1 Cancellations to Date: 2 No Shows to Date: 0 Discharge Status: Patient Elected to Stop Discharge Summary: Pauline attended his evaluation and canceled 2 visits due to change in work schedule. He was suppose to call back to re-schedule his appointment however has he has not called back in over 2 weeks. He is therefore being d/c from PT. Electronically signed by: Lisa De La Fuente PT DPT Please sign and return to therapist. Thank you for your referral.
== END 2024-10-29 08:27 | disposition home or self-care (01) ==
LOC: HO.PT 12:57
PROVIDERS: PCP Internal Medicine; Visit Provider Physician Assistant
DX: M25.551 Pain in right hip (principal); S76.011D Strain of muscle, fascia and tendon of right hip, subsequent encounter; W03.XXXD Other fall on same level due to collision with another person, subsequent encounter
CPT/HCPCS: 97110; 97161

== ENCOUNTER 2024-12-11 15:13 | Outpatient (REF) | payer MEDICARE, SELFPAY ==
--- OUTSIDE RECORDS SUMMARY | 2024-12-11 18:27 | XMS_ITS | Clinical Summary ---
Author Organization [facility] Address [address] [place] [address] Phone Care Team Providers Care Education Trainer Name Role Phone Sherman Miller MD Primary Care Provider [phone] Tate Moulton MD Unavailable Tanisha Perkins MD Unavailable [phone] Harsh Ross MD Unavailable [phone] Suellen Mccann MD Unavailable [phone] Chante Vizcaino MD Unavailable [phone] Allergies No known active allergies Medications finasteride (PROSCAR) 5 mg tablet Take 5 mg by mouth daily. Active tamsulosin (FLOMAX) 0.4 mg Cap Take 0.4 mg by mouth 2 (two) times a day. Active atorvastatin (LIPITOR) 80 MG tablet Take [...] Take 500 mg by mouth daily. Active furosemide (LASIX) 40 MG tablet Take 80 mg by mouth 2 (two) times a day. 05/08/2024 Active metOLazone (ZAROXOLYN) 5 MG tablet Take 1 tablet by mouth every morning. For 5 days 06/29/2024 Active clopidogrel (PLAVIX) 75 mg tablet Take 1 tablet by mouth every morning. 07/21/2024 Active oxyCODONE-aceta minophen (PERCOCET) 5-325 mg per tabletIndicatio ns:Strain of groin, right, initial encounter Take 1 tablet by mouth nightly at bedtime as needed for pain (specific location in comments). Partial fill ok 7 tablet 08/02/2024 Active Active Problems Problem Noted Date Diagnosed [...] leave this up to cardiology. Atherosclerosis of [place] co ronary artery of [place] heart without angina pectoris 11/12/2022 Overview (11/12/2022): Non-ST elevation [place] October 2022, 2 drug-eluting stents to the [...] compression. He will follow-up as scheduled with [facility]. Polycythemia vera 06/19/2018 Overview (02/25/2023): Therapeutic phlebotomies at [facility] Assessment & Plan (04/10/2024 12:02 PM EST): Hemoglobin has gone up a little bit. He will follow-up as planned with hematology next month. He is likely going to be due for another phlebotomy. Assessment & Plan (02/25/2023 10:32 AM EST): Doing well, next due to have CBC checked at [facility] in about 6 weeks. Assessment & Plan (02/24/2022 10:45 AM EST): Clinically is doing well. Follow-up as planned with hematology Assessment & Plan (10/23/2020 3:44 PM EDT): Clinically is doing well. 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 Goal is to maintain hemoglobin less than [...] Encounters Date Type Department Care Team Description 11/27/[address] [place] [address] Sherman Miller MD Referral 11/26/[address] [place] [place] [address] Elle Sherman, manager multimedia 09/10/[address] [place] [address] Sherman Miller MD Referral from Last 3 Months Immunizations Immunization Administration Dates Next Due COVID-19 (Pre-12/27) Moderna Vaccine, mRNA, PF 0 04/16/2020,03/19/2020 INFLUENZA, SPLIT VIRUS, TRIVALENT PF 12/08/2023 Influenza High-Dose Quadrivalent Preservative Fr ee IM 12/12/2020 Influenza High-Dose Trivalent Preservative Free IM 01/05/2015 Influenza Quadrivalent Preservative Free IM 07/2022,12/22/2021 Influenza Trivalent Adjuvanted Preservative free IM 01/05/2017,12/27/2015 Pneumococcal conjugate PCV13 12/27/2015 Pneumococcal conjugate PCV20 01/13/2023 Pneumococcal polysaccharide PPSV23 01/05/2017 RSV Vaccine (bivalent) 03/05/2023 Family History Medical History Relation Comments No Known Problems Daughter 1 teacher for [employer] No Known Problems Daughter 2 teacher, [employer] Colon cancer Father Aneurysm Mother No [...] at Not on file Legal Sex Male 10:04 PM EDT Gender Identity Not on file Sexual Orientation Not on file 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 Not on file Not on file Last Filed Vital Signs Vital Sign Reading Time Taken Comments Blood Pressure 116/78 08/02/2024 4:14 PM EDT Pulse 78 08/02/2024 4:14 PM EDT Temperature 36.8 C (98.2 F) 08/02/2024 4:14 PM EDT Respiratory Rate 18 11/12/2022 8:21 AM EDT Oxygen Saturation 97% 08/02/2024 4:14 PM EDT Inhaled Oxygen Concentration - - Weight 64.9 kg (143 lb) 08/02/2024 4:14 PM EDT Height 164.4 cm (5' 4.72 ) 08/02/2024 4:14 PM ED T Body Mass Index 24 08/02/2024 4:14 PM EDT Plan of Treatment Health Maintenance Due Date Last Done Comments Adult Td,Tdap Booster 1950 DEPRESSION SCREENING 02/25/2024 02/24/2023 INFLUENZA VACCINE (#1) 2024 , 12/09/2022, 12/22/2021, Additional history exists COVID-19 VACCINE ( season) 2024 12/17/2022, 01/05/2022, 02/02/2021, Additional history exists POTASSIUM LEVEL 06/18/2025 06/18/2024, 02/0 06/2024, 04/05/2024, [...] age to complete this topic MENINGOCOCCAL VACCINES (B) Aged Out N o longer eligible based on patient's age to complete this topic Medical Devices Not on file Procedures Procedure Name Priority Date/Time Associated Diagnosis Comments BASIC METABOLIC PANEL Routine 06/18/2024 2:42 PM EDT Acute kidney injury HEPATITIS C ANTIBODY, QUALITATIVE Routine 10/15/2019 10:49 AM EDT Encounter for Medicare annual wellness exam from Last 3 Months or Most Recently Relevant to Health Maintenance Results * (ABNORMAL) Basic metabolic panel (06/18/2024 2:42 PM EDT) SODIUM 139 133 - 146 mmol/L [facility] CHLORIDE 106 96 - 108 mmol/L [facility] POTASSIUM 5.2(H) 3.3 - 5.1 mmol/L [facility] CO2 22 21 - 35 mmol/L [facility] BUN 71(H) 6 - 19 mg/dL [facility] CREATININE 4.70(H) 0.5 - 1.5 mg/dL [facility] GLUCOSE 82 70 - 99 mg/dL [facility] CALCIUM 8.3(L) 8.4 - 10.3 mg/dL [facility] EGFR 12(L) >59 mL/min/1.7 3m2 [facility] Comment:Estimated glomerular filtration rate calculated using the CKD-EPI refit equation. ANION GAP 16 10 - 20 mmol/L [facility] Blood 06/18/2024 2:42 PM EDT 06/18/2024 2:44 PM EDT us Rigoberto Schuster MD LAB BLOOD ORDERABLES Final Resu lt [address] [address] * Hepatitis C antibody, qualitative (10/15/2019 10:49 AM EDT) HCV NON-REACTIV E NON-REACTI VE [facility] Blood 10/15/2019 10:4 9 AM EDT 10/15/2019 11:03 AM EDT us Sherman Miller MD LAB BLOOD ORDERABLES Final Result Performing Organization Address City/[facility] Co de Phone Number [address] [address] from Last 3 Months or Most Recently Relevant to Health Maintenance Insurance [employer] RE[employer] RE[employer] RE[employer] RE[employer]ACEMENT Care Teams Education Trainer Relationship Specialty Start Date End Date Sherman Miller MD [address] [place] [address], [address] [place] [address] [email or web address] PCP - General Internal Medicine 05/15/18 Tate Moulton MD [address] [place] [address], [address] [place] [address] [email or web address] Urology 06/19/18 Tanisha Perkins MD [address] [place] [phone] [email or web address] Oncology 06/19/18 Harsh Ross MD [address] [address] Orthopedic Surgery 10/15/19 Suellen Mccann MD [address] [address] Gastroenterology 10/23/20 Chante Vizcaino MD [address] [place] [phone] [email or web address] Cardiology 11/12/22 Additional Source Comments The information contained in this document represents components of the legal health record. It is not the complete legal health record.[facility]
--- OUTSIDE RECORDS SUMMARY | 2024-12-11 18:27 | XMS_ITS | Encounter Summary ---
Author Organization [facility] Address [address] [place] [address] Phone Care Team Providers Care Prestressed Concrete Laborer Name Role Phone Sherman Miller MD Primary Care Provider [phone] Tate Moulton MD Unavailable Tanisha Perkins MD Unavailable [phone] Harsh Ross MD Unavailable [phone] Sueleln Mccann MD Unavailable [phone] Chante Vizcaino MD Unavailable [phone] Reason for Referral * Consultation (Within 2 weeks) - Closed Specialty Diagnoses / Procedures Referred By Nona leon Referred To Contact Diagnoses [facility] Sherman Miller MD Phone: tel: fax: [email or web address] Angelika Rodriguez MD [address] [place] [id number] Phone: tel: mailto: Referral ID Status Reason Start Date Expiration Date Visits Re quested Visits Authorized [id number] Closed 09/04/2023 09/03/2024 6 6 Encounter Details Date Type Department Care Team (Latest Contact Info) Description 05/11/2024 Transcribe Orders [facility] [address] [place] [address] Christie [email or web address] [facility] (Primary Dx) Social History Tobacco Use [...] 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 [employer] Not on file Not on file Not on file documented as of this encounter Plan of Treatment Scheduled Referrals Name Type Priority Associated Diagnoses Order Schedule Ambulatory referral to External Provider Outpatient Referral Routine [facility] Ordered: 05/13/2024 documented as of this encounter Visit Diagnoses Diagnosis [facility]- Primary Other mucopurulent conjunctivitis documented in this encounter Additional Health Concerns Assessment Noted Time PHQ-2 Depression Total Score: 0 02/25/20 23 2:54 PM EST documented as of this encounter Care Teams Prestressed Concrete Laborer Relationship Specialty Start Date End Date Sherman Miller MD [address], [address] [place] [address] PCP - General Internal Medicine 05/15/18 Tate Moulton MD [address] [place] [address], [address] [place] [address] [email or web address] 06/19/18 Tanisha Perkins MD [address] [place] [phone] [email or web address] Oncology 06/19/18 Harsh Ross MD [address] [place] [address] [place] [address] Orthopedic Surgery 10/15/19 Suellen Mccann MD [address] [place] [address] [place] [address] Gastroenterology 10/23/20 Chante Vizcaino MD [address] [place] [address] [email or web address] Cardiology 11/12/22 documented as of this encounter Additional Source Comments The information contained in this document represents components of the legal health record. It is not the complete legal health record.[facility]
--- OUTSIDE RECORDS SUMMARY | 2024-12-11 18:27 | XMS_ITS | Clinical Summary ---
Author Organization [employer] [facility] Address [address] [place] [address] Care Team Providers Care Dough Sheeter Name Role Phone Sherman Miller MD Primary Care Provider [phone] Allergies No known active allergies Medications Medication [...] age to complete this topic Care Teams Dough Sheeter Relationship Specialty Start Date End Date Sherman Miller MD [address] [place] [address] PCP - General Internal Medicine 10/10/19
--- OUTSIDE RECORDS SUMMARY | 2024-12-11 18:27 | XMS_ITS | Clinical Summary ---
Author Organization [facility] Address [address] [place] [address] Phone Care Team Providers Care Decal Cutter Name Role Phone Sherman Miller MD Primary Care Provider [phone] Allergies No known active allergies Medications finasteride [...] mouth 1 (one) time each day. Active et2-jco-mrm-cod liver-vit A-D3 240-1,000 mg capsule Take 1 [...] mouth 2 (two) times a day. Active Immunizations Immunization Administration Dates Next Due Moderna SARS-CoV-2 COVID-19, [...] Description 05/06/2025 10:15 AM EST Office Visit [facility] Hematology Oncology [address] [place] [address] Shadia-Tanisha De La Fuente MD [address] [place] [address] Health Maintenance Due Date Last Done Comments DTaP,Tdap,and Td Vaccines (1 - Tdap) 05/26/1967 Zoster Vaccines (1 of 2) 05/26/1967 Cholesterol Screening (Lipid Panel) 02/07/2022 Falls Risk Assessment 02/07/2022 Social Influencers of Health Screening 02/07/2022 Depression Screening 03/07/2024 COVID-19 Vaccine ( season) 2024 12/17/2022, 01/05/2022, 02/02/2021, Additional history exists Influenza [...] Procedure Name Priority Date/Time Associated Diagnosis Comments COMPREHENSIVE METABOLIC PANEL Routine 07/18/2024 10:26 AM EDT Polycythemia vera ([facility] V24, [facility] V28) from Last 3 Months or Most Recently Relevant to Health Maintenance Results * (ABNORMAL) Comprehensive metabolic panel (07/18/2024 10:26 AM EDT) Sodium 133 133 - 145 mmol/L LAB CHEMISTRY METHOD 07/18/2024 12:21 PM [facility] Potassium 5.1 3.5 - 5.5 mmol/L LAB CHEMISTRY METHOD 07/18/2024 12:21 PM [facility] Chloride 97 96 - 110 mmol/L LAB CHEMISTRY METHOD 07/18/2024 12:21 PM [facility] CO2 24 21 - 32 mmol/L LAB CHEMISTRY METHOD 07/18/2024 12:21 PM [facility] Anion Gap 12(H) 3 - 11 LAB CHEMISTRY METHOD 07/18/2024 12:21 PM [facility] Glucose 86 70 - 100 mg/dL LAB CHEMISTRY METHOD 07/18/2024 12:21 PM [facility] BUN 117(H) 5 - 25 mg/dL LAB CHEMISTRY METHOD 07/18/2024 12:21 PM [facility] Comment:Results verified by repeat testing Creatinine 6.03(H) 0.70 - 1.30 mg/dL LAB CHEMISTRY METHOD 07/18/2024 12:21 PM [facility] Comment:Results verified by repeat testing eGFR 9(L) >=60 mL/min/1. 73m2 LAB CHEMISTRY METHOD 07/18/2024 12:21 PM [facility] Comment:Calculation based on the Chronic Kidney Disease Epidemiology Collaboration (CKD-EPI) equation refit without adjustment for race. BUN/Creatinine Ratio 19.4 LAB CHEMISTRY METHOD 07/18/2024 12:21 PM [facility] Calcium 8.6 8.5 - 10.5 mg/dL LAB CHEMISTRY METHOD 07/18/2024 12:21 PM [facility] AST (SGOT) 16 10 - 42 unit/L LAB CHEMISTRY METHOD 07/18/2024 12:21 PM [facility] ALT (SGPT) 14 10 - 60 unit/L LAB CHEMISTRY METHOD 07/18/2024 12:21 PM [facility] Alkaline Phosphatase 155(H) 42 - 121 unit/L LAB CHEMISTRY METHOD 07/18/2024 12:21 PM [facility] Total Protein 6.8 6.0 - 8.0 g/dL LAB CHEMISTRY METHOD 07/18/2024 12:21 PM [facility] Albumin 3.1(L) 3.2 - 5.0 g/dL LAB CHEMISTRY METHOD 07/18/2024 12:21 PM [facility] Total Bilirubin 0.5 0.0 - 1.4 mg/dL LAB CHEMISTRY METHOD 07/18/2024 12:21 PM EDT [facility] Blood Venous blood specimen / Unknown Venipuncture / Unknown 07/18/2024 10:26 AM EDT 07/18/2024 11:23 AM EDT Tanisha Perkins MD LAB BLOOD ORDERABLE S Final Result [facility] [address] [place] [address], from Last 3 Months or Most Recently Relevant to Health Maintenance Insurance [facility] Care Teams Decal Cutter Relationship Specialty Start Date End Date Sherman Miller MD [address] [place], [place] PCP - General Pediatrics 09/19/18
--- OUTSIDE RECORDS SUMMARY | 2024-12-11 18:27 | XMS_ITS | Clinical Summary ---
Author Organization [facility] Address [address] [address] Care Team Providers Care French Lecturer Name Role Phone Unavailable Primary Care Provider [...] patient's age to complete this topic Insurance [facility]
--- OUTSIDE RECORDS SUMMARY | 2024-12-11 18:28 | XMS_ITS | Clinical Summary ---
Author Organization [employer] Address [address] [place] [address] [address] [place] [address] Care Team Providers Care Stem Threshing Machine Operator Name Role Phone Sherman Miller MD Primary Care Provider [phone] Allergies No known active allergies Medications Aspirin [...] 2023, LVEF 40 to 45%. 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 Polycythemia vera 06/19/2018 Overview (03/08/2024): Therapeutic phlebotomies at [facility] Social History Tobacco Use Types Packs/Day [...] 03/04/2006 03/03/2006 COVID-19 Vaccine (6 - season) 2024 12/17/2022, 01/05/2022, 02/02/2021, Additional history exists Influenza Vaccine (#1) 2024 4, 12/09/2022, 12/22/2021, Additional history exists Tobacco Screening [...] patient's age to complete this topic Insurance [facility] [phone] [employer] [facility] Care Teams Stem Threshing Machine Operator Relationship Specialty Start Date End Date Sherman Miller MD [address] [place] [address], [address] [place] [address] PCP - General Internal Medicine 12/29/23
== END 2024-12-11 15:14 | disposition home or self-care (01) ==
LOC: HO.BBR 15:13
PROVIDERS: PCP Internal Medicine; Visit Provider Internal Medicine
DX: D45 Polycythemia vera (principal)
CPT/HCPCS: 85014; 85018; 99195